=== PATIENT | female | born 1985 | race Caucasian/White ===

== ENCOUNTER → 2020-01-15 09:43 | Outpatient (BNVA) | payer MEDICAID, SELFPAY | PROVIDERS: PCP Internal Medicine; Referring Provider Internal Medicine; Visit Provider Nurse Practitioner Psychiatric/Mental Health | DX: F11.99 Opioid use, unspecified with unspecified opioid-induced disorder (principal); E66.9 Obesity, unspecified; F31.81 Bipolar II disorder; Z68.39 Body mass index [BMI] 39.0-39.9, adult | CPT/HCPCS: 80305; 99213 ==

== ENCOUNTER → 2020-01-19 08:04 | Outpatient (BNVA) | payer MEDICAID, SELFPAY | PROVIDERS: PCP Internal Medicine; Referring Provider Internal Medicine; Visit Provider Surgery | DX: E66.9 Obesity, unspecified (principal); Z68.39 Body mass index [BMI] 39.0-39.9, adult | CPT/HCPCS: 99214 ==

== ENCOUNTER 2020-01-21 08:30 | Outpatient (REF) | payer MEDICAID, SELFPAY ==
[2020-01-23 16:07] LABS: H Pylori Breath Test NOT DETECTED (NOT DETECTED)
== END 2020-01-21 08:31 | disposition home or self-care (01) ==
LOC: HO.LNP 08:30
PROVIDERS: Visit Provider Surgery
DX: E66.01 Morbid (severe) obesity due to excess calories (principal); Z11.0 Encounter for screening for intestinal infectious diseases
CPT/HCPCS: 83013

== ENCOUNTER → 2020-01-26 08:10 | Outpatient (BNVA) | payer MEDICAID, SELFPAY | PROVIDERS: PCP Internal Medicine; Visit Provider Surgery | DX: E66.9 Obesity, unspecified (principal); Z68.38 Body mass index [BMI] 38.0-38.9, adult; Z71.3 Dietary counseling and surveillance | CPT/HCPCS: 99214 ==

== ENCOUNTER 2020-01-27 10:38 | Outpatient (REF) | payer MEDICAID, SELFPAY | END 2020-01-27 10:39 | disposition home or self-care (01) | LOC: HO.LAB 10:38 | PROVIDERS: PCP Internal Medicine; Visit Provider Surgery | DX: Z13.89 Encounter for screening for other disorder (principal) ==

== ENCOUNTER → 2020-01-27 11:15 | Outpatient (BNVA) | payer MEDICAID, SELFPAY | PROVIDERS: PCP Internal Medicine; Visit Provider Physician Assistant ==

== ENCOUNTER 2020-01-29 08:09 | Inpatient (IN) | payer MEDICAID, SELFPAY ==
[2020-01-26 10:20] VITALS: BMI 38.4
[2020-01-27 12:40] LABS: MANUAL DIFF FLAG NO
[2020-01-27 12:54] LABS: Basophils Percent Auto 0.3 % (0-2); Eosinophils Absolute Auto 0.1 X10*3/uL (0.0-0.4); Eosinophils Percent Auto 1.2 % (0-4); Hematocrit 48.4 % (37-47); Hemoglobin 16.1 g/dl (12.0-16.0); Imm Gran Abs Auto 0.01 X10*3/uL (0.00-0.03); Imm Gran Pct Auto 0.2 % (0.0-0.4); Lymphocytes Absolute Auto 1.7 X10*3/uL (1.2-4.9); Mean Corpuscular HGB Conc 33.3 g/dl (31.0-35.0); Mean Corpuscular Hemoglobin 29.8 pg (27.0-33.0); Mean Corpuscular Volume 89.6 fL (80-98); Mean Platelet Volume 10.6 fL (9.4-12.3); Monocytes Absolute Auto 0.3 X10*3/uL (0.1-1.2); Monocytes Percent Auto 5.2 % (2-11); Neutrophils Absolute Auto 3.9 X10*3/uL (2.0-8.3); Neutrophils Percent Auto 65.1 % (45-73); Platelet Count 233 X10*3/uL (160-400); Red Cell Distribution Width 12.6 % (11.0-16.0); White Blood Count 5.9 X10*3/uL (4.8-10.8)
[2020-01-27 12:55] LABS: Estimated Average Glucose 100 mg/dL; Hemoglobin A1c % 5.1 %
[2020-01-27 13:15] LABS: Partial Thromboplastin Time 33.7 SEC (24.1-38.0)
[2020-01-27 13:30] LABS: Alanine Aminotransferase 206 U/L (0-31); Albumin Level 4.5 g/dL (3.5-5.0); Alkaline Phosphatase 126 U/L (39-117); Anion Gap 14 (12-20); Aspartate Amino Transferase 97 U/L (5-31); Bilirubin Total 0.9 mg/dL (0.0-1.0); Blood Urea Nitrogen 13 mg/dL (9-16); C Reactive Protein 0.77 mg/dL (< or = 0.50); Calcium 9.2 mg/dL (8.4-10.2); Carbon Dioxide 24 mmol/L (22-29); Chloride 105 mmol/L (96-108); Cholesterol 154 mg/dL; Creatinine Clr Calc Pharmacy 107.6; Estimated Glomerular Filt Rate > 60; Glucose Random 88 mg/dL (60-115); HDL Cholesterol 39 mg/dL; LDL Cholesterol Calculated 99 mg/dl; Potassium 4.3 mmol/l (3.3-5.1); Sodium 139 mmol/L (135-145); Total Protein 7.1 g/dL (6.5-8.0); Triglycerides 80 mg/dL
[2020-01-27 13:38] LABS: TSH reflex Free T4 0.68 mIU/mL (0.32-4.0)
--- NOTE | 2020-01-27 14:59 | HO.ANESPROP2 ---
Documented by User: Ellen Zaldivar 01/27/20 15:10 HPI - Anesthesia Eval Consult details Narrative: 35yo F for lap sleeve Pt on Suboxone (20mg total daily). Rev'd with Dr Hua and Carlotta Gonzalez NP (prescriber). Pt to continue suboxone preoperatively Cardiac cleared PMFSH Past Medical History Medical History (Updated 01/27/20 @ 15:00 by Ellen Zaldivar) Anxiety Bipolar 2 disorder Depression Obesity Opioid use disorder PTSD (post-traumatic stress disorder) Family History Family History (Updated 01/20/20 @ 15:37 by Masood Calvert [facility]) Father No problems noted. Mother No problems noted. Surgical History Surgical History Hx of bilateral breast reduction surgery Hx of section History of Problems with Anesthesia: No Social History Social History (Updated 01/20/20 @ 15:37 by Masood Calvert [facility]) Are you a primary lpn care manager to a significant other at home: No Do you presently have visiting nurse or other home services: No Alcohol intake: unknown Smoking Status: Former smoker Packs Per Day: 0.5 Cigarettes Per Day: 10.0 Years Smoked: 20 Smoked in Last 30 Days: No Smoking Quit Date: 11/2019 Use of substances other than those prescribed or required for medical reasons: No Substance Use Type: Heroin Substance Use Type Other:: Rx suboxone - S/P cocaine and Opiod abuse Have you been hit, kicked, punched, or otherwise hurt by someone within the past year? If so, by whom?: No [facility]: [facility] Advance Directives: No (SSS PATIENT) Advance Directives Information Provided: No (SSS PATIENT) Recently lost weight without trying: No Meds Allergies Allergy/AdvReac Type Severity Reaction Status Date / Time Sulfa (Sulfonamide AdvReac Intermediate Itching Verified 01/26/20 10:17 Antibiotics) [SULFA(SULFONAMIDE ANTIBIOTICS)] sumatriptan [From IMITREX] AdvReac Mild Vomiting Verified 01/26/20 10:17 Home Medications Medication Instructions Recorded Confirmed Type clonazepam 0.5 mg tablet 0.5 mg PO BID 01/15/20 01/29/20 History duloxetine 20 mg capsule,delayed 20 mg PO DAILY cap 01/15/20 01/26/20 History release cholecalciferol (vitamin D3) 50 mcg PO DAILY 01/26/20 01/29/20 History [Vitamin D3] cyanocobalamin (vitamin B-12) 1,000 mcg PO DAILY 01/26/20 01/29/20 History [Vitamin B-12] Exam Exam Date and Time: January 27, 2020 1459 Height,Weight and Vital Signs: Height 5 ft 3 in Weight 98.43 kg Pertinent Lab Results Pertinent Lab Results: Laboratory Tests 01/27/20 01/27/20 01/27/20 11:10 11:10 11:10 WBC 5.9 RBC 5.40 Hgb 16.1 H Hct 48.4 H MCV 89.6 MCH 29.8 MCHC 33.3 RDW 12.6 Plt Count 233 MPV 10.6 Immature Gran % (Auto) 0.2 Neut % (Auto) 65.1 Lymph % (Auto) 28.0 Surry % (Auto) 5.2 Eos % (Auto) 1.2 Baso % (Auto) 0.3 Lymph # (Auto) 1.7 Surry # (Auto) 0.3 Eos # (Auto) 0.1 Baso # (Auto) 0.0 Abs Immat Gran (auto) 0.01 Absolute Neuts (auto) 3.9 Absolute Nucleated RBC 0.000 Nucleated RBC % (auto) 0.0 APTT 33.7 Sodium 139 Potassium 4.3 Chloride 105 Carbon Dioxide 24 Anion Gap 14 BUN 13 Creatinine 0.80 Estim Creat Clear Calc 107.6 Estimated GFR > 60 Random Glucose 88 Estimat Average Glucose Hemoglobin A1c % Calcium 9.2 Total Bilirubin 0.9 AST 97 H ALT 206 H Alkaline Phosphatase 126 H C-Reactive Protein 0.77 H Total Protein 7.1 Albumin 4.5 Triglycerides 80 Cholesterol 154 LDL Cholesterol, Calc 99 HDL Cholesterol 39 TSH 0.68 Blood Type Antibody Screen 01/27/20 01/27/20 11:10 11:10 WBC RBC Hgb Hct MCV MCH MCHC RDW Plt Count MPV Immature Gran % (Auto) Neut % (Auto) Lymph % (Auto) Surry % (Auto) Eos % (Auto) Baso % (Auto) Lymph # (Auto) Surry # (Auto) Eos # (Auto) Baso # (Auto) Abs Immat Gran (auto) Absolute Neuts (auto) Absolute Nucleated RBC Nucleated RBC % (auto) APTT Sodium Potassium Chloride Carbon Dioxide Anion Gap BUN Creatinine Estim Creat Clear Calc Estimated GFR Random Glucose Estimat Average Glucose 100 Hemoglobin A1c % 5.1 Calcium Total Bilirubin AST ALT Alkaline Phosphatase C-Reactive Protein Total Protein Albumin Triglycerides Cholesterol LDL Cholesterol, Calc HDL Cholesterol TSH Blood Type A Positive Antibody Screen NEGATIVE Narrative Narrative: EKG 12/03/19: SB@49, ?LAE, poor R wave progression (Nain likely r/t clonidine tx per cardiology clearance) ECHO 12/2019: LVEF 60-65%, no obvious valve path Assessment and Plan Assessment Anesthesia Assessment: Chart Reviewed Documented by User: Stacey Ann 01/29/20 10:22 PMFSH Past Medical History Medical History (Updated 01/27/20 @ 15:00 by Ellen Zaldivar) Anxiety Bipolar 2 disorder Depression Obesity Opioid use disorder PTSD (post-traumatic stress disorder) Family History Family History (Updated 01/20/20 @ 15:37 by Masood Calvert CMA) Father No problems noted. Mother No problems noted. Surgical History Surgical History Hx of bilateral breast reduction surgery Hx of section History of Problems with Anesthesia: No Social History Social History (Updated 01/20/20 @ 15:37 by Masood Calvert CMA) Are you a primary lpn care manager to a significant other at home: No Do you presently have visiting nurse or other home services: No Alcohol intake: unknown Smoking Status: Former smoker Packs Per Day: 0.5 Cigarettes Per Day: 10.0 Years Smoked: 20 Smoked in Last 30 Days: No Smoking Quit Date: 11/2019 Use of substances other than those prescribed or required for medical reasons: No Substance Use Type: Heroin Substance Use Type Other:: Rx suboxone - S/P cocaine and Opiod abuse Have you been hit, kicked, punched, or otherwise hurt by someone within the past year? If so, by whom?: No [facility]: [facility] Advance Directives: No (SSS PATIENT) Advance Directives Information Provided: No (SSS PATIENT) Recently lost weight without trying: No Meds Allergies Allergy/AdvReac Type Severity Reaction Status Date / Time Sulfa (Sulfonamide AdvReac Intermediate Itching Verified 01/26/20 10:17 Antibiotics) [SULFA(SULFONAMIDE ANTIBIOTICS)] sumatriptan [From IMITREX] AdvReac Mild Vomiting Verified 01/26/20 10:17 Home Medications Medication Instructions Recorded Confirmed Type clonazepam 0.5 mg tablet 0.5 mg PO BID 01/15/20 01/29/20 History duloxetine 20 mg capsule,delayed 20 mg PO DAILY cap 01/15/20 01/26/20 History release cholecalciferol (vitamin D3) 50 mcg PO DAILY 01/26/20 01/29/20 History [Vitamin D3] cyanocobalamin (vitamin B-12) 1,000 mcg PO DAILY 01/26/20 01/29/20 History [Vitamin B-12] Exam Height,Weight and Vital Signs: Vital Signs Temp Pulse Resp BP Pulse Ox 01/29/20 08:32 97.9 F 61 16 112/74 96 Pertinent Lab Results Pertinent Lab Results: 12 lead ekg obtained secondsry to abnormal ekg with flipped T waves on monitor screen. Showed flattened T waves V2 lead. Marked SB 43 Airway Mallampati Class: II TM Dist: >3cm Neck ROM: Full Heart: RRR Lungs: CTAB Assessment and Plan Assessment Anesthesia Assessment: Anesthesia Plan Discussed and Chart Reviewed Final Anesthetic Review NPO: Yes ASA Class: III Final Preanesthetic Review: No Changes in Pt Med Stat, Meds/Allgs Chart Reviewed, Consent Obtained/Reviewed and Anes Risks/Benef Reviewed Patient Risk: Intermediate Procedure Risk: Intermediate Anesthetic Plan Anesthetic Plan: GA Disposition: Standard PACU and Inp. Admit - Standard Bed
[2020-01-29] VITALS (13 sets, daily range): BP systolic 110–146; BP diastolic 66–96; PULSE 42–92; RESP 11–19; TEMP 35.9–36.6; O2SAT 94–100
--- NOTE | 2020-01-29 07:48 | PC.NURSE ---
patient is late. called her number and went to voice mail unable to leave a message due to voice mail being full.
--- NOTE | 2020-01-29 08:07 | PC.NURSE ---
md de los santos is aware that the patient only drank 1/2 the prep but states her output is clear. also has a mirena. no preg test needed.
[2020-01-29] MEDS: Lactated Ringers 1,000 ML 100 ML IVCONT (08:49)
[2020-01-29] MEDS: Lactated Ringers 1,000 ML 999 ML IVCONT (08:50)
[2020-01-29 09:08] LABS: SARS COV2 PCR INHOUSE NEGATIVE (Negative)
--- NOTE | 2020-01-29 09:25 | ECG_ITS ---
Test Reason : ANESTHESIA Blood Pressure : / mmHG Vent. Rate : 043 BPM Atrial Rate : 043 BPM P-R Int : 168 ms QRS Dur : 088 ms QT Int : 460 ms P-R-T Axes : 053 019 018 degrees QTc Int : 388 ms Marked sinus bradycardia RSR' or QR pattern in V1 suggests right ventricular conduction delay Early repolarization Abnormal ECG When compared with ECG of 26-NOV-2019 09:41, Vent. rate has decreased BY 36 BPM Referred By: Stacey Ann Electronically Signed By:STONE MALLORY MD
[2020-01-29] MEDS: Gabapentin 600 MG TABLET PO ×2 (09:32→09:35)
--- NOTE | 2020-01-29 09:37 | PC.NURSE ---
ekg being performed due to inverted t waves. asymptomatic.
--- NOTE | 2020-01-29 09:54 | MHC.SHP ---
Pre-Procedural Eval Section A The patient is an INPATIENT: Yes The History & Physical has been completed within 30 days and I have reviewed it.: Yes Section B Chief Complaint: Obesity Details of Present Illness: and cholelithiasis with elevated liver function tests Relevant Family History (Specify if Yes): No Relevant Social History: None Present Medications: see Short Stay Collaborative assessment Allergies: Allergies Allergy/AdvReac Type Severity Reaction Status Date / Time Sulfa (Sulfonamide AdvReac Intermediate Itching Verified 01/26/20 10:17 Antibiotics) [SULFA(SULFONAMIDE ANTIBIOTICS)] sumatriptan [From IMITREX] AdvReac Mild Vomiting Verified 01/26/20 10:17 Review of Systems Sugical H&P ROS: Negative: Constitution, Cardiovascular, Respiratory, Neurological, Psychiatric, Hem-Onc, Allergic/Immunologic, Gastrointestinal, Genitourinary, Musculoskeletal, Integumentary, Endocrine and Eyes/Ears/Nose/Throat Exam Surgical H&P Exam: Normal: HEENT, Normal: Heart, Normal: Lungs, Normal: Extremities, Normal: Abdomen, Normal: Skin and Normal: Neurological Plan Diagnosis/Plan: Change (Sleeve gastrectomy and possible cholecystectomy. Plan was discussed with the patient.) Patient has been examined and remains a candidate for the planned procedure
[2020-01-29] MEDS: ceFAZolin Sodium/Dextrose,Iso 2 GM/50 ML PIGGYBACK IV ×2 (10:06→14:58)
--- NOTE | 2020-01-29 12:47 | P.BOP_ITS ---
Brief Operative Note Date of procedure: 01/29/20 Pre-op diagnosis: Refractory severe obesity with a BMI of 38.5 kg/m2 and associated comorbidities Post-op diagnosis: same (& diaphragmatic hernia) Procedure: INITIAL PATIENT BMI ON PRESENTATION AT OUR OFFICE: 42.4 kg/m2 LAST BMI BEFORE SURGERY: 38.5 kg/m2 COMORBIDITIES: Diaphragmatic hernia, anxiety, depression, asymptomatic cholelithiasis, elevated liver nezymes, liver steatosis, asthma, history of heroin addiction The patient participated in an intensive weekly lifestyle intervention and exercise program during which the patient has lost between the initial office visit and the last preoperative visit 21.9 lbs, or 9.16% of initial actual body weight. The patient met the BMI-criteria for bariatric surgery based on the BMI on initial presentation. The patient should not be penalized for achieving such weight loss because it is not sustainable long-term without surgical intervention and it was achieved in preparation for bariatric surgery under my direction and based on my published research ([email or web address] and [email or web address]/[email or web address])[email or web address]-X/pdf) that a 10% preoperative weight loss improves long-term weight loss after surgery and reduces perioperative complications. Insurance carriers such as [facility] have endorsed my recommendations and have included in their policies criteria to include a 10% preoperative weight loss requirement. PROCEDURE: Esophago-gastroscopy, laparoscopic repair of incarcerated diaphragmatic hernia, laparoscopic sleeve gastrectomy and laparoscopic gastropexy INDICATIONS: This is a 35 year-old female who was electively scheduled for laparoscopic, possibly open sleeve gastrectomy. The risks and complications of the procedure were discussed with the patient in advance, particularly the possibility of ; pulmonary embolism; staple line leak; bleeding; GERD; cardiac, pulmonary, or renal complications; as well as long-term problems such as insufficient weight loss, vitamin deficiency, strictures, or ulcers. The patient understood all the risks, and was in agreement to proceed with surgery. DESCRIPTION OF PROCEDURE: After informed consent was obtained from the patient, the patient was given preoperative antibiotics, and was transferred to the operating room. After successful induction of general anesthesia, pneumatic compressive devices were placed on both lower extremities. An upper endoscopy was performed next. The oropharynx and esophagus appeared to be within normal limits. There was a diaphragmatic hernia present of moderate size consistent with the findings of the preoperative upper GI. The stomach was entered. Then after all fluid and air were suctioned and the stomach was fully decompressed, the scope was withdrawn and secured in the mid esophagus. The patient was then prepped and draped in the usual sterile manner, and abdominal access was established at the right upper quadrant with the Leola technique. A 12 mm blunt port was inserted, and the abdomen was insufflated with CO2 to a pressure of 15 mmHg. Under direct visualization, additional ports were placed, specifically two 5 mm Versi-step ports to the left upper quadrant, and a 5 mm Versi-Step port to the right upper quadrant. 1% lidocaine plan was used to infiltrate all port sites as well as all fascia defects. Using the EndoClose suture passer device, I placed a #1 Polysorb tie across the falciform ligament in order to retract it up against the abdominal wall and prevent injury of the ligament with our instruments during the procedure. Following that, the patient was placed in a steep reverse Trendelenburg position. An additional 5 mm port was placed to the right flank for the Mediflex retractor that was used to retract the left lobe of the liver. The gastro-esophageal fat pad was opened with the ultrasonic device (Thunderbeat, Olympus) and the anterior esophagus and hiatus were exposed. The angle of His was opened with the ultrasonic device the fundus of the stomach from any diaphragmatic and splenic attachments. I then opened the gastrocolic ligament between the transverse colon and the greater curvature of the stomach with the ultrasonic device to enter the lesser sac and facilitate the ligation of the short gastric vessels. I started at a mid-point along the greater curvature and using the Thunderbeat, all short gastric vessels were divided all the way to the angle of His until the left juan was completely dissected at its entirety. I then divided the gastro-colic ligament distally to a distance of about 3-4 cm proximal to the esophagus. There was an obvious significant-sized hiatal hernia. I continued dissecting along the hiatus toward the left juan and the angle of His. I fully mobilized the fat pad that was incarcerated in the hernia. I then continued by dissecting even further into the posterior retro-esophageal space all the way to the angle of His. I dissected completely the right juan as well. I continued to mobilize the esophagus into the mediastinum circumferentially. Both vagal nerves were seen and preserved. At that point, I was able to have at least 3 to 5 cm of esophagus into the abdomen. After I completely mobilized the esophagus from both the left and right juan and I had a good mobilization of the esophagus circumferentially, I closed the hernia defect with three interrupted #0 Surgidac sutures using the Endo Stitch device, two of which were placed posterior and one anterior to the esophagus. The stomach was then divided transversely with one Endo ADRIENNE-45 purple and four ADRIENNE-60 articulating orange loads using the AEON stapler and loads. Every effort was made that the gastric sleeve had a tubular shape and an even caliber throughout. Once the sleeve resection was completed, the staple line of the gastric sleeve was reinforced with Hemoclips. The resected stomach was retrieved without difficulty from the Leola port. A gastropexy was then performed in order to prevent postoperative GERD and partial gastric volvulus. Several interrupted 2.0 Surgidac sutures were placed between the sleeve's staple line and the previously divided greater omentum and gastro-colic ligament using the Endo-Stitch device. An upper endoscopy was performed. There was no narrowing at the GE junction. The scope was easily advanced all the way to the pylorus which was clearly visualized. There was no narrowing anywhere and the sleeve's caliber was even throughout. The sleeve's staple line was inspected and there was no evidence of ischemia, bleeding or dehiscence. At that point the gastroscope was withdrawn from the patient?s mouth while we were decompressing the bowel and the stomach from any remaining air. I looked into the lesser sac to see how the sleeve was situating and it was situating well. There was no bleeding from the staple line, spleen, or short gastric vessels. The Mediflex retractor was removed, and the undersurface of the liver was inspected and there was no bleeding. The patient was placed in supine position. The gallbladder was inspected. It was retracted cephalad. There were few adhesions but it was not inflammed or thickened. I decided not to proceed with cholecystectomy at this time. We may plan this once weight loss is achieved. I closed the fascial defect of the 12 mm port site with a figure of eight #1 Polysorb suture. Then 100 cc 0.25 % Marcaine plain with 10 mg of Dexamethasone were used to infiltrate the fascial closure as well as all skin incisions. At this point, the abdomen was deflated, all ports were removed under direct vision, and no bleeding was noted from any of the port sites. The skin incisions were irrigated with saline and were closed with 4-0 absorbable monofilament sutures. Steri-Strips and OpSites were used to cover all incisions. The patient was extubated and was transferred in stable condition to the recovery room for further care. I was present and performed all martines parts of the procedure. Ms. Todd was the first front ventilator. There were no residents to assist with this case. Please send copy of the operative report to Dr. Remy James. Nick Chen MD, PhD, FACS Surgeon: Gilbert Chen MD Anesthesia: GETA, local and other (TAP block) Wet Machine Tender: Sophie Todd Estimated blood loss (mL): 10 Tourniquet time (min): 0 IV fluids (mL): 3,000 Urine output (mL): 0 (No James to record) Pathology: other (Stomach) Condition: stable Disposition: PACU
--- NOTE | 2020-01-29 12:56 | P.PNGS_ITS ---
Subjective Subjective Interval history: Patient has mild incisional pain. Was able to ambulate and use the incentive spirometer. Physical Exam Vital Signs: Vital Signs: Vital Signs Temp Pulse Resp BP Pulse Ox 01/29/20 12:40 97.8 F 71 14 121/85 100 01/29/20 08:32 97.9 F 61 16 112/74 96 Body Mass Index 38.4 GI: Inspection: Yes normal to inspection and Yes incision (incisions dry, clean and intact) Extrem: Right lower extremity: normal to inspection (no calf tenderness) Left lower extremity: normal to inspection (no calf tenderness) Progress Note: A&P Assessment and plan (1) Opioid use disorder: Problem details: Suboxone daily (8+4+8) Status: Acute (2) BMI 39.0-39.9,adult: Status: Acute (3) BMI 38.0-38.9,adult: Status: Acute (4) Obesity: Status: Acute Assessment and Plan: 35 year old female was admitted 01/29/20 with morbid obesity and comorbidities. Problem 1: s/p laparoscopic sleeve gastrectomy, diaphragmatic hernia repair, gastropexy Status: Doing well Plan: Check am labs, If OK, will continue phase 1 bariatric diet and discharge later today. (5) Bipolar 2 disorder: Status: Acute (6) Diaphragmatic hernia: Status: Acute (7) S/P laparoscopic sleeve gastrectomy: Status: Acute (8) Status post repair of paraesophageal diaphragmatic hernia: Status: Acute (9) Steatosis, liver: Status: Acute (10) Asthma: Status: Acute (11) Cholelithiasis: Status: Acute (12) Elevated liver enzymes: Status: Acute Fall Risk Details Current Medications: Current Medications Generic Name Dose Route Start Last Admin Trade Name Freq PRN Reason Stop Dose Admin Buprenorphine/Naloxone 1 film 01/29/20 21:00 Buprenorphine/Naloxone 8/2 Mg Film SUBLINGUAL BID PERRY Buprenorphine/Naloxone 1 film 01/29/20 15:00 Buprenorphine/Naloxone 4/1 Mg Film SUBLINGUAL DAILY PERRY Buprenorphine/Naloxone 1 film 01/30/20 09:00 Buprenorphine/Naloxone 4/1 Mg Film SUBLINGUAL DAILY PERRY Clonazepam 0.5 mg 01/29/20 12:44 Clonazepam 0.5 Mg Tablet PO BID PRN Anxiety Clonazepam 0.5 mg 01/29/20 21:00 Clonazepam 0.5 Mg Tablet PO BID PERRY Clonidine HCl 0.2 mg 01/29/20 15:00 Clonidine Hcl 0.2 Mg Tablet PO BID [facility] Protocol Clonidine HCl 0.3 mg 01/29/20 22:00 Clonidine Hcl 0.1 Mg Tablet PO DAILY [facility] Protocol Duloxetine HCl 20 mg 01/30/20 09:00 Duloxetine Hcl 20 Mg Capsule.Dr PO DAILY [facility] Famotidine 20 mg 01/29/20 13:00 Famotidine/Pf 20 Mg/2 Ml Vial IVPUSH BID [facility] Fentanyl 25 mcg 01/29/20 10:32 Fentanyl Citrate/Pf 100 Mcg/2 Ml Vial IVPUSH Q5M PRN Pain, Moderate (Pain Scale 4-6 Hydromorphone HCl 0.25 mg 01/29/20 10:32 Hydromorphone Hcl 0.5 Mg/0.5 Ml Syringe IVPUSH Q5M PRN Pain, Severe (Pain Scale 7-10) Hydromorphone HCl 0.25 mg 01/29/20 12:39 Hydromorphone Hcl 0.5 Mg/0.5 Ml Syringe IVPUSH Q4H PRN Pain, Severe (Pain Scale 7-10) Lactated Ringer's 1,000 mls @ 100 mls/hr 01/29/20 07:45 01/29/20 08:49 Lr IVCONT 100 mls/hr .Q10H PERRY Administration Lactated Ringer's 1,000 mls @ 150 mls/hr 01/29/20 12:45 Lr IVCONT .Q6H40M [facility] Cefazolin Sodium/Dextrose 2 gm in 50 mls @ 100 mls/hr 01/29/20 12:39 Ancef IV 01/29/20 13:08 POSTOP ONE Acetaminophen 1,000 mg in 100 mls @ 400 mls/hr 01/29/20 12:45 Ofirmev IV Q6H [facility] Metoclopramide HCl 10 mg 01/29/20 12:39 Metoclopramide Hcl 10 Mg/2 Ml Vial IVPUSH Q6H PRN Nausea Ondansetron HCl 4 mg 01/29/20 10:32 Ondansetron Hcl 4 Mg/2 Ml Vial IVPUSH ONCE PRN Nausea and Vomiting Ondansetron HCl 4 mg 01/29/20 12:45 Ondansetron Hcl 4 Mg/2 Ml Vial IVPUSH Q4H PERRY Sodium Chloride 3 ml 01/29/20 16:00 0.9 % Sodium Chloride Flush 3 Ml Syringe IVFLUSH QSHIFT PERRY Time Spent With Patient Time: Total time spent is greater than 50% in coordination of care (as documented) at patient's floor/unit and/or counseling patient: Time with patient: less than 15 minutes
[2020-01-29] MEDS: Famotidine/PF 20 MG/2 ML VIAL IVPUSH ×2 (13:07→20:58)
[2020-01-29 13:32] LABS: Insulin Level Total 5.6 uIU/mL
[2020-01-29 13:45] LABS: Hematocrit 46.3 % (37-47); Hemoglobin 15.4 g/dl (12.0-16.0)
[2020-01-29 14:07] LABS: Anion Gap 12 (12-20); Blood Urea Nitrogen 10 mg/dL (9-16); Calcium 8.9 mg/dL (8.4-10.2); Carbon Dioxide 25 mmol/L (22-29); Chloride 104 mmol/L (96-108); Estimated Glomerular Filt Rate > 60; Glucose Random 111 mg/dL (60-115); Potassium 4.2 mmol/l (3.3-5.1); Sodium 137 mmol/L (135-145)
[2020-01-29] MEDS: Lactated Ringers 1,000 ML 150 ML IVCONT ×2 (14:15→20:23)
[2020-01-29] MEDS: ondansetron HCL 4 MG/2 ML VIAL IVPUSH ×2 (14:18→20:59)
--- NOTE | 2020-01-29 14:53 | MHC.CM.PN ---
NURSE SERVICE ASSOCIATE NOTE ELECTRONIC MEDICAL RECORD REVIEWED ALONG WITH CASE DISCUSSED WITH STAFF NURSE. MET WITH PATIENT AND EXPLAINED THE ROLE OF THE NURSE CARE MANAGERIN THE TRANSITION FROM THE HOSPITAL TO HOME , PATIENT IS OPERATIVE DAY BARIATRIXC SURGERY, MET PATIENT WHOM REPORTED THAT SHE LIVES WITH HER PARENTS AND 13 YEAR OLD DAUGHTER, SHE IS ACTIVE, INDEPENDENT IN ALL ADLS AND MOBILITY WITHOUT ANY DEVICE, SHE HAS A HISTORY OF SUBSTANCE ABUSE AND \IS FOLLOWED IN THE [facility] SHE ALSO HAS A MENTAL HEALTH HISTORY AND IS FOLLOWED BY BOTH PSYCHIATRIST AND THEARPIST , DISCHARGE PLAN HOME NO NEW SERVICES SELF RESUMPTIN OF HER [facility] FOLLOW UP SELF RESUMPTION OF HER MENTAL HEALTH COUNSELING TRANSP-FAMILY PCP DR HERNANDEZ , SHE WAS INSTRUCTED TO CALL HIME FOR POST DISCHAGRE FOLLOW UP BARIATRIC F/U PER DISCHAGE INSTRUCTINS
[2020-01-29] MEDS: Buprenorphine/Naloxone 4/1 mg FILM 1 FILM SUBLINGUAL (14:58)
[2020-01-29] MEDS: HYDROmorphone HCl 0.5 MG/0.5 ML SYRINGE 0.25 MG IVPUSH (17:05)
[2020-01-29] MEDS: Buprenorphine/Naloxone 8/2 mg FILM 1 FILM SUBLINGUAL (21:00)
[2020-01-29] MEDS: cloNIDine HCL 0.2 MG TABLET PO (21:02)
[2020-01-29] MEDS: cloNIDine HCL 0.1 MG TABLET 0.3 MG PO (21:03)
[2020-01-30] MEDS: Lactated Ringers 1,000 ML 150 ML IVCONT (02:27)
[2020-01-30 03:35] VITALS: BP 127/75; PULSE 42; RESP 16; TEMP 36.5; O2SAT 97
[2020-01-30 06:17] LABS: MANUAL DIFF FLAG NO
[2020-01-30] MEDS: ondansetron HCL 4 MG/2 ML VIAL IVPUSH (06:18)
[2020-01-30 06:40] LABS: Basophils Percent Auto 0.1 % (0-2); Hematocrit 40.1 % (37-47); Hemoglobin 13.6 g/dl (12.0-16.0); Imm Gran Abs Auto 0.03 X10*3/uL (0.00-0.03); Imm Gran Pct Auto 0.3 % (0.0-0.4); Lymphocytes Absolute Auto 1.8 X10*3/uL (1.2-4.9); Lymphocytes Percent Auto 17.3 % (20-40); Mean Corpuscular HGB Conc 33.9 g/dl (31.0-35.0); Mean Corpuscular Volume 88.5 fL (80-98); Monocytes Absolute Auto 0.6 X10*3/uL (0.1-1.2); Monocytes Percent Auto 5.5 % (2-11); Neutrophils Absolute Auto 7.8 X10*3/uL (2.0-8.3); Neutrophils Percent Auto 76.8 % (45-73); Platelet Count 180 X10*3/uL (160-400); Red Blood Count 4.53 X10*6/uL (4.20-5.50); Red Cell Distribution Width 12.1 % (11.0-16.0); White Blood Count 10.1 X10*3/uL (4.8-10.8)
[2020-01-30 06:43] LABS: Anion Gap 14 (12-20); Blood Urea Nitrogen 9 mg/dL (9-16); Calcium 8.4 mg/dL (8.4-10.2); Carbon Dioxide 22 mmol/L (22-29); Chloride 106 mmol/L (96-108); Creatinine Clr Calc Pharmacy 126.6; Estimated Glomerular Filt Rate > 60; Glucose Random 100 mg/dL (60-115); Potassium 4.5 mmol/l (3.3-5.1); Sodium 137 mmol/L (135-145)
[2020-01-30 07:35] VITALS: BP 100/61; PULSE 63; RESP 18; TEMP 36.3; O2SAT 97
--- NOTE | 2020-01-30 11:36 | MHC.CM.PN ---
NURSE [employer] NOTE LATE ENTRY ELECTRONIC MEDICAL RECORD REVIEWED ALONG WITH CASE DISCUSSED WITH STAFF JAMES . PATIENT IS AWARE THAY SHE WILL BE DISCHAGED HOME TODAY NO SERVCIES (NEW) SELF RESUMTPION OF THE [facility] FOR [facility]BOX[facility] SELF RESUMPTION OF HER MENTAL HEALTH COUNSELING SERVICES TRANSPORTATION FAMILY PCP PATIENT INSTRUCTED TO CALL FOR POST HOSPITALIZATION DISCHARGE BARIATRIC SURGERY FOLLOW UP INDICATED ON THE DISCHAGRE INST\RUCTIONS
--- NOTE | 2020-01-30 13:43 | HO.POSTANES ---
Post Anesthesia Evaluation Post Anesthesia Evaluation Vital Signs: Vital Signs Temp Pulse Resp BP Pulse Ox 01/30/20 07:35 97.4 F 63 18 100/61 97 01/30/20 03:35 97.7 F 42 L 16 127/75 97 Anesthesia: General Endotracheal-GETA Mental Status: Awake Pain Control: Satisfactory Nausea/Vomiting: None Hydration: Adequate Anesthesia-Related Issues: No Anes. Related Issues
--- NOTE | 2020-03-24 13:08 | P.DS_ITS ---
DS: Providers Provider Date of admission: 01/29/20 08:09 Primary care physician: Unknown Physician DS: Diagnosis Discharge Diagnosis (1) Opioid use disorder: Status: Acute (2) BMI 39.0-39.9,adult: Status: Acute (3) BMI 38.0-38.9,adult: Status: Acute (4) Obesity: Status: Acute (5) Bipolar 2 disorder: Status: Acute (6) Diaphragmatic hernia: Status: Acute (7) S/P laparoscopic sleeve gastrectomy: Status: Acute (8) Status post repair of paraesophageal diaphragmatic hernia: Status: Acute (9) Steatosis, liver: (10) Asthma: (11) Cholelithiasis: Status: Acute (12) Elevated liver enzymes: Status: Acute DS: Medications Discharge Medications Home Medications: Home Medications Medication Instructions Recorded Confirmed clonazepam 0.5 mg tablet 0.5 mg PO BID 01/15/20 01/29/20 duloxetine 20 mg capsule,delayed 20 mg PO DAILY cap 01/15/20 01/26/20 release Previous Rx's Medication Instructions Recorded ondansetron HCl 4 mg tablet 4 mg PO Q6H PRN #30 tab 01/26/20 pantoprazole 40 mg tablet,delayed 40 mg PO DAILY #30 tab 01/26/20 release sucralfate 1 gram tablet 1 g PO BID #60 tab 02/19/20 sucralfate 100 mg/mL oral 10 ml PO BID #420 ml 02/19/20 suspension buprenorphine 4 mg-naloxone 1 mg 1 film SUBLINGUAL DAILY #21 ea 03/04/20 sublingual film buprenorphine 8 mg-naloxone 2 mg 1 film SUBLINGUAL BID #42 ea 03/04/20 sublingual film DS: Summary Time Spent with Patient Time attestation: Total time spent providing and/or coordinating discharge services: Physical Exam Vital Signs: Vital Signs: Last Vital Signs Temp 97.4 F 01/30/20 07:35 Pulse 63 01/30/20 07:35 Resp 18 01/30/20 07:35 BP 100/61 01/30/20 07:35 Pulse Ox 97 01/30/20 07:35 Body Mass Index 38.4 DS: Data Data Completed and Pending Completed studies during hospitalization [Text1]: Pending at discharge 01/29/20 12:41 Surgical [PTH] Routine Procedures Excision of Stomach, Percutaneous Endoscopic Approach, Vertical (01/29/20) Repair Diaphragm, Percutaneous Endoscopic Approach (01/29/20) Labs on day of discharge: 01/27/20 11:10 Type and Screen Routine C Reactive Protein Routine Complete Blood Count Auto Diff Routine Comprehensive Met. Panel Routine Hemoglobin A1c Routine Insulin Level Total Routine Lipid Panel Routine Partial Thromboplastin Time Routine TSH reflex Free T4 Routine 01/29/20 07:41 Acetaminophen [Ofirmev] 1,000 mg in 100 ml IV PREOP Gabapentin [Neurontin] 600 mg PO PREOP ONE 01/29/20 07:45 Lactated Ringers [Lr] 1,000 ml IVCONT 100 mls/hr 01/29/20 07:57 SARS COV2 PCR INHOUSE Stat 01/29/20 09:22 Gabapentin [Neurontin] 300 mg .ROUTE .STK-MED ONE 01/29/20 09:23 Acetaminophen [Ofirmev] 1,000 mg in 100 ml IV As directed 01/29/20 09:25 ECG 12 lead EKG Stat 01/29/20 09:26 EKG Documentation DIRECTED 01/29/20 09:35 Gabapentin [Neurontin] 300 mg .ROUTE .STK-MED ONE 01/29/20 09:51 dexAMETHasone Sod Phosphate/PF [Decadron] 10 mg .ROUTE .STK-MED ONE 01/29/20 09:52 Lidocaine HCl 1 % MPF [Xylocaine 1 % MPF] 5 ml .ROUTE .STK-MED ONE 01/29/20 09:53 Bupivacaine MPF 0.25 % [Sensorcaine-MPF 0.25% 10 ML] 10 ml .ROUTE .STK-MED ONE 01/29/20 09:56 ceFAZolin Sodium/Dextrose,Iso [Ancef] 2 gm in 50 ml IV PREOP 01/29/20 Breakfast NPO Diet Lactated Ringers [Lr] 1,000 ml IVCONT 999 mls/hr 01/29/20 10:06 ceFAZolin Sodium/Dextrose,Iso [Ancef] 2 gm in 50 ml .ROUTE As directed 01/29/20 10:10 EKG Documentation DIRECTED 01/29/20 10:32 Continuous pulse oximetry CONT Vital Signs Q1H Vital Signs Q5MIN HYDROmorphone HCl [Dilaudid] 0.25 mg IVPUSH Q5M PRN fentaNYL citrate/PF [Sublimaze] 25 mcg IVPUSH Q5M PRN ondansetron HCL [Zofran] 4 mg IVPUSH ONCE PRN 01/29/20 10:33 Oxygen administration Nasal Cannula 2 lpm 01/29/20 12:39 Ambulate Q4H WHILE AWAKE Compression Therapy QSHIFT Head of bed elevation DIRECTED Incentive Spirometry Q1HR WHILE AWAKE Intake and Output Q4HR Up ad sean .Continous Code Status Routine HYDROmorphone HCl [Dilaudid] 0.25 mg IVPUSH Q4H PRN Metoclopramide HCl [Reglan] 10 mg IVPUSH Q6H PRN 01/29/20 12:40 Apply Abdominal Binder TOLERATED Continuous pulse oximetry CONT Vital Signs Q4H 01/29/20 12:41 fentaNYL citrate/PF [Sublimaze] 100 mcg .ROUTE .STK-MED ONE Surgical [PTH] Routine 01/29/20 12:44 clonazePAM [KlonoPIN] 0.5 mg PO BID PRN 01/29/20 12:45 Acetaminophen [Ofirmev] 1,000 mg in 100 ml IV Q6H Lactated Ringers [Lr] 1,000 ml IVCONT 150 mls/hr 01/29/20 13:00 Famotidine/PF [Pepcid/PF] 20 mg IVPUSH BID 01/29/20 13:32 Basic Metabolic Panel Stat Hemoglobin and Hematocrit Stat 01/29/20 14:00 ondansetron HCL [Zofran] 4 mg IVPUSH Q8H 01/29/20 15:00 Buprenorphine/Naloxone 4/1 mg [Suboxone 4/1 mg] 1 film SUBLINGUAL ONCE@1500 Gabapentin [Neurontin] 300 mg PO DAILY@1500 cloNIDine HCL [Catapres] 0.2 mg PO BID@0800,1500 01/29/20 16:00 0.9 % Sodium Chloride Flush [NS Flush] 3 ml IVFLUSH QSHIFT ceFAZolin Sodium/Dextrose,Iso [Ancef] 2 gm in 50 ml IV ONCE@1600 01/29/20 21:00 Buprenorphine/Naloxone 8/2 mg [Suboxone 8/2 mg] 1 film SUBLINGUAL BID cloNIDine HCL [Catapres] 0.2 mg PO BID@0800,2100 cloNIDine HCL [Catapres] 0.3 mg PO BEDTIME 01/30/20 06:02 Basic Metabolic Panel DAILY@0600 Complete Blood Count Auto Diff DAILY@0600 01/30/20 09:00 Buprenorphine/Naloxone 4/1 mg [Suboxone 4/1 mg] 1 film SUBLINGUAL DAILY DULoxetine HCl [Cymbalta] 20 mg PO DAILY Laboratory Last Values WBC 10.1 X10*3/uL (4.8-10.8) 01/30/20 06:02 RBC 4.53 X10*6/uL (4.20-5.50) 01/30/20 06:02 Hgb 13.6 g/dl (12.0-16.0) 01/30/20 06:02 Hct 40.1 % (37-47) 01/30/20 06:02 MCV 88.5 fL (80-98) 01/30/20 06:02 MCH 30.0 pg (27.0-33.0) 01/30/20 06:02 MCHC 33.9 g/dl (31.0-35.0) 01/30/20 06:02 RDW 12.1 % (11.0-16.0) 01/30/20 06:02 Plt Count 180 X10*3/uL (160-400) 01/30/20 06:02 MPV 11.0 fL (9.4-12.3) 01/30/20 06:02 Immature Gran % (Auto) 0.3 % (0.0-0.4) 01/30/20 06:02 Neut % (Auto) 76.8 % (45-73) H 01/30/20 06:02 Lymph % (Auto) 17.3 % (20-40) L 01/30/20 06:02 [place] % (Auto) 5.5 % (2-11) 01/30/20 06:02 Eos % (Auto) 0.0 % (0-4) 01/30/20 06:02 Baso % (Auto) 0.1 % (0-2) 01/30/20 06:02 Lymph # (Auto) 1.8 X10*3/uL (1.2-4.9) 01/30/20 06:02 [place] # (Auto) 0.6 X10*3/uL (0.1-1.2) 01/30/20 06:02 Eos # (Auto) 0.0 X10*3/uL (0.0-0.4) 01/30/20 06:02 Baso # (Auto) 0.0 X10*3/uL (0.0-0.2) 01/30/20 06:02 Abs Immat Gran (auto) 0.03 X10*3/uL (0.00-0.03) 01/30/20 06:02 Absolute Neuts (auto) 7.8 X10*3/uL (2.0-8.3) 01/30/20 06:02 Absolute Nucleated RBC 0.000 X10*3/uL (0.0-0.012) 01/30/20 06:02 Nucleated RBC % (auto) 0.0 /100WBC (0.0-0.2) 01/30/20 06:02 APTT 33.7 SEC (24.1-38.0) 01/27/20 11:10 Sodium 137 mmol/L (135-145) 01/30/20 06:02 Potassium 4.5 mmol/l (3.3-5.1) 01/30/20 06:02 Chloride 106 mmol/L (96-108) 01/30/20 06:02 Carbon Dioxide 22 mmol/L (22-29) 01/30/20 06:02 Anion Gap 14 (12-20) 01/30/20 06:02 BUN 9 mg/dL (9-16) 01/30/20 06:02 Creatinine 0.68 mg/dL (0.5-1.4) 01/30/20 06:02 Estim Creat Clear Calc 126.6 01/30/20 06:02 Estimated GFR > 60 01/30/20 06:02 Random Glucose 100 mg/dL (60-115) 01/30/20 06:02 Estimat Average Glucose 100 mg/dL 01/27/20 11:10 Hemoglobin A1c % 5.1 % 01/27/20 11:10 Total Insulin 5.6 uIU/mL 01/27/20 11:10 Calcium 8.4 mg/dL (8.4-10.2) 01/30/20 06:02 Total Bilirubin 0.9 mg/dL (0.0-1.0) 01/27/20 11:10 AST 97 U/L (5-31) H 01/27/20 11:10 ALT 206 U/L (0-31) H 01/27/20 11:10 Alkaline Phosphatase 126 U/L (39-117) H 01/27/20 11:10 C-Reactive Protein 0.77 mg/dL (< or = 0.50) H 01/27/20 11:10 Total Protein 7.1 g/dL (6.5-8.0) 01/27/20 11:10 Albumin 4.5 g/dL (3.5-5.0) 01/27/20 11:10 Triglycerides 80 mg/dL 01/27/20 11:10 Cholesterol 154 mg/dL 01/27/20 11:10 LDL Cholesterol, Calc 99 mg/dl 01/27/20 11:10 HDL Cholesterol 39 mg/dL 01/27/20 11:10 TSH 0.68 mIU/mL (0.32-4.0) 01/27/20 11:10 Coronavirus (PCR) NEGATIVE (Negative) 01/29/20 07:57 Blood Type A Positive 01/27/20 11:10 Antibody Screen NEGATIVE 01/27/20 11:10 Discharge Plan Discharge Anticipated Discharge Date/Time: 01/30/20 10:58 Patient Disposition: Home, Self-Care Referrals: COMPREHENSIVE CARE AT [facility] [Other] self resumptionm of counseling services [Other] (patient to self resume her mental health counseling services with psychiatrist and thearpist) Physician,Unknown [Primary Care Provider] - Discharge Medications: Continued duloxetine [Cymbalta] 20 mg capsule,delayed release(DR/EC) 20 mg PO DAILY RF: 0 clonazepam [Klonopin] 0.5 mg tablet 0.5 mg PO BID RF: 0 pantoprazole 40 mg tablet,delayed release (DR/EC) 40 mg PO DAILY Qty: 30 RF: 2 ondansetron HCl [Zofran] 4 mg tablet 4 mg PO Q6H PRN (Reason: nausea and vomiting) Qty: 30 RF: 0 Discontinued cyanocobalamin (vitamin B-12) [Vitamin B-12] 1,000 mcg Tablet 1,000 mcg PO DAILY RF: 0 cholecalciferol (vitamin D3) [Vitamin D3] 50 mcg (2,000 unit) Capsule 50 mcg PO DAILY RF: 0 No Action sucralfate 100 mg/mL suspension 10 ml PO BID Qty: 420 RF: 2 sucralfate 1 gram tablet 1 g PO BID Qty: 60 RF: 2 buprenorphine-naloxone [Suboxone] 4-1 mg film 1 film sublingual DAILY Qty: 21 RF: 0 buprenorphine-naloxone [Suboxone] 8-2 mg film 1 film sublingual BID Qty: 42 RF: 0 Discharge Orders: Discharge Order (Routine); Ordered 01/30/20 Ordered By: Gilbert Chen Activity on Discharge: No heavy lifting Discharge Date/Time: 01/30/20 08:26 Activity Restrictions/Additional Instructions: INSTRUCTIONS You are being discharged home on bariatric diet phase 1. Continue this today and start bariatric phase 2 tomorrow morning. Follow all instructions in the bariatric hand book and call with any questions. No lifting, sexual relations, tub baths or vigorous exercise, do not restart until told to do so by Dr Chen. No alcohol, tobacco or caffeine products. Continue all home medications, except vitamins ADMITTING DIAGNOSIS: morbid obesity, opiod abuse disorder, elevated liver enzymes, bipolar disorder DISCHARGE DIAGNOSIS: same, s/p laparoscopic sleeve gastrectomy and paraesophageal hernia PAST SURGICAL HISTORY: section PROCEDURE: upper endoscopy, laparoscopic sleeve gastrectomy and paraesophageal hernia repair DISCHARGE SUMMARY: History of Present Illness: The patient is a 35 year-old woman with a BMI of 42.37 kg/m2 and associated co- morbidities as described above. The patient had extensive work-up,lost 21.9 lbs preoperatively and was electively scheduled for laparoscopic, possible open sleeve gastrectomy and gastropexy. Risks and complications of the surgery were discussed with the patient in advance, particularly the possibility of , pulmonary embolism, anastomotic leak, bleeding, bowel injury, GERD, cardiac, renal or pulmonary complications. The patient understood all the risks and wasin agreement with the surgical plan. Hospital Course: The patient underwent an uneventful laparoscopic sleeve gastrectomy with gastropexy repair of paraesophageal hernia on the day of admission. Postoperatively, the patient was transferred to the surgical floor and hemoglobin the first 8 hours after surgery was 15.4 mg/dl. The patient was on IV Acetaminophen and IV dilaudid for pain control. Patient was started on bariatric phase 1 diet POD #0. On postoperative day one, the patient was feeling well without nausea, vomiting, fevers, or tachycardia. The patient had some mild incisional pain. The abdomen was soft. Follow-up hemoglobin was 13.6 mg/dl. The white count was 10.1 with 76.8 % neutrophils, the creatinine 0.68 mg/dl was and the potassium 4.5 mmol/lt. On the morning of postoperative day one, the patient was continued on 1 ounce of water or ice every half hour. During the first day, the patient did fairly well, having some incisional pain, but able to ambulate adequately and to tolerate liquids well. Since the patient is doing well, we decided that the patient was ready to be discharged. The patient was given instructions to follow-up with me next week and to call my office for any fever over 101, persistent abdominal pain, nausea, vomiting, GERD, change in the color of the MONIQUE fluid, symptoms of DVT such as calf tenderness, or leg swelling, or pulmonary embolism such as chest pain or shortness of breath. The patient was also instructed to drink 40-60 ounces of liquids per day using the 1-ounce cups. The patient was given prescription for Tylenol for pain, Zofran prn for nausea, and pantoprazole and carafate. The patient was encouraged to ambulate and use the incentive spirometer. The patient was allowed to shower, but no baths, and encouraged to stay active at home. All of these instructions were given to the patientpersonally. All questions were answered and the patient understood all instructions, the instructions were also given to the patient in print. Visit Report Forms: Patient Portal Discharge page Care Plan Goals: weight loss Health Concerns: morbid obesity Plan of Treatment: see discharge orders
== END 2020-01-30 08:26 | disposition home or self-care (01) | DRG 403 ==
LOC: HO.SSSA 09:17 → HO.S3 12:16
PROVIDERS: Physician Assistant; Admitting Provider Surgery; Visit Provider Surgery
PROC: 0DB64Z3 Excision of Stomach, Percutaneous Endoscopic Approach, Vertical (ICD-10-PCS; CPT 43845; principal; 2020-01-29 09:20)
DX: E66.01 Morbid (severe) obesity due to excess calories (principal); F11.20 Opioid dependence, uncomplicated; K44.0 Diaphragmatic hernia with obstruction, without gangrene; F31.81 Bipolar II disorder; F17.210 Nicotine dependence, cigarettes, uncomplicated; Z71.6 Tobacco abuse counseling; Z23 Encounter for immunization; Z68.38 Body mass index [BMI] 38.0-38.9, adult; Z20.828 Contact with and (suspected) exposure to other viral communicable diseases; K80.20 Calculus of gallbladder without cholecystitis without obstruction; Z88.2 Allergy status to sulfonamides; Z79.899 Other long term (current) drug therapy
CPT/HCPCS: 36415; 80048; 80053; 80061; 83036; 83525; 84443; 85014; 85018; 85025; 85730; 86140; 86850; 86900; 86901; 87635; 88307; 88342; 93005; 99024; J0131; J0330; J0573; J0574; J0690; J1100; J1170; J2250; J2370; J2405; J3010

== ENCOUNTER → 2020-02-05 09:54 | Outpatient (BNVA) | payer MEDICAID, SELFPAY | PROVIDERS: Visit Provider Nurse Practitioner Psychiatric/Mental Health | DX: F11.99 Opioid use, unspecified with unspecified opioid-induced disorder (principal); F31.81 Bipolar II disorder; Z88.2 Allergy status to sulfonamides; Z88.8 Allergy status to other drugs, medicaments and biological substances | CPT/HCPCS: 99212 ==

== ENCOUNTER → 2020-02-06 07:35 | Outpatient (BNVA) | payer MEDICAID, SELFPAY | PROVIDERS: Visit Provider Surgery | DX: E66.9 Obesity, unspecified (principal); Z68.37 Body mass index [BMI] 37.0-37.9, adult; Z98.84 Bariatric surgery status | CPT/HCPCS: 99212 ==

== ENCOUNTER → 2020-03-04 09:10 | Outpatient (BNVA) | payer OTHER, SELFPAY | PROVIDERS: Visit Provider Nurse Practitioner Psychiatric/Mental Health | DX: F11.99 Opioid use, unspecified with unspecified opioid-induced disorder (principal) | CPT/HCPCS: 80305; 99212 ==

== ENCOUNTER → 2020-03-08 08:00 | Outpatient (BNVA) | payer OTHER, SELFPAY | PROVIDERS: Visit Provider Surgery | DX: E66.9 Obesity, unspecified (principal); Z68.37 Body mass index [BMI] 37.0-37.9, adult | CPT/HCPCS: 99212 ==

== ENCOUNTER → 2020-03-25 09:15 | Outpatient (BNVA) | payer OTHER, SELFPAY | PROVIDERS: Visit Provider Nurse Practitioner Psychiatric/Mental Health | DX: Z76.89 Persons encountering health services in other specified circumstances (principal) ==

== ENCOUNTER → 2020-04-09 08:22 | Outpatient (BNVA) | payer OTHER, SELFPAY | PROVIDERS: PCP Family Medicine; Visit Provider Surgery | DX: M79.3 Panniculitis, unspecified (principal); E66.9 Obesity, unspecified; Z68.36 Body mass index [BMI] 36.0-36.9, adult | CPT/HCPCS: 99212 ==

== ENCOUNTER → 2020-04-15 08:56 | Outpatient (BNVA) | payer OTHER, SELFPAY | PROVIDERS: Visit Provider Nurse Practitioner Psychiatric/Mental Health | DX: F11.21 Opioid dependence, in remission (principal) | CPT/HCPCS: 80305; 81025; 96372; 99212; Q9992 ==

== ENCOUNTER → 2020-04-22 09:15 | Outpatient (BNVA) | payer OTHER, SELFPAY | PROVIDERS: Visit Provider Nurse Practitioner Psychiatric/Mental Health ==

== ENCOUNTER 2020-05-12 10:07 | Outpatient (REF) | payer OTHER, SELFPAY ==
[2020-05-13 12:47] LABS: C. trachomatis RNA TMA NOT DETECTED (NOT DETECTED); N. gonorrhoeae RNA TMA NOT DETECTED (NOT DETECTED)
== END 2020-05-12 10:08 | disposition home or self-care (01) ==
LOC: HO.LAB 10:07
PROVIDERS: PCP Family Medicine; Visit Provider Advanced Practice Midwife
DX: N92.1 Excessive and frequent menstruation with irregular cycle (principal); Z30.431 Encounter for routine checking of intrauterine contraceptive device; Z87.891 Personal history of nicotine dependence
CPT/HCPCS: 36415; 81025; 87491; 87591

== ENCOUNTER → 2020-05-13 09:03 | Outpatient (BNVA) | payer OTHER, SELFPAY | PROVIDERS: Visit Provider Nurse Practitioner Psychiatric/Mental Health | DX: F11.21 Opioid dependence, in remission (principal) | CPT/HCPCS: 80305; 81025; 96372; 99212; Q9992 ==

== ENCOUNTER → 2020-05-19 08:20 | Outpatient (BNVA) | payer OTHER, SELFPAY | PROVIDERS: Visit Provider Surgery ==

== ENCOUNTER 2020-06-03 09:45 | Outpatient (REF) | payer OTHER, SELFPAY ==
[2020-06-08 07:32] LABS: HPV mRNA E6/E7 rflx Not Detected (Not Detected)
== END 2020-06-03 09:46 | disposition home or self-care (01) ==
LOC: HO.LAB 09:45
PROVIDERS: Visit Provider Advanced Practice Midwife
DX: Z01.419 Encounter for gynecological examination (general) (routine) without abnormal findings (principal); Z11.51 Encounter for screening for human papillomavirus (HPV)
CPT/HCPCS: 36415; 87624; 88142

== ENCOUNTER → 2020-06-10 09:00 | Outpatient (BNVA) | payer OTHER, SELFPAY | PROVIDERS: Visit Provider Nurse Practitioner Psychiatric/Mental Health | DX: F11.21 Opioid dependence, in remission (principal); Z51.81 Encounter for therapeutic drug level monitoring; Z79.899 Other long term (current) drug therapy; Z87.891 Personal history of nicotine dependence | CPT/HCPCS: 80305; 81025; 96372; 99212; Q9991 ==

== ENCOUNTER → 2020-06-16 08:07 | Outpatient (BNVA) | payer OTHER, SELFPAY | PROVIDERS: Visit Provider Surgery ==

== ENCOUNTER 2020-06-24 09:54 | Outpatient (REF) | payer OTHER, SELFPAY ==
--- NOTE | ~2020-06-24 | XR_ITS ---
EXAMINATION: XR WRIST, RIGHT CLINICAL INFORMATION: Right wrist pain. COMPARISON: None TECHNIQUE: Four views of the right wrist. FINDINGS: There is no evidence of acute fracture or dislocation of the right wrist. Right wrist joint spaces are maintained. Small cyst is seen within the capitate. There is negative ulnar variance present. XR/XR wrist RT w scaphoid IMPRESSION: No evidence of acute fracture or dislocation of the right wrist. Negative ulnar variance.
[2020-06-24 11:27] LABS: Alanine Aminotransferase 16 U/L (0-31); Albumin Level 4.4 g/dL (3.5-5.0); Alkaline Phosphatase 114 U/L (39-117); Aspartate Amino Transferase 21 U/L (5-31); Bilirubin Direct 0.3 mg/dL (0.0-0.5); Bilirubin Total 0.6 mg/dL (0.0-1.0); Total Protein 6.7 g/dL (6.5-8.0)
== END 2020-06-24 09:55 | disposition home or self-care (01) ==
LOC: HO.XRAY 09:54
PROVIDERS: Absent Provider Nurse Practitioner Psychiatric/Mental Health; PCP Family Medicine; Visit Provider Hospitalist
DX: M25.531 Pain in right wrist (principal); Z79.899 Other long term (current) drug therapy
CPT/HCPCS: 36415; 73110; 80076

== ENCOUNTER → 2020-07-08 10:27 | Outpatient (BNVA) | payer OTHER, SELFPAY | PROVIDERS: Visit Provider Nurse Practitioner Psychiatric/Mental Health | DX: F11.21 Opioid dependence, in remission (principal) | CPT/HCPCS: 80305; 81025; 96372; 99212; Q9991 ==

== ENCOUNTER 2020-07-29 10:01 | Outpatient (REF) | payer OTHER, SELFPAY ==
[2020-07-29 16:24] LABS: CT PCR NOT DETECTED (Not Detect.); NG PCR NOT DETECTED (Not Detect.)
== END 2020-07-29 10:02 | disposition home or self-care (01) ==
LOC: HO.LAB 10:01
PROVIDERS: Obstetrics & Gynecology; PCP Family Medicine; Visit Provider Advanced Practice Midwife
DX: N92.0 Excessive and frequent menstruation with regular cycle (principal); N64.4 Mastodynia
CPT/HCPCS: 87491; 87591; 99212

== ENCOUNTER → 2020-08-05 09:32 | Outpatient (BNVA) | payer OTHER, SELFPAY | PROVIDERS: PCP Family Medicine; Visit Provider Nurse Practitioner Psychiatric/Mental Health | DX: F11.21 Opioid dependence, in remission (principal) | CPT/HCPCS: 80305; 81025; 96372; 99212; Q9991 ==

== ENCOUNTER → 2020-08-06 08:25 | Outpatient (BNVA) | payer OTHER, SELFPAY | PROVIDERS: Visit Provider Surgery ==

== ENCOUNTER 2020-08-11 14:25 | Outpatient (REF) | payer OTHER, SELFPAY ==
--- NOTE | ~2020-08-11 | US_ITS ---
EXAMINATION: ULTRASOUND PELVIS COMPLETE CLINICAL INFORMATION: Excessive and frequent menstruation COMPARISON: None TECHNIQUE: Transabdominal and transvaginal imaging of pelvis is performed. FINDINGS: The uterus is anteverted and anteflexed measuring 9.0 cm in length 4.4 cm in AP and 6.2 cm in transverse dimension. The uterus is homogeneous echotexture. There is a well located IUD within the endometrial canal. The cervix appears unremarkable. Right ovary measures 3.1 x 1.6 x 1.9 cm and volume 4.9 mL. It appears unremarkable. Left ovary measures 3.6 x 3.4 x 1.8 cm and volume is likely a small daughter cyst within. 11.5 mL. There is an irregular shaped anechoic cyst measuring 3.3 x 1.1 x 3.1 cm. There is no free fluid in cul-de-sac. US/US pelvic complete IMPRESSION: Small anechoic cysts left ovary with a small daughter cyst within. The right ovary and the uterus is unremarkable. There is no free fluid cul-de-sac.
--- NOTE | ~2020-08-11 | US_ITS ---
EXAMINATION: ULTRASOUND PELVIS COMPLETE CLINICAL INFORMATION: Excessive and frequent menstruation COMPARISON: None TECHNIQUE: Transabdominal and transvaginal imaging of pelvis is performed. FINDINGS: The uterus is anteverted and anteflexed measuring 9.0 cm in length 4.4 cm in AP and 6.2 cm in transverse dimension. The uterus is homogeneous echotexture. There is a well located IUD within the endometrial canal. The cervix appears unremarkable. Right ovary measures 3.1 x 1.6 x 1.9 cm and volume 4.9 mL. It appears unremarkable. Left ovary measures 3.6 x 3.4 x 1.8 cm and volume is likely a small daughter cyst within. 11.5 mL. There is an irregular shaped anechoic cyst measuring 3.3 x 1.1 x 3.1 cm. There is no free fluid in cul-de-sac. US/US transvaginal IMPRESSION: Small anechoic cysts left ovary with a small daughter cyst within. The right ovary and the uterus is unremarkable. There is no free fluid cul-de-sac.
== END 2020-08-11 14:26 | disposition home or self-care (01) ==
LOC: HO.US 14:25
PROVIDERS: Visit Provider Obstetrics & Gynecology
DX: N92.0 Excessive and frequent menstruation with regular cycle (principal)
CPT/HCPCS: 76830; 76856

== ENCOUNTER → 2020-09-02 09:02 | Outpatient (BNVA) | payer OTHER, SELFPAY | PROVIDERS: Visit Provider Nurse Practitioner Psychiatric/Mental Health | DX: F11.21 Opioid dependence, in remission (principal) | CPT/HCPCS: 80305; 81025; 96372; 99212 ==

== ENCOUNTER → 2020-10-05 14:03 | Outpatient (BNVA) | payer OTHER, SELFPAY | PROVIDERS: Visit Provider Nurse Practitioner Psychiatric/Mental Health | DX: Z51.81 Encounter for therapeutic drug level monitoring (principal); Z79.899 Other long term (current) drug therapy | CPT/HCPCS: 80305; 81025; 96372; 99211; Q9991 ==

== ENCOUNTER → 2020-10-08 07:37 | Outpatient (BNVA) | payer OTHER, SELFPAY | PROVIDERS: Visit Provider Surgery ==

== ENCOUNTER → 2020-11-02 10:52 | Outpatient (BNVA) | payer OTHER, SELFPAY | PROVIDERS: Visit Provider Internal Medicine | DX: F11.21 Opioid dependence, in remission (principal) | CPT/HCPCS: 80305; 96372; 99211; Q9991 ==

== ENCOUNTER → 2020-11-04 11:19 | Outpatient (BNVA) | payer OTHER, SELFPAY | PROVIDERS: Visit Provider Nurse Practitioner Psychiatric/Mental Health ==

== ENCOUNTER → 2020-12-02 09:20 | Outpatient (BNVA) | payer OTHER, SELFPAY | DX: F11.21 Opioid dependence, in remission (principal) | CPT/HCPCS: 80305; 81025; 96372; 99212; Q9991 ==

== ENCOUNTER → 2020-12-22 08:23 | Outpatient (BNVA) | payer OTHER, SELFPAY | PROVIDERS: Referring Provider Family Medicine; Visit Provider Physician Assistant Surgical | DX: Z98.84 Bariatric surgery status (principal) | CPT/HCPCS: 99212 ==

== ENCOUNTER 2020-12-23 07:06 | Outpatient (REF) | payer OTHER, SELFPAY ==
[2020-12-23 07:49] LABS: MANUAL DIFF FLAG NO
[2020-12-23 07:57] LABS: Basophils Percent Auto 0.6 % (0-2); Eosinophils Absolute Auto 0.2 X10*3/uL (0.0-0.4); Eosinophils Percent Auto 2.9 % (0-4); Hematocrit 43.8 % (37-47); Hemoglobin 14.6 g/dl (12.0-16.0); Imm Gran Abs Auto 0.01 X10*3/uL (0.00-0.03); Imm Gran Pct Auto 0.2 % (0.0-0.4); Lymphocytes Percent Auto 37.8 % (20-40); Mean Corpuscular HGB Conc 33.3 g/dl (31.0-35.0); Mean Corpuscular Hemoglobin 30.4 pg (27.0-33.0); Mean Corpuscular Volume 91.3 fL (80-98); Mean Platelet Volume 10.2 fL (9.4-12.3); Monocytes Absolute Auto 0.3 X10*3/uL (0.1-1.2); Monocytes Percent Auto 6.6 % (2-11); Neutrophils Absolute Auto 2.7 X10*3/uL (2.0-8.3); Neutrophils Percent Auto 51.9 % (45-73); Platelet Count 224 X10*3/uL (160-400); Red Cell Distribution Width 12.5 % (11.0-16.0); White Blood Count 5.2 X10*3/uL (4.8-10.8)
[2020-12-23 08:15] LABS: Alanine Aminotransferase 15 U/L (0-31); Albumin Level 4.4 g/dL (3.5-5.0); Alkaline Phosphatase 100 U/L (39-117); Anion Gap 11 (12-20); Aspartate Amino Transferase 23 U/L (5-31); Bilirubin Total 0.7 mg/dL (0.0-1.0); Blood Urea Nitrogen 18 mg/dL (9-16); C Reactive Protein 0.23 mg/dL (< or = 0.50); Calcium 10.2 mg/dL (8.4-10.2); Carbon Dioxide 29 mmol/L (22-29); Chloride 104 mmol/L (96-108); Cholesterol 116 mg/dL; Estimated Glomerular Filt Rate > 60; Glucose Random 96 mg/dL (60-115); HDL Cholesterol 43 mg/dL; Iron 83 mcg/dL (30-160); LDL Cholesterol Calculated 62 mg/dl; Percent Iron Saturation 31 % (15-50); Potassium 4.5 mmol/L (3.3-5.1); Sodium 139 mmol/L (135-145); Total Iron Binding Capacity 264 mcg/dL (228-428); Total Protein 6.8 g/dL (6.5-8.0); Triglycerides 58 mg/dL; Unsaturated Iron Binding 181 ug/dL
[2020-12-23 08:23] LABS: Estimated Average Glucose 108 mg/dL; Hemoglobin A1c % 5.4 %
[2020-12-23 08:41] LABS: Ferritin 213 ng/mL (10-122); TSH reflex Free T4 1.63 uIU/mL (0.32-4.0); Vitamin D 25-OH Total 45.4 ng/mL (>30)
[2020-12-23 08:47] LABS: Folate 17.2 ng/mL (> or = 4.0); Vitamin B12 703 pg/mL (200-900)
[2020-12-25 05:17] LABS: Insulin Level Total 2.1 uIU/mL
[2020-12-28 08:47] LABS: Calcium (PTHI) 9.8 mg/dL (8.6-10.2); PTHI 46 pg/mL (14-64)
[2020-12-28 15:42] LABS: Zinc 93 mcg/dL (60-130)
[2020-12-29 10:26] LABS: Vitamin B1 30 nmol/L (8-30)
[2020-12-29 23:22] LABS: Vitamin A 32 mcg/dL (38-98)
== END 2020-12-23 07:07 | disposition home or self-care (01) ==
LOC: HO.LAB 07:06
PROVIDERS: PCP Family Medicine; Visit Provider Physician Assistant Surgical
DX: Z98.84 Bariatric surgery status (principal)
CPT/HCPCS: 36415; 80053; 80061; 82306; 82607; 82728; 82746; 83036; 83525; 83540; 83970; 84425; 84443; 84590; 84630; 85025; 86140

== ENCOUNTER → 2020-12-30 09:31 | Outpatient (BNVA) | payer OTHER, SELFPAY | DX: Z51.81 Encounter for therapeutic drug level monitoring (principal); F11.21 Opioid dependence, in remission; Z79.899 Other long term (current) drug therapy | CPT/HCPCS: 80305; 81025; 96372; 99212; Q9991 ==

== ENCOUNTER 2020-12-31 18:17 | Outpatient (REF) | payer OTHER, SELFPAY ==
[2020-12-31 19:09] LABS: Influenza A PCR NEGATIVE (Negative); Influenza B PCR NEGATIVE (Negative); Resp Syncy Virus RNA Qual PCR NEGATIVE (Negative); SARS COV2 PCR INHOUSE NEGATIVE (Negative)
== END 2020-12-31 18:18 | disposition home or self-care (01) ==
LOC: HO.LNP 18:17
PROVIDERS: Visit Provider Family Medicine
DX: Z20.822 Contact with and (suspected) exposure to COVID-19 (principal); B34.9 Viral infection, unspecified
CPT/HCPCS: 0241U

== ENCOUNTER 2021-01-24 08:07 | Outpatient (REF) | payer OTHER, SELFPAY ==
[2021-01-28 00:01] LABS: Vitamin A 29 mcg/dL (38-98)
== END 2021-01-24 08:08 | disposition home or self-care (01) ==
LOC: HO.LAB 08:07
PROVIDERS: PCP Family Medicine; Visit Provider Physician Assistant Surgical
DX: E50.9 Vitamin A deficiency, unspecified (principal); E66.3 Overweight
CPT/HCPCS: 36415; 84590

== ENCOUNTER → 2021-01-27 09:06 | Outpatient (BNVA) | payer OTHER, SELFPAY | PROVIDERS: Visit Provider Nurse Practitioner Psychiatric/Mental Health | DX: F11.21 Opioid dependence, in remission (principal) | CPT/HCPCS: 80305; 96372; 99212; Q9991 ==

== ENCOUNTER 2021-02-01 11:06 | Outpatient (REF) | payer OTHER, SELFPAY ==
[2021-02-02 10:08] LABS: CT PCR NOT DETECTED (Not Detect.); NG PCR NOT DETECTED (Not Detect.)
== END 2021-02-01 11:07 | disposition home or self-care (01) ==
LOC: HO.LAB 11:06
PROVIDERS: Visit Provider Advanced Practice Midwife
DX: Z30.433 Encounter for removal and reinsertion of intrauterine contraceptive device (principal); Z20.2 Contact with and (suspected) exposure to infections with a predominantly sexual mode of transmission
CPT/HCPCS: 58300; 58301; 81025; 87491; 87591

== ENCOUNTER → 2021-02-08 10:48 | Outpatient (BNVA) | payer OTHER, SELFPAY | PROVIDERS: Visit Provider Dietitian, Registered | DX: E66.9 Obesity, unspecified (principal) | CPT/HCPCS: 97803 ==

== ENCOUNTER → 2021-03-03 16:58 | Outpatient (BNVA) | payer OTHER, SELFPAY | PROVIDERS: Visit Provider Nurse Practitioner Psychiatric/Mental Health ==

== ENCOUNTER → 2021-03-10 08:01 | Outpatient (BNVA) | payer OTHER, SELFPAY | PROVIDERS: PCP Family Medicine; Referring Provider Surgery; Visit Provider Dietitian, Registered | DX: E66.9 Obesity, unspecified (principal); Z68.24 Body mass index [BMI] 24.0-24.9, adult | CPT/HCPCS: 97803 ==

== ENCOUNTER → 2021-03-17 10:05 | Outpatient (BNVA) | payer OTHER, SELFPAY | PROVIDERS: Visit Provider Nurse Practitioner Psychiatric/Mental Health | DX: Z51.81 Encounter for therapeutic drug level monitoring (principal); F11.20 Opioid dependence, uncomplicated | CPT/HCPCS: 99212 ==

== ENCOUNTER → 2021-03-31 16:18 | Outpatient (BNVA) | payer OTHER, SELFPAY | PROVIDERS: Visit Provider Nurse Practitioner Psychiatric/Mental Health ==

== ENCOUNTER → 2021-04-05 08:15 | Outpatient (BNVA) | payer OTHER, SELFPAY | PROVIDERS: Visit Provider Advanced Practice Midwife | DX: Z30.431 Encounter for routine checking of intrauterine contraceptive device (principal) | CPT/HCPCS: 99212 ==

== ENCOUNTER 2021-04-08 10:20 | Outpatient (REF) | payer OTHER, SELFPAY ==
--- NOTE | ~2021-04-08 | XR_ITS ---
EXAMINATION: XR SACRUM AND COCCYX CLINICAL INFORMATION: Sacrococcygeal disorder COMPARISON: None TECHNIQUE: 2 views of the sacrum and 2 views of the coccyx were obtained. FINDINGS: Bone alignment is normal. No fracture or dislocation is seen. The sacroiliac joints are normal. There is an IUD in the pelvis. XR/XR sacrum coccyx min 2V IMPRESSION: Unremarkable exam.
[2021-04-08 10:53] LABS: Alanine Aminotransferase 10 U/L (0-31); Albumin Level 4.3 g/dL (3.5-5.0); Alkaline Phosphatase 80 U/L (39-117); Aspartate Amino Transferase 15 U/L (5-31); Bilirubin Direct 0.4 mg/dL (0.0-0.5); Bilirubin Total 0.7 mg/dL (0.0-1.0); Total Protein 6.7 g/dL (6.5-8.0)
[2021-04-08 11:13] LABS: TSH reflex Free T4 1.28 uIU/mL (0.32-4.0)
== END 2021-04-08 10:21 | disposition home or self-care (01) ==
LOC: HO.LAB 10:20
PROVIDERS: PCP Family Medicine; Visit Provider Hospitalist
DX: Z00.00 Encounter for general adult medical examination without abnormal findings (principal); M53.3 Sacrococcygeal disorders, not elsewhere classified; R79.89 Other specified abnormal findings of blood chemistry; Z98.890 Other specified postprocedural states
CPT/HCPCS: 36415; 72220; 80076; 84443

== ENCOUNTER → 2021-04-26 10:21 | Outpatient (BNVA) | payer OTHER, SELFPAY | PROVIDERS: PCP Family Medicine; Referring Provider Family Medicine; Visit Provider Physician Assistant Surgical | DX: Z98.84 Bariatric surgery status (principal) | CPT/HCPCS: 99212 ==

== ENCOUNTER → 2021-05-10 09:23 | Outpatient (BNVA) | payer OTHER, SELFPAY | PROVIDERS: PCP Family Medicine; Visit Provider Nurse Practitioner Family | DX: M53.3 Sacrococcygeal disorders, not elsewhere classified (principal) | CPT/HCPCS: 99202 ==

== ENCOUNTER → 2021-05-19 16:12 | Outpatient (BNVA) | payer OTHER, SELFPAY | PROVIDERS: PCP Family Medicine; Visit Provider Nurse Practitioner Psychiatric/Mental Health ==

== ENCOUNTER 2021-05-19 19:53 | Emergency (ER) | payer OTHER, SELFPAY ==
[2021-05-19 20:08] VITALS: BP 125/94; PULSE 82; RESP 17; TEMP 36.6; O2SAT 97; BMI 22.6
--- NOTE | 2021-05-19 20:26 | ED_ITS ---
HPI - Psych General Chief Complaint: Psychiatric Symptoms Stated Complaint: crisis Time Seen by Provider: 05/19/21 20:18 Source: patient Mode of arrival: ambulatory Limitations: no limitations History of Present Illness HPI Narrative: 36-year-old female with a longstanding history of bipolar disease not currently on any medications here with reports of feeling like she is having a bipolar episodes since Sunday, feeling depressed and suicidal with no plan. Patient tells me she spoke to Carlotta Gonzalez this morning and the plan was to start her on Latuda. She is waiting for prior authorization from her insurance to start this. She denies any substance use. No physical complaints Related Data Home Medications Medication Instructions Recorded Confirmed clonazepam 1 mg tablet 1 mg PO BID 05/19/21 05/19/21 clotrimazole 1 % topical cream 1 appl TOPICAL BID PRN 05/19/21 05/19/21 (Antifungal (clotrimazole)) cyclosporine 0.05 % eye drops in a 1 drp OPHTHALMIC (EYE) BID 05/19/21 05/19/21 dropperette (Restasis) spironolactone 100 mg tablet 1 tab PO DAILY PRN 05/19/21 05/19/21 tretinoin 0.025 % topical cream 1 appl TOPICAL BEDTIME 05/19/21 05/19/21 Previous Rx's Medication Instructions Recorded gabapentin 300 mg capsule 300 mg PO TID #90 cap 02/16/21 docusate sodium 100 mg capsule 100 mg PO BID #60 cap 02/17/21 clonidine HCl 0.2 mg tablet 0.2 mg PO BID 30 Days #60 tab 03/10/21 clonidine HCl 0.3 mg tablet 0.3 mg PO BEDTIME 30 Days #30 tab 03/10/21 buprenorphine 8 mg-naloxone 2 mg 1 film SUBLINGUAL DAILY 30 Days 04/21/21 sublingual film (Suboxone) #30 ea Donut pillow #1 ea 05/10/21 lurasidone 20 mg tablet (Latuda) 20 mg PO DAILY #30 tab 05/19/21 Allergies Allergy/AdvReac Type Severity Reaction Status Date / Time hydrocodone [From Vicodin] Allergy Intermediate hives Verified 05/19/21 20:07 clavulanic acid Allergy Mild Diarrhea Verified 05/19/21 20:07 [From Augmentin] Sulfa (Sulfonamide AdvReac Intermediate Itching Verified 05/19/21 20:07 Antibiotics) [SULFA(SULFONAMIDE ANTIBIOTICS)] sumatriptan [From IMITREX] AdvReac Mild Vomiting Verified 05/19/21 20:07 Review of Systems Review of Systems: Yes all other systems are reviewed and are negative Constitutional: Constitutional: Reports no additional constitutional complaints, Denies body ache(s), Denies chills, Denies fever(s), Denies headache(s) and Denies weakness Eyes: Eyes: Reports no additional eye complaints and Denies change in vision ENT: Reports system reviewed and no additional complaints, except as documented, Denies dizziness, Denies headache(s), Denies nasal congestion, Denies nasal discharge and Denies neck pain Cardiovascular: Cardiovascular: Reports no additional cardiovascular complaints, Denies chest pain, Denies leg edema and Denies dyspnea Respiratory: Respiratory: Reports no additional respiratory complaints, Denies cough and Denies dyspnea Gastrointestinal: Gastrointestinal: Reports no additional gastrointestinal complaints, Denies abdominal pain, Denies diarrhea, Denies nausea and Denies vomiting Genitourinary: Genitourinary: Reports no additional female genitourinary complaints and Denies urinary incontinence Musculoskeletal: Musculoskeletal: Reports no additional musculoskeletal complaints, Denies back pain, Denies arthralgias, Denies joint swelling, Denies neck pain, Denies numbness and Denies tingling Integumentary/Breasts: Skin/Breast: Reports system reviewed and no additional complaints, except as docu and Denies rash Neurologic: Reports system reviewed and no additional complaints, except as documented, Denies Abnormal speech present, Denies dizziness, Denies headache(s), Denies numbness, Denies tingling and Denies weakness Psychiatric: Psychiatric: Denies anxiety, Reports depression, Denies homicidal ideation and Reports suicidal ideation [facility] Past Medical History Attestation statement: The following information was validated with the patient. Source: old records reviewed and nursing notes reviewed Medical History Anxiety Asthma Bipolar 2 disorder Cholelithiasis Depression Diaphragmatic hernia Opioid dependence, uncomplicated Opioid use disorder PTSD (post-traumatic stress disorder) Steatosis, liver Surgical History History of sleeve gastrectomy Hx of bilateral breast reduction surgery Hx of section Hx of nasal septoplasty Obesity Family History Family History Father No problems noted. Mother No problems noted. Social History Social History Are you a primary child care counselor to a significant other at home: No Do you presently have visiting nurse or other home services: No Alcohol intake: former Patient Tobacco Use Status: Former Tobacco user Cigarette Packs Per Day: 0.5 Cigarettes Per Day: 10.0 Years Smoked: 20 Substance Use Type: Heroin Advance Directives: No Advance Directives Information Provided: Yes Patient : No service: No Current occupational status: unemployed Physical Exam Vital Signs: Vital Signs: Last Vital Signs Temp 97.9 F 05/19/21 20:08 Pulse 82 05/19/21 20:08 Resp 17 05/19/21 20:08 BP 125/94 H 05/19/21 20:08 Pulse Ox 97 05/19/21 20:08 BMI result Body Mass Index 22.6 Const: General: cooperative, healthy appearing, comfortable and no acute distress Orientation/consciousness: patient oriented x3 Limitations: no limitations HENMT: Head: Yes normal to inspection Ears: hearing grossly normal bilaterally General nose exam: Normal external nose present Face and sinus: Yes normal facial exam Mouth: Normal oral and palatal mucosa present Throat: Yes posterior oropharynx normal Eyes: General: appearance normal, both eyes and all related structures Pupils: Equal, round and reactive pupils present Neck: Neck: Yes normal visual inspection Chest: Chest palpation & inspection: normal inspection of the chest Resp: Effort & Inspection: normal respiratory effort Auscultation: clear to auscultation bilaterally Cardio: Rate: regular rate Rhythm: regular rhythm Peripheral pulses: Peripheral pulses 2+ throughout GI: Inspection: Yes normal to inspection Palpation (GI): Soft to palpation and nontender Auscultation: normal bowel sounds Back/Spine/Pelvis: Thoracic/Lumbar Spine: thoracic and lumbar spine normal to inspection Skin: General skin exam: no rashes or lesions noted Neuro: General: patient oriented x3, no focal motor deficits and normal sensation to monofilament Cranial nerves: Yes CN's II-XII intact bilaterally and Yes Equal, round and reactive pupils present Cognition (Neuro): normal cognition Speech: No Abnormal speech present Gait exam (Neuro): Normal gait present Motor exam (neuro): 5/5 motor strength present throughout Extrem: General: Yes normal to inspection Course Course Course Narrative: 36-year-old female here with reports of feeling like she is having a bipolar episode since Sunday, depression and suicidal thoughts with no plan No concern for acute ingestion or trauma. -After I spoke to the patient she wanted to leave. Signed section 12 until crisis eval and collateral information gathered. Will need labs, drug screen, COVID screen [id number]-patient seen by care team (patty). Patient is denying suicidal thoughts. She was recommended today by the psychiatric nurse practitioner to start Latuda. She is waiting for prior authorization from her insurance to initiate this. She has a appointment with a psychiatrist on June 01. Patient is not interested in partial hospitalization or inpatient care. She would like to go home to follow-up with her outpatient providers. I spoke to the patient and she denies suicidal thoughts. Reviewed worrisome signs and symptoms of when to return to the emergency department. Comfortable discharge home. MDM - Psych Medical Records Attestation: I reviewed the patient's medical records. Lab Data Attestation: I reviewed the patient's lab results. Result diagrams: 05/19/21 21:07 05/19/21 21:07 Labs: Lab Results 05/19/21 05/19/21 05/19/21 Range/Units 21:07 21:07 21:07 WBC 6.5 (4.8-10.8) X10*3/uL RBC 4.87 (4.20-5.50) X10*6/uL Hgb 14.8 (12.0-16.0) g/dl Hct 43.0 (37.0-47.0) % MCV 88.3 (80.0-98.0) fL MCH 30.4 (27.0-33.0) pg MCHC 34.4 (31.0-35.0) g/dl RDW 11.9 (11.0-16.0) % Plt Count 230 (160-400) X10*3/uL MPV 9.6 (9.4-12.3) fL Immature Gran % (Auto) 0.3 (0.0-0.4) % Neut % (Auto) 41.3 L (45-73) % Lymph % (Auto) 49.7 H (20-40) % [place] % (Auto) 6.0 (2-11) % Eos % (Auto) 2.2 (0-4) % Baso % (Auto) 0.5 (0-2) % Lymph # (Auto) 3.2 (1.2-4.9) X10*3/uL [place] # (Auto) 0.4 (0.1-1.2) X10*3/uL Eos # (Auto) 0.1 (0.0-0.4) X10*3/uL Baso # (Auto) 0.0 (0.0-0.2) X10*3/uL Abs Immat Gran (auto) 0.02 (0.00-0.03) X10*3/uL Absolute Neuts (auto) 2.7 (2.0-8.3) x10*3/uL Absolute Nucleated RBC 0.000 (0.0-0.012) X10*3/uL Nucleated RBC % (auto) 0.0 (0.0-0.2) /100WBC Sodium 140 (135-145) mmol/L Potassium 4.8 (3.3-5.1) mmol/L Chloride 105 (96-108) mmol/L Carbon Dioxide 26 (22-29) mmol/L Anion Gap 14 (12-20) BUN 20 H (9-16) mg/dL Creatinine 0.78 (0.5-1.4) mg/dL Estim Creat Clear Calc 77.3 Estimated GFR > 60 Random Glucose 104 (60-115) mg/dL Calcium 9.7 (8.4-10.2) mg/dL Total Bilirubin 0.7 (0.0-1.0) mg/dL Direct Bilirubin 0.3 (0.0-0.5) mg/dL AST 19 (5-31) U/L ALT 9 (0-31) U/L Alkaline Phosphatase 85 (39-117) U/L Total Protein 7.1 (6.5-8.0) g/dL Albumin 4.5 (3.5-5.0) g/dL Urine Color Urine Appearance Urine pH (5.0-8.0) Ur Specific [place] (1.005-1.025) Urine Protein (NEG-TRACE) MG/DL Urine Glucose (UA) (NEG) MG/DL Urine Ketones (NEG) MG/DL Urine Blood (NEG) Urine Nitrite (NEG) Ur Leukocyte Esterase (NEG) Urine RBC (0) /HPF Urine WBC (0-4) /HPF Ur Squamous Epith Cells /LPF Calcium Oxalate Crystal /LPF Urine Bacteria /LPF Urine Mucus /LPF Urine Test (NEGATIVE) Urine Opiates Screen (Not Detect) Urine Fentanyl Screen (Not Detect) Ur Barbiturates Screen (Not Detect) Ur Phencyclidine Scrn (Not Detect) Ur Amphetamines Screen (Not Detect) U Benzodiazepines Scrn (Not Detect) Urine Cocaine Screen (Not Detect) U Marijuana (THC) Screen (Not Detect) COVID-19 (NESSA) Negative (Negative) COVID-19 Clin Com See Note 05/19/21 05/19/21 05/19/21 Range/Units 21:15 21:15 21:15 WBC (4.8-10.8) X10*3/uL RBC (4.20-5.50) X10*6/uL Hgb (12.0-16.0) g/dl Hct (37.0-47.0) % MCV (80.0-98.0) fL MCH (27.0-33.0) pg MCHC (31.0-35.0) g/dl RDW (11.0-16.0) % Plt Count (160-400) X10*3/uL MPV (9.4-12.3) fL Immature Gran % (Auto) (0.0-0.4) % Neut % (Auto) (45-73) % Lymph % (Auto) (20-40) % [place] % (Auto) (2-11) % Eos % (Auto) (0-4) % Baso % (Auto) (0-2) % Lymph # (Auto) (1.2-4.9) X10*3/uL [place] # (Auto) (0.1-1.2) X10*3/uL Eos # (Auto) (0.0-0.4) X10*3/uL Baso # (Auto) (0.0-0.2) X10*3/uL Abs Immat Gran (auto) (0.00-0.03) X10*3/uL Absolute Neuts (auto) (2.0-8.3) x10*3/uL Absolute Nucleated RBC (0.0-0.012) X10*3/uL Nucleated RBC % (auto) (0.0-0.2) /100WBC Sodium (135-145) mmol/L Potassium (3.3-5.1) mmol/L Chloride (96-108) mmol/L Carbon Dioxide (22-29) mmol/L Anion Gap (12-20) BUN (9-16) mg/dL Creatinine (0.5-1.4) mg/dL Estim Creat Clear Calc Estimated GFR Random Glucose (60-115) mg/dL Calcium (8.4-10.2) mg/dL Total Bilirubin (0.0-1.0) mg/dL Direct Bilirubin (0.0-0.5) mg/dL AST (5-31) U/L ALT (0-31) U/L Alkaline Phosphatase (39-117) U/L Total Protein (6.5-8.0) g/dL Albumin (3.5-5.0) g/dL Urine Color YELLOW Urine Appearance CLEAR Urine pH 6.0 (5.0-8.0) Ur Specific [place] >= 1.030 H (1.005-1.025) Urine Protein NEG (NEG-TRACE) MG/DL Urine Glucose (UA) NEG (NEG) MG/DL Urine Ketones NEG (NEG) MG/DL Urine Blood 3+ H (NEG) Urine Nitrite NEG (NEG) Ur Leukocyte Esterase NEG (NEG) Urine RBC 30-49 H (0) /HPF Urine WBC 0-2 (0-4) /HPF Ur Squamous Epith Cells 2+ /LPF Calcium Oxalate Crystal 1+ /LPF Urine Bacteria TRACE /LPF Urine Mucus TRACE /LPF Urine Test NEGATIVE (NEGATIVE) Urine Opiates Screen Not Detected (Not Detect) Urine Fentanyl Screen Not Detected (Not Detect) Ur Barbiturates Screen Not Detected (Not Detect) Ur Phencyclidine Scrn Not Detected (Not Detect) Ur Amphetamines Screen Not Detected (Not Detect) U Benzodiazepines Scrn Not Detected (Not Detect) Urine Cocaine Screen Not Detected (Not Detect) U Marijuana (THC) Screen POSITIVE H (Not Detect) COVID-19 (NESSA) (Negative) COVID-19 Clin Com Discharge Plan Discharge Clinical Impression: Bipolar disorder Patient Disposition: Home, Self-Care Instructions: Bipolar Disorder (DC) Additional Instructions: Follow-up with your outpatient providers Prescriptions: No Action gabapentin 300 mg capsule 300 mg PO TID Qty: 90 1RF clonidine HCl 0.2 mg tablet 0.2 mg PO BID 30 Days Qty: 60 3RF clonidine HCl 0.3 mg tablet 0.3 mg PO BEDTIME 30 Days Qty: 30 2RF tretinoin 0.025 % cream 1 appl topical BEDTIME 0RF spironolactone 100 mg tablet 1 tab PO DAILY PRN (Reason: Acne) 0RF Restasis 0.05 % dropperette 1 drp ophthalmic (eye) BID 0RF clonazepam 1 mg tablet 1 mg PO BID 0RF clotrimazole [Antifungal (clotrimazole)] 1 % cream 1 appl topical BID PRN (Reason: Rash) 0RF docusate sodium 100 mg capsule 100 mg PO BID Qty: 60 2RF Rx Instructions: sending this to let you know that we will be covering her clonazepam and gabapentin when needed please forward to use buprenorphine-naloxone [Suboxone] 8-2 mg film 1 film sublingual DAILY 30 Days Qty: 30 0RF Latuda 20 mg tablet 20 mg PO DAILY Qty: 30 0RF Rx Instructions: *Must take with with food (at least 350 calories) (DME) Jamil Ortiz See Rx Instructions .Route Qty: 1 0RF Rx Instructions: As directed Referrals: Ren Banegas MD [Primary Care Provider] - 2 days (as needed) Interventions: ED Discharge Assessment Last Done: 05/19/21 23:38
--- NOTE | 2021-05-19 21:12 | PHA.MEDREC ---
Pharmacy Consult ? Medication Reconciliation Pharmacy has completed the medication reconciliation. Spoke with patient in regards to her medications, she has not started the latuda, kept it on med rec so rx doesnt get deletec
[2021-05-19 21:15] LABS: Basophils Percent Auto 0.5 % (0-2); Eosinophils Absolute Auto 0.1 X10*3/uL (0.0-0.4); Eosinophils Percent Auto 2.2 % (0-4); Hemoglobin 14.8 g/dl (12.0-16.0); Imm Gran Abs Auto 0.02 X10*3/uL (0.00-0.03); Imm Gran Pct Auto 0.3 % (0.0-0.4); Lymphocytes Absolute Auto 3.2 X10*3/uL (1.2-4.9); Lymphocytes Percent Auto 49.7 % (20-40); Mean Corpuscular HGB Conc 34.4 g/dl (31.0-35.0); Mean Corpuscular Hemoglobin 30.4 pg (27.0-33.0); Mean Corpuscular Volume 88.3 fL (80.0-98.0); Mean Platelet Volume 9.6 fL (9.4-12.3); Monocytes Absolute Auto 0.4 X10*3/uL (0.1-1.2); Neutrophils Absolute Auto 2.7 x10*3/uL (2.0-8.3); Neutrophils Percent Auto 41.3 % (45-73); Platelet Count 230 X10*3/uL (160-400); Red Blood Count 4.87 X10*6/uL (4.20-5.50); Red Cell Distribution Width 11.9 % (11.0-16.0); White Blood Count 6.5 X10*3/uL (4.8-10.8)
[2021-05-19 21:16] LABS: MANUAL DIFF FLAG NO
[2021-05-19 21:25] LABS: UPreg QC Valid YES; Urine Pregnancy NEGATIVE (NEGATIVE)
[2021-05-19 21:31] LABS: COVID-19 Test Negative (Negative)
[2021-05-19 21:52] LABS: Appearance Urine CLEAR; Color Urine YELLOW; Glucose Urine UA NEG (NEG); Leukocyte Esterase Urine NEG (NEG); Nitrite Urine NEG (NEG); Specific Gravity - Urine >= 1.030 (1.005-1.025); UACC Culture Trigger NO; Urine Blood 3+ (NEG); Urine Ketones NEG (NEG); Urine Protein NEG (NEG-TRACE)
[2021-05-19 21:54] LABS: Alanine Aminotransferase 9 U/L (0-31); Albumin Level 4.5 g/dL (3.5-5.0); Alkaline Phosphatase 85 U/L (39-117); Anion Gap 14 (12-20); Aspartate Amino Transferase 19 U/L (5-31); Bilirubin Direct 0.3 mg/dL (0.0-0.5); Bilirubin Total 0.7 mg/dL (0.0-1.0); Blood Urea Nitrogen 20 mg/dL (9-16); Calcium 9.7 mg/dL (8.4-10.2); Carbon Dioxide 26 mmol/L (22-29); Chloride 105 mmol/L (96-108); Creatinine Clr Calc Pharmacy 77.3; Estimated Glomerular Filt Rate > 60; Glucose Random 104 mg/dL (60-115); Potassium 4.8 mmol/L (3.3-5.1); Sodium 140 mmol/L (135-145); Total Protein 7.1 g/dL (6.5-8.0)
[2021-05-19 21:56] LABS: Amphetamine Screen Urine Not Detected (Not Detect); Barbiturates, Urine Not Detected (Not Detect); Benzodiazepines Screen Urine Not Detected (Not Detect); Cannabinoid Screen Urine POSITIVE (Not Detect); Cocaine Screen Urine Not Detected (Not Detect); Fentanyl, urine Not Detected (Not Detect); Opiate Screen Urine Not Detected (Not Detect); Phencyclidine Screen Urine Not Detected (Not Detect)
[2021-05-19 21:59] LABS: Bacteria Urine TRACE /LPF; Calcium Oxalate Crystals Urine 1+ /LPF; Mucus Urine TRACE /LPF; RBC Urine 30-49 /HPF (0); Squamous Epithelial Cell Urine 2+ /LPF; WBC Urine 0-2 /HPF (0-4)
--- NOTE | 2021-05-19 23:42 | MHC.CARE ---
CARE team met with pt for a crisis consult. Pt presents to the ED with a hx of bipolar 1 disorder. When pt initially came into the ED she disclosed SI with no plan or intent. She reports she had been manic for a few days and now is depressed . Pt had been irritable as she was presented the protocol here in the pod and initially did not want to change room attendant. Pt tells me that Carlotta Gonzalez is her outpatient provider for MAT. Pt states that she met with Carlotta today and had been prescribed klonipan and latuda until she can meet with her new psychiatric provider on May 31. 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 Once this happened she called Carlotta, triggered, and had an extreme reaction (yelling & screaming). Due to pt's outbursts Carlotta encouraged her to come to the ED. Pt shares that her impression to coming to the ED was to get meds . Pt is observed pacing and requesting to leave. She is unhappy that she is in a confined space and has to wait to be seen. When t/w speaks with her, her mood is agitated and irritable. She is calm during some conversation, however becomes easily triggered. Pt denies current SI/HI, AH/VH. 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 She states that she is struggling with her mood however keeps it together at work but struggles at home. Pt reports poor sleep because she works and cares for her daughter. Pt is upset about being here stating she was given the wrong information after informing her that she cannot get any medications in the ED. Pt shares that her anxiety is heightened being here and if she has to stay longer she is going to explode . According to N, pt does not have any hx of IP, one admission to PHP in 2020. Pt denies any suicide attempts. Pt also has a hx of anxiety and depression. Pt was encouraged to try PHP again however she said she cannot due to work. She states she will deal with it for the next few weeks . She also states I've tried every medication anyway nothing works for me, no one can help me . Pt does not present with imminent risk to herself or others. She is not voluntary for tx. Pt was informed that her symptoms may not improve and therefore should consider treatment. She says nothing at this time will be helpful to her. She states not even the latuda is going to be helpful to her klonipan doesn't even help anymore . T/w consulted with Lola Reyes [facility] who agrees with plan to d/c. Lola shares that she will connect with Carlotta Gonzalez tomorrow to determine if she will be following up with pt. I attempted to safety plan with pt, she was unwilling to participate as she was fixated on returning home so she can go to sleep and I can't get meds here any way I don't know why I am still here . T/w informs pt that the CARE team can follow up with her tomorrow and support her, she states no you can't there is nothing you can do for me, don't even bother . Provider Cordelia Suggs consulted with and agreed with d/c. It is my clinical opinion that pt will benefit from medication stabilization, however pt is unwilling to go to tx and although she is struggling with her mood she does not pose as a threat. T/w also contacted her mother, whom is currently with her 14 year old daughter and her mother confirmed that pt wakes up early to bring her to school. She advocates for pt to receive medication but otherwise was not concerned for pt's safety returning home. Pt was discharged and reports her klonipan bottle was missing.
== END 2021-05-19 23:58 | disposition home or self-care (01) ==
PROVIDERS: Nurse Practitioner Family; Emergency Provider Emergency Medicine; PCP Family Medicine
DX: F33.1 Major depressive disorder, recurrent, moderate (principal); R45.851 Suicidal ideations; F11.90 Opioid use, unspecified, uncomplicated; Z79.899 Other long term (current) drug therapy; Z87.891 Personal history of nicotine dependence; Z20.822 Contact with and (suspected) exposure to COVID-19
CPT/HCPCS: 80048; 80076; 80307; 81001; 81025; 85025; 87635; 99283; 99285

== ENCOUNTER → 2021-06-28 08:20 | Outpatient (BNVA) | payer OTHER, SELFPAY | PROVIDERS: PCP Hospitalist; Visit Provider Advanced Practice Midwife | DX: Z01.419 Encounter for gynecological examination (general) (routine) without abnormal findings (principal); M53.3 Sacrococcygeal disorders, not elsewhere classified; S16.1XXA Strain of muscle, fascia and tendon at neck level, initial encounter | CPT/HCPCS: 99212 ==

== ENCOUNTER → 2021-06-30 15:54 | Outpatient (BNVA) | payer OTHER, SELFPAY | PROVIDERS: Visit Provider Nurse Practitioner Psychiatric/Mental Health | DX: Z13.89 Encounter for screening for other disorder (principal); Z87.891 Personal history of nicotine dependence; Z79.899 Other long term (current) drug therapy ==

== ENCOUNTER → 2021-07-08 08:57 | Outpatient (BNVA) | payer OTHER, SELFPAY | PROVIDERS: Visit Provider Internal Medicine | DX: S16.1XXA Strain of muscle, fascia and tendon at neck level, initial encounter (principal); M41.9 Scoliosis, unspecified | CPT/HCPCS: 20553; 99212 ==

== ENCOUNTER 2021-07-11 17:17 | Outpatient (REF) | payer OTHER, SELFPAY ==
--- NOTE | ~2021-07-11 | XR_ITS ---
EXAMINATION: XR THORACOLUMBAR SPINE CLINICAL INFORMATION: Scoliosis COMPARISON: Chest x-ray November 2019 TECHNIQUE: 3 views of the and thoracic spine including swimmer's view FINDINGS: There is mild curvature of the midthoracic spine to the right with apex at T6-T7. This is similar to previous chest x-ray. Bone alignment is otherwise normal. No fracture or dislocation is seen. Disc spaces are normal. There are surgical clips under the left hemidiaphragm. Paraspinal soft tissues are otherwise normal. XR/XR thoracic spine 2V IMPRESSION: Mild curvature of the midthoracic spine to the right.
== END 2021-07-11 17:18 | disposition home or self-care (01) ==
LOC: HO.XRAY 17:17
PROVIDERS: PCP Family Medicine; Visit Provider Internal Medicine
DX: M41.9 Scoliosis, unspecified (principal)
CPT/HCPCS: 72070

== ENCOUNTER → 2021-08-16 08:54 | Outpatient (BNVA) | payer OTHER, SELFPAY | PROVIDERS: PCP Family Medicine; Visit Provider Nurse Practitioner Psychiatric/Mental Health | DX: Z51.81 Encounter for therapeutic drug level monitoring (principal); F11.20 Opioid dependence, uncomplicated | CPT/HCPCS: 80305; 99211 ==

== ENCOUNTER 2021-10-13 12:41 | Emergency (ER) | payer OTHER, SELFPAY ==
[2021-10-13 13:25] VITALS: BP 119/82; PULSE 75; RESP 18; TEMP 36.8; O2SAT 98; BMI 21.0
[2021-10-13] MEDS: Ketorolac Tromethamine 30 MG/ML VIAL IM (15:20)
[2021-10-13] MEDS: Cyclobenzaprine HCl 10 MG TABLET PO (15:20)
--- NOTE | 2021-10-13 15:22 | ED_ITS ---
HPI - Back Pain/Injury General Chief Complaint: Back Pain/Injury Stated Complaint: back pain Time Seen by Provider: 10/13/21 14:51 Source: patient Mode of arrival: ambulatory History of Present Illness HPI Narrative: 36-year-old female with a past medical history of anxiety, asthma, bipolar, depression, opioid dependence, PTSD, on Suboxone, presenting to the ED complaining of acute on chronic thoracic, lumbar, and coccygeal back pain x years. Reports history of herniated discs and had an MRI in July. Denies known injury, trauma or fall. Admits saw PCP yesterday who referred patient to pain management, admits has seen many pain management doctors in the past without improvement in symptoms. Reports currently takes no medication for her pain. Denies ever seeing neurosurgeon. Reports pain intermittently radiates down left lower extremity. Denies numbness, tingling, weakness, urinary incontinence/retention, fever MD elicited complaint: back pain Pertinent past history: prior back pain Onset (ago): year(s) Timing: constant Related Data Home Medications Medication Instructions Recorded Confirmed clotrimazole 1 % topical cream 1 appl topical BID PRN Rash 05/19/21 10/12/21 (Antifungal (clotrimazole)) cyclosporine 0.05 % eye drops in a 1 drp ophthalmic (eye) BID 05/19/21 10/12/21 dropperette (Restasis) spironolactone 100 mg tablet 1 tab PO DAILY PRN Acne 05/19/21 10/12/21 tretinoin 0.025 % topical cream 1 appl topical BEDTIME 05/19/21 10/12/21 doxycycline monohydrate 100 mg 100 mg PO BID 06/28/21 10/12/21 tablet ziprasidone HCl 20 mg capsule 20 mg PO BEDTIME 06/28/21 10/12/21 Previous Rx's Medication Instructions Recorded docusate sodium 100 mg capsule 100 mg PO BID #60 caps 02/17/21 Donut pillow #1 ea 05/10/21 clonidine HCl 0.2 mg tablet 0.2 mg PO BID 1 month #60 tabs 05/26/21 clonidine HCl 0.3 mg tablet 0.3 mg PO BEDTIME 1 month #30 tabs 05/26/21 gabapentin 300 mg capsule 300 mg PO TID #90 caps 05/26/21 lidocaine 5 % topical patch 1 patch topical DAILY #30 ea 06/28/21 baclofen 10 mg tablet 10 mg PO TID #90 tabs 07/08/21 nirmatrelvir 300 mg (150 mg x See Rx Instructions PO .COMPLEX 5 07/18/21 2)-ritonavir 100 mg tablet (EUA) days #30 tabs (Paxlovid 300 mg () simethicone 180 mg capsule (Gas 180 mg PO BID PRN abdominal 09/08/21 Relief (simethicone)) distention #60 caps buprenorphine 8 mg-naloxone 2 mg 1 film sublingual DAILY 21 days 09/23/21 sublingual film (Suboxone) #21 ea clonazepam 1 mg tablet 1 mg PO BID 28 days #56 tabs 10/12/21 acetaminophen 500 mg tablet 500 mg PO Q6H PRN fever or pain 10/13/21 (Tylenol Extra Strength) #14 tabs cyclobenzaprine 10 mg tablet 10 mg PO TID PRN muscle spasm #14 10/13/21 tabs naproxen 500 mg tablet 500 mg PO BID PRN pain 10 days #20 10/13/21 tabs Allergies Allergy/AdvReac Type Severity Reaction Status Date / Time hydrocodone [From Vicodin] Allergy Intermediate hives Verified 10/12/21 10:03 clavulanic acid Allergy Mild Diarrhea Verified 10/12/21 10:03 [From Augmentin] Sulfa (Sulfonamide AdvReac Intermediate Itching Verified 10/12/21 10:03 Antibiotics) [SULFA(SULFONAMIDE ANTIBIOTICS)] sumatriptan [From IMITREX] AdvReac Mild Vomiting Verified 10/12/21 10:03 Review of Systems Review of Systems: Constitutional: No Fever, No Chills ENT/Mouth: No Ear Pain, No Nasal Congestion, No Sinus Pain, No sore throat, No Rhinorrhea, No Swallowing Difficulty Cardiovascular: No Chest Pain, No SOB Respiratory: No Cough, No Sputum Gastrointestinal: No Nausea, No Vomiting, No Diarrhea, No Constipation, No Abdominal pain Genitourinary: No Dysuria, No Urinary Frequency, No Hematuria, No Urinary Incontinence/retention, No Urgency, No Flank Pain Musculoskeletal: + joint pain, No Myalgias, No Joint Swelling Skin: No Skin Lesions, No rash Neuro: No Weakness, No Numbness, No Paresthesias Yes all other systems are reviewed and are negative Neurologic: Denies Sensory deficit (Neuro) [facility] Past Medical History Attestation statement: The following information was validated with the patient. Medical History Anxiety Asthma Bipolar 2 disorder Cholelithiasis Depression Diaphragmatic hernia Opioid dependence, uncomplicated Opioid use disorder PTSD (post-traumatic stress disorder) Steatosis, liver Surgical History History of sleeve gastrectomy Hx of bilateral breast reduction surgery Hx of section Hx of nasal septoplasty Obesity Family History Family History Father No problems noted. Mother No problems noted. Social History Social History Housing: Apartment Are you a primary foster care case manager to a significant other at home: No Do you presently have visiting nurse or other home services: No Alcohol intake: former Patient Tobacco Use Status: Former Tobacco user Cigarette Packs Per Day: 0.5 Cigarettes Per Day: 10.0 Years Smoked: 20 Substance Use Type: Heroin Advance Directives: No Advance Directives Information Provided: No service: No Current occupational status: unemployed Cognitive needs: No Hearing needs: No Vision needs: No Physical Exam Vital Signs: Vital Signs: Last Vital Signs Temp 98.3 F 10/13/21 13:25 Pulse 75 10/13/21 13:25 Resp 18 10/13/21 13:25 BP 119/82 10/13/21 13:25 Pulse Ox 98 10/13/21 13:25 O2 Del Method 10/13/21 13:25 BMI result Body Mass Index 21.0 Const: General: cooperative, healthy appearing and no acute distress Orientation/consciousness: patient oriented x3 Limitations: no limitations HEENT: Head: Yes normal to inspection and Yes atraumatic Ears: hearing grossly normal bilaterally General nose exam: Normal external nose present Face and sinus: Yes normal facial exam Eyes: General: appearance normal, both eyes and all related structures EOM: EOMs intact bilaterally Neck: Other: No midline cervical spinous tenderness Neck: Yes normal visual inspection and Yes no meningeal signs Resp: Effort & Inspection: normal respiratory effort and no respiratory distress Auscultation: clear to auscultation bilaterally Cardio: Rate: regular rate Heart sounds: S1 normal heart sound present and S2 normal heart sound present GI: Inspection: Yes normal to inspection Palpation (GI): Soft to palpation, nontender, no guarding and not rigid : General: Yes no CVA tenderness Back/Spine/Pelvis: Other: No midline thoracic/lumbar spinous tenderness/step-off or deformity. + bilateral diffuse back paraspinal and MSK tenderness & bilateral buttock tenderness reproducing subjective complaint Back: no CVA tenderness Skin: Rashes: no rashes Wounds: no wounds Neuro: Other: Strength intact throughout. No saddle anesthesia. Sensation intact to light touch. Neurovascular intact distally General: patient oriented x3, gait normal, tone normal, moves all extremities, no meningeal signs, no focal motor deficits and CN's II-XI intact bilaterally Gait exam (Neuro): Normal gait present Motor exam (neuro): 5/5 motor strength present throughout and Normal motor muscle tone present throughout Sensory Exam: No Sensory deficit (Neuro) Extrem: General: Yes normal to inspection Course Course Course Narrative: MDM - Back Pain/Injury MDM Narrative Medical decision making narrative: 36-year-old female with a past medical history of anxiety, asthma, bipolar, depression, opioid dependence, PTSD, on Suboxone, presenting to the ED complaining of acute on chronic thoracic, lumbar, and coccygeal back pain x years. On exam vital signs stable, NAD, nontoxic appearing, physical exam as above, no midline spinous tenderness throughout, no red flag symptoms, no saddle anesthesia. Concern for MSK pain/strain versus sciatica Low suspicion for cauda equina, cord compression, or fracture. Low suspicion for epidural abscess with chronicity of symptoms Reviewed patient's MRI from July, had lengthy discussion with patient that she n eeds to follow-up/stick with pain management and see a neurosurgeon due to continued pain. Plan: IM Toradol, Flexeril, lidocaine, follow-up Differential Diagnosis Differential diagnosis: Likely lumbar radiculopathy, sciatica, strain of lumbar region and thoracic back pain Medical Records Attestation: I reviewed the patient's medical records. Lab Data Attestation: I reviewed the patient's lab results. Discharge Plan Discharge Clinical Impression: Chronic back pain Patient Disposition: Home, Self-Care Instructions: Chronic Back Pain (DC) Additional Instructions: You need to follow-up with Neurosurgery and Pain Management Flexeril is a muscle relaxer, take at night as it makes you drowsy, do not drive, drink alcohol, or operate machinery while taking it Naproxen as an anti-inflammatory / pain medication, take with food In addition take Tylenol at home If symptoms persist or worsen, pain becomes unbearable, you developed urinary retention or incontinence, or weakness return to the ED Prescriptions: New cyclobenzaprine 10 mg tablet 10 mg PO TID PRN (Reason: muscle spasm) Qty: 14 0RF acetaminophen [Tylenol Extra Strength] 500 mg tablet 500 mg PO Q6H PRN (Reason: fever or pain) Qty: 14 0RF naproxen 500 mg tablet 500 mg PO BID PRN (Reason: pain) 10 Days Qty: 20 0RF No Action clonidine HCl 0.2 mg tablet 0.2 mg PO BID 30 Days Qty: 60 3RF clonidine HCl 0.3 mg tablet 0.3 mg PO BEDTIME 30 Days Qty: 30 2RF gabapentin 300 mg capsule 300 mg PO TID Qty: 90 1RF Paxlovid (EUA) 150 mg x 2- 100 mg tablet See Rx Instructions PO .COMPLEX 5 Days Qty: 30 0RF Rx Instructions: take TWO 150 mg tablets of nirmatrelvir with ONE 100 mg tablet of ritonavir twice daily for 5 days PO simethicone [Gas Relief (simethicone)] 180 mg capsule 180 mg PO BID PRN (Reason: abdominal distention) Qty: 60 2RF buprenorphine-naloxone [Suboxone] 8-2 mg film 1 film sublingual DAILY 21 Days Qty: 21 1RF tretinoin 0.025 % cream 1 appl topical BEDTIME spironolactone 100 mg tablet 1 tab PO DAILY PRN (Reason: Acne) Restasis 0.05 % dropperette 1 drp ophthalmic (eye) BID clotrimazole [Antifungal (clotrimazole)] 1 % cream 1 appl topical BID PRN (Reason: Rash) docusate sodium 100 mg capsule 100 mg PO BID Qty: 60 2RF Rx Instructions: sending this to let you know that we will be covering her clonazepam and gabapentin when needed please forward to use clonazepam 1 mg tablet 1 mg PO BID 28 Days Qty: 56 0RF Rx Instructions: 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 10/14 doxycycline monohydrate 100 mg tablet 100 mg PO BID ziprasidone HCl 20 mg capsule 20 mg PO BEDTIME (DME) Jamil sawyer [facility] See Rx Instructions .Route Qty: 1 0RF Rx Instructions: As directed lidocaine 5 % adhesive patch,medicated 1 patch topical DAILY Qty: 30 4RF Rx Instructions: leave on most painful area for up to 12 hrs baclofen 10 mg tablet 10 mg PO TID Qty: 90 0RF Rx Instructions: Take one tablet at night for 1 week; if well tolerated, increase to twice daily for a week; if well tolerated, increase to thrice daily and continue Referrals: Los Mendez PA-C [Physician Store Administrative Assistant] - Denny Abad MD [Physician] - Rios Andrews MD [Physician] - Heather Daly FNP [Nurse Practitioner] - Tj Astudillo MD [Physician] - Ellen Watson DO [Physician] - Juliana Kruger MD [Physician] - Sarah Martínez FNP [Nurse Practitioner] - Stand Alone Forms: Work/School Release Interventions: ED Discharge Assessment Last Done: 10/13/21 15:35 Discharge Date/Time: 10/13/21 15:35
== END 2021-10-13 15:35 | disposition home or self-care (01) ==
PROVIDERS: Emergency Provider Emergency Medicine; PCP Hospitalist
DX: M54.50 Low back pain, unspecified (principal); Z87.891 Personal history of nicotine dependence; Z79.899 Other long term (current) drug therapy
CPT/HCPCS: 96372; 99283; 99284; J1885

== ENCOUNTER 2021-11-25 10:28 | Emergency (ER) | payer OTHER, SELFPAY ==
[2021-11-25 12:22] VITALS: BP 107/78; PULSE 85; RESP 17; TEMP 36.3; O2SAT 95; BMI 20.5
--- NOTE | 2021-11-25 13:17 | ED_ITS ---
HPI - Back Pain/Injury General Chief Complaint: Back Pain/Injury Stated Complaint: back pain Time Seen by Provider: 11/25/21 11:23 Source: patient Mode of arrival: ambulatory Limitations: no limitations History of Present Illness HPI Narrative: 36 yo female presenting for acute on chronic back pain for the last few days. She reports a history of spinal stenosis, disc bulging and chronic issues with pain. She reports recently seeing her PCP and getting started on steroids and flexeril with no improvement. She states the pain is in her coccyx, low back and middle back on the right side. She states the middle back pain is muscular and the flexeril is doing nothing for her. She reports previously being on Suboxone for chronic pain but stopped taking it when she went on vacation and never restarted. She reports the pain is severe when she goes from sitting to standing. It is making it hard for her to perform her job. She denies LE weakness. She denies urinary or bowel incontinence. MD elicited complaint: back pain Pertinent past history: prior back pain Onset (ago): day(s) Timing: progressively worsening Severity: severe Similar Symptoms Previously: Yes Quality: stabbing and spasming Location: lumbar spine, sacrum and right upper back Radiation: none Exacerbating factors: movement, sitting upright and walking Relieving factors: none Context: unknown Associated symptoms: difficulty walking Treatments prior to arrival: heat therapy, NSAIDS, acetaminophen, other medications and prescription analgesics Work related injury: No Related Data Home Medications Medication Instructions Recorded Confirmed clotrimazole 1 % topical cream 1 appl topical BID PRN Rash 05/19/21 11/08/21 (Antifungal (clotrimazole)) cyclosporine 0.05 % eye drops in a 1 drp ophthalmic (eye) BID 05/19/21 11/08/21 dropperette (Restasis) spironolactone 100 mg tablet 1 tab PO DAILY PRN Acne 05/19/21 11/08/21 tretinoin 0.025 % topical cream 1 appl topical BEDTIME 05/19/21 11/08/21 ziprasidone HCl 20 mg capsule 20 mg PO BEDTIME 06/28/21 11/08/21 Previous Rx's Medication Instructions Recorded docusate sodium 100 mg capsule 100 mg PO BID #60 caps 02/17/21 Donut pillow #1 ea 05/10/21 clonidine HCl 0.2 mg tablet 0.2 mg PO BID 1 month #60 tabs 05/26/21 clonidine HCl 0.3 mg tablet 0.3 mg PO BEDTIME 1 month #30 tabs 05/26/21 lidocaine 5 % topical patch 1 patch topical DAILY #30 ea 06/28/21 nirmatrelvir 300 mg (150 mg See Rx Instructions PO .COMPLEX 5 07/18/21 x2)-ritonavir 100 mg tablet,dose days #30 tabs pack(EUA) (Paxlovid) simethicone 180 mg capsule (Gas 180 mg PO BID PRN abdominal 09/08/21 Relief (simethicone)) distention #60 caps buprenorphine 8 mg-naloxone 2 mg 1 film sublingual DAILY 21 days 09/23/21 sublingual film (Suboxone) #21 ea acetaminophen 500 mg tablet 1,000 mg PO Q6H PRN fever or pain 10/20/21 (Tylenol Extra Strength) 28 days #100 tabs cyclobenzaprine 10 mg tablet 10 mg PO TID PRN muscle spasm #90 10/20/21 tabs gabapentin 600 mg tablet 600 mg PO .COMPLEX #120 tabs 11/08/21 pantoprazole 40 mg tablet,delayed 40 mg PO DAILY #30 tabs 11/08/21 release clonazepam 1 mg tablet 1 mg PO BID 28 days #56 tabs 11/14/21 naproxen 500 mg tablet,delayed 500 mg PO Q12H #60 tabs 11/14/21 release (EC-Naproxen) lidocaine 4 % topical cream 1 appl topical QID PRN pain #30 11/23/21 grams prednisone 20 mg tablet 40 mg PO DAILY 5 days #10 tabs 11/23/21 carisoprodol 350 mg tablet (Soma) 350 mg PO TID PRN muscle pain #10 11/25/21 tabs Allergies Allergy/AdvReac Type Severity Reaction Status Date / Time hydrocodone [From Vicodin] Allergy Intermediate hives Verified 11/23/21 15:54 clavulanic acid Allergy Mild Diarrhea Verified 11/23/21 15:54 [From Augmentin] Sulfa (Sulfonamide AdvReac Intermediate Itching Verified 11/23/21 15:54 Antibiotics) [SULFA(SULFONAMIDE ANTIBIOTICS)] sumatriptan [From IMITREX] AdvReac Mild Vomiting Verified 11/23/21 15:54 Review of Systems Review of Systems: Constitutional: No Fever, No Chills Cardiovascular: No Chest Pain, No SOB Respiratory: No Cough, No Sputum Gastrointestinal: No Nausea, No Vomiting, No Diarrhea, No abdominal Pain Genitourinary: No Dysuria, No Urinary Frequency, No Hematuria, No urinary incontinence Musculoskeletal: + joint pain, +Myalgias Skin: No Skin Lesions, No rash Neuro: No Weakness, No Numbness, No Dizziness, No Headache Psych: + Anxiety/Panic, + Depression Heme/Lymph: No Bruising, No Lymphadenopathy Endocrine: No Polyuria, No Polydipsia PMFSH Past Medical History Medical History Anxiety Asthma Bipolar 2 disorder Cholelithiasis Depression Diaphragmatic hernia Opioid dependence, uncomplicated Opioid use disorder PTSD (post-traumatic stress disorder) Steatosis, liver Surgical History History of sleeve gastrectomy Hx of bilateral breast reduction surgery Hx of section Hx of nasal septoplasty Obesity Family History Family History Father No problems noted. Mother No problems noted. Social History Social History Housing: Apartment Are you a primary career development specialist to a significant other at home: No Do you presently have visiting nurse or other home services: No Alcohol intake: former Patient Tobacco Use Status: Former Tobacco user Cigarette Packs Per Day: 0.5 Cigarettes Per Day: 10.0 Years Smoked: 20 Substance Use Type: Heroin service: No Current occupational status: unemployed Cognitive needs: No Hearing needs: No Vision needs: No Physical Exam Vital Signs: Vital Signs: Last Vital Signs Temp 97.4 F 11/25/21 12:22 Pulse 85 11/25/21 12:22 Resp 17 11/25/21 12:22 BP 107/78 11/25/21 12:22 Pulse Ox 95 11/25/21 12:22 O2 Del Method 11/25/21 12:22 BMI result Body Mass Index 20.5 Appearance: Alert. Oriented X3. No acute distress. HEENT: normal inspection Neck: Normal inspection. Neck supple. CVS: Normal heart rate and rhythm. Pulses normal. Respiratory: No respiratory distress. Breath sounds normal. Back: normal inspection. right middle thoracic area with soft tissue tenderness and palpable spasm. no midline tenderness of the thoracic spine. low lumbar spine and soft tissues with tenderness. Skin: Skin warm and dry. Normal skin color. Normal skin turgor. No rashes. Extremities: No lower extremity edema. Neuro: Oriented X 3. No motor deficit. No sensory deficit. Steady gait. Course Course Course Narrative: 36 yo female presenting with acute on chronic back pain in the coccyx, lumbar area, middle right back. Reports appointment with [facility] at the end of December. She just saw her PCP. She reportedly saw Carlotta Gonzalez in the past for pain issues and was on Suboxone. She adamently denies IVDA or any pill problems. She admits she did take it today and yesterday from a stash she had at home but it not doing anything to help me. She is asking for a different muscle relaxer to help her muscle spasm in right middle back. We discussed importance of outpatient follow up, options of topical CBD, PT, acupuncture. Will give short course of new muscle relaxer. Spoke with [facility] and they will hold her flexeril in the mean time. Stable for d/c home with outpatient follow up. Discharge Plan Discharge Clinical Impression: Thoracic back pain Patient Disposition: Home, Self-Care Instructions: Chronic Back Pain (DC) Additional Instructions: STOP taking Flexeril and try the new muscle relaxer. No bending, lifting or twisting. Use ice several times per day for 20 minutes at a time for the next 48 hours and then change to heat. Take medications as prescribed to help with pain and discomfort. Follow up with your Primary Care Doctor & Pain Management as scheduled. If your pain worsens, if you develop new numbness, tingling, weakness, loss of function or incontinence call 911 or come back to the ER right away for evaluation. Prescriptions: New carisoprodol [Soma] 350 mg tablet 350 mg PO TID PRN (Reason: muscle pain) Qty: 10 0RF No Action clonidine HCl 0.2 mg tablet 0.2 mg PO BID 30 Days Qty: 60 3RF clonidine HCl 0.3 mg tablet 0.3 mg PO BEDTIME 30 Days Qty: 30 2RF Paxlovid (EUA) 150 mg x 2- 100 mg tablet See Rx Instructions PO .COMPLEX 5 Days Qty: 30 0RF Rx Instructions: take TWO 150 mg tablets of nirmatrelvir with ONE 100 mg tablet of ritonavir twice daily for 5 days PO simethicone [Gas Relief (simethicone)] 180 mg capsule 180 mg PO BID PRN (Reason: abdominal distention) Qty: 60 2RF buprenorphine-naloxone [Suboxone] 8-2 mg film 1 film sublingual DAILY 21 Days Qty: 21 1RF acetaminophen [Tylenol Extra Strength] 500 mg tablet 1,000 mg PO Q6H MDD 3 doses in 24 hours PRN (Reason: fever or pain) 28 Days Qty: 100 1RF cyclobenzaprine 10 mg tablet 10 mg PO TID PRN (Reason: muscle spasm) Qty: 90 1RF naproxen [EC-Naproxen] 500 mg tablet,delayed release (DR/EC) 500 mg PO Q12H Qty: 60 0RF Rx Instructions: with food or milk hold for stomach discomfort and should continue with pantoprazole clonazepam 1 mg tablet 1 mg PO BID 28 Days Qty: 56 0RF tretinoin 0.025 % cream 1 appl topical BEDTIME spironolactone 100 mg tablet 1 tab PO DAILY PRN (Reason: Acne) Restasis 0.05 % dropperette 1 drp ophthalmic (eye) BID clotrimazole [Antifungal (clotrimazole)] 1 % cream 1 appl topical BID PRN (Reason: Rash) docusate sodium 100 mg capsule 100 mg PO BID Qty: 60 2RF Rx Instructions: sending this to let you know that we will be covering her clonazepam and gabapentin when needed please forward to use gabapentin 600 mg tablet 600 mg PO .COMPLEX Qty: 120 1RF Rx Instructions: 600 mg orally one twice a day and two at bedtime; pantoprazole 40 mg tablet,delayed release (DR/EC) 40 mg PO DAILY Qty: 30 1RF Rx Instructions: taken with nsaid therapy of 30-60 day duration due to hx of gastric surgery prednisone 20 mg tablet 40 mg PO DAILY 5 Days Qty: 10 0RF lidocaine 4 % cream 1 appl topical QID PRN (Reason: pain) Qty: 30 1RF ziprasidone HCl 20 mg capsule 20 mg PO BEDTIME (DME) Jamil Ortiz See Rx Instructions .Route Qty: 1 0RF Rx Instructions: As directed lidocaine 5 % adhesive patch,medicated 1 patch topical DAILY Qty: 30 4RF Rx Instructions: leave on most painful area for up to 12 hrs Referrals: Ren Banegas MD [Primary Care Provider] - Stand Alone Forms: Work/School Release Interventions: ED Discharge Assessment Last Done: 11/25/21 13:49 Discharge Date/Time: 11/25/21 13:50
== END 2021-11-25 13:50 | disposition home or self-care (01) ==
PROVIDERS: Emergency Provider Emergency Medicine; PCP Family Medicine
DX: M54.6 Pain in thoracic spine (principal); M54.50 Low back pain, unspecified; Z87.891 Personal history of nicotine dependence
CPT/HCPCS: 99282; 99283

== ENCOUNTER → 2021-12-13 09:12 | Outpatient (BNVA) | payer OTHER, SELFPAY | PROVIDERS: PCP Family Medicine; Visit Provider Nurse Practitioner Psychiatric/Mental Health | DX: F11.20 Opioid dependence, uncomplicated (principal); F14.10 Cocaine abuse, uncomplicated | CPT/HCPCS: 80305; 99212 ==

== ENCOUNTER → 2021-12-21 08:58 | Outpatient (BNVA) | payer OTHER, SELFPAY | PROVIDERS: PCP Hospitalist; Visit Provider Nurse Practitioner Psychiatric/Mental Health | DX: F11.20 Opioid dependence, uncomplicated (principal); F14.10 Cocaine abuse, uncomplicated | CPT/HCPCS: 80305; 99212 ==

== ENCOUNTER 2022-01-06 10:16 | Emergency (ER) | payer OTHER, SELFPAY ==
[2022-01-06 11:38] VITALS: BP 130/79; PULSE 74; RESP 16; TEMP 36.8; O2SAT 100; BMI 48.4
--- NOTE | 2022-01-06 13:16 | PC.NURSE ---
PT SCREAMING OBSCENITIES AT REGISTRATION STAFF, BRISKLY WALKING OUT W STEADY GAIT TO PARKING LOT ABRUPTLY.
--- NOTE | 2022-01-06 14:31 | PC.NURSE ---
called x3 [place] [facility] [place]. presumed lwt
== END 2022-01-06 15:33 | disposition left against medical advice (07) ==
LOC: HO.ED 14:45
PROVIDERS: Emergency Provider Emergency Medicine; PCP Family Medicine
DX: M54.50 Low back pain, unspecified (principal)
CPT/HCPCS: 99281

== ENCOUNTER 2022-01-10 10:36 | Outpatient (REF) | payer OTHER, SELFPAY ==
[2022-01-10 16:45] LABS: Amphetamine Screen Urine Not Detected (Not Detect); Barbiturates, Urine Not Detected (Not Detect); Benzodiazepines Screen Urine POSITIVE (Not Detect); Cannabinoid Screen Urine Not Detected (Not Detect); Cocaine Screen Urine POSITIVE (Not Detect); Fentanyl, urine Not Detected (Not Detect); Opiate Screen Urine Not Detected (Not Detect); Phencyclidine Screen Urine Not Detected (Not Detect)
== END 2022-01-10 10:37 | disposition home or self-care (01) ==
LOC: HO.LAB 10:36
PROVIDERS: Visit Provider Hospitalist
DX: F11.20 Opioid dependence, uncomplicated (principal); F14.10 Cocaine abuse, uncomplicated
CPT/HCPCS: 80307; 99212

== ENCOUNTER → 2022-01-17 09:03 | Outpatient (BNVA) | payer OTHER, SELFPAY | PROVIDERS: PCP Family Medicine; Visit Provider Nurse Practitioner Psychiatric/Mental Health | DX: F11.21 Opioid dependence, in remission (principal); F14.10 Cocaine abuse, uncomplicated; Z51.81 Encounter for therapeutic drug level monitoring; Z79.899 Other long term (current) drug therapy | CPT/HCPCS: 80305; 99212 ==

== ENCOUNTER → 2022-01-24 10:05 | Outpatient (BNVA) | payer OTHER, SELFPAY | PROVIDERS: PCP Family Medicine; Referring Provider Family Medicine; Visit Provider Physician Assistant Surgical | DX: E66.3 Overweight (principal); Z68.25 Body mass index [BMI] 25.0-25.9, adult; Z98.84 Bariatric surgery status | CPT/HCPCS: 99212 ==

== ENCOUNTER → 2022-02-14 08:44 | Outpatient (BNVA) | payer OTHER, SELFPAY | PROVIDERS: PCP Family Medicine; Visit Provider Nurse Practitioner Psychiatric/Mental Health | DX: Z51.81 Encounter for therapeutic drug level monitoring (principal); F11.21 Opioid dependence, in remission | CPT/HCPCS: 80305; 99212 ==

== ENCOUNTER → 2022-03-28 10:06 | Outpatient (BNVA) | payer OTHER, SELFPAY | PROVIDERS: PCP Family Medicine; Visit Provider Nurse Practitioner Psychiatric/Mental Health | DX: F11.21 Opioid dependence, in remission (principal); F43.10 Post-traumatic stress disorder, unspecified; F31.81 Bipolar II disorder; Z79.899 Other long term (current) drug therapy; Z51.81 Encounter for therapeutic drug level monitoring; F41.9 Anxiety disorder, unspecified | CPT/HCPCS: 99212 ==

== ENCOUNTER → 2022-04-05 15:24 | Outpatient (BNVA) | payer OTHER, SELFPAY | PROVIDERS: PCP Family Medicine; Visit Provider Physician Assistant Surgical | DX: Z13.89 Encounter for screening for other disorder (principal) ==

== ENCOUNTER 2022-04-06 12:07 | Outpatient (REF) | payer OTHER, SELFPAY ==
--- NOTE | ~2022-04-06 | US_ITS ---
EXAMINATION: US ABDOMEN COMPLETE CLINICAL INFORMATION: Pain. COMPARISON: None TECHNIQUE: Real-time imaging of the abdominal viscera. FINDINGS: Region of the pancreas is felt to be unremarkable. No free fluid. The aorta and vena cava are within normal limits The liver is mildly increased attenuation. This may be consistent with an element of fatty change. Limited visualization. No lesion is seen. The gallbladder appears abnormal. Numerous areas of echogenicity most consistent with stones, gallbladder packed with stones. In addition I believe there is wall thickening. Difficult to evaluate for edema or pericholecystic fluid however on some images 51 and 52 we may be seeing some mild wall edema or pericholecystic fluid associated. There is pain on palpation with the transducer. The common duct measures 3 mm. The right kidney is measuring 10 cm. No hydronephrosis. 4 mm focus in the lower pole likely represents a nonobstructing calculus. Left kidney measures 10.8 cm. Again focal area of echogenicity involving the lower pole measures 5 mm may represent a nonobstructing calculus. Spleen is 11.7 cm. Probable small associated splenule US/US abdomen complete IMPRESSION: Cholelithiasis here and there is pain on palpation with the transducer in this region. No convincing evidence of gallbladder wall edema though there is felt to be wall thickening. Some possible edema on a few images are submitted but this is equivocal. Correlation recommended clinically. A few nonobstructing renal calculi are noted
[2022-04-06 12:21] LABS: MANUAL DIFF FLAG NO
[2022-04-06 12:39] LABS: Basophils Percent Auto 0.4 % (0-2); Eosinophils Absolute Auto 0.1 X10*3/uL (0.0-0.4); Eosinophils Percent Auto 2.1 % (0-4); Hematocrit 46.2 % (37.0-47.0); Hemoglobin 16.1 g/dl (12.0-16.0); Imm Gran Abs Auto 0.01 X10*3/uL (0.00-0.03); Imm Gran Pct Auto 0.2 % (0.0-0.4); Lymphocytes Absolute Auto 1.8 X10*3/uL (1.2-4.9); Lymphocytes Percent Auto 34.2 % (20-40); Mean Corpuscular HGB Conc 34.8 g/dl (31.0-35.0); Mean Corpuscular Hemoglobin 30.8 pg (27.0-33.0); Mean Corpuscular Volume 88.3 fL (80.0-98.0); Mean Platelet Volume 9.8 fL (9.4-12.3); Monocytes Absolute Auto 0.4 X10*3/uL (0.1-1.2); Monocytes Percent Auto 7.4 % (2-11); Neutrophils Absolute Auto 2.9 x10*3/uL (2.0-8.3); Neutrophils Percent Auto 55.7 % (45-73); Platelet Count 238 X10*3/uL (160-400); Red Blood Count 5.23 X10*6/uL (4.20-5.50); Red Cell Distribution Width 11.9 % (11.0-16.0); White Blood Count 5.2 X10*3/uL (4.8-10.8)
[2022-04-06 13:12] LABS: Chloride 106 mmol/L (96-108); Potassium 4.4 mmol/L (3.3-5.1); Sodium 140 mmol/L (135-145)
[2022-04-06 13:37] LABS: Ferritin 159 ng/mL (10-122); Insulin 6 uU/mL (2-29); TSH reflex Free T4 0.63 uIU/mL (0.32-4.0); Vitamin D 25-OH Total 25.7 ng/mL (>30)
[2022-04-06 13:48] LABS: Vitamin B12 474 pg/mL (200-900)
[2022-04-06 14:52] LABS: Alanine Aminotransferase 6 U/L (0-31); Albumin Level 4.8 g/dL (3.5-5.0); Alkaline Phosphatase 80 U/L (39-117); Anion Gap 14 (12-20); Aspartate Amino Transferase 14 U/L (5-31); Bilirubin Direct 0.4 mg/dL (0.0-0.5); Bilirubin Total 1.5 mg/dL (0.0-1.0); Blood Urea Nitrogen 17 mg/dL (9-16); Calcium 10.1 mg/dL (8.4-10.2); Carbon Dioxide 26 mmol/L (22-29); Cholesterol 120 mg/dL; Estimated Glomerular Filt Rate > 60; Glucose Random 86 mg/dL (60-115); HDL Cholesterol 46 mg/dL; Iron 158 mcg/dL (30-160); LDL Cholesterol Calculated 62 mg/dl; Percent Iron Saturation 57 % (15-50); Total Iron Binding Capacity 277 mcg/dL (228-428); Triglycerides 61 mg/dL; Unsaturated Iron Binding 119 ug/dL
[2022-04-07 17:17] LABS: PTHI 59 pg/mL (16-77)
[2022-04-11 12:28] LABS: Zinc 71 mcg/dL (60-130)
[2022-04-11 16:48] LABS: Vitamin B1 <6 nmol/L (8-30)
[2022-04-12 10:23] LABS: Vitamin A 48 mcg/dL (38-98)
== END 2022-04-06 12:08 | disposition home or self-care (01) ==
LOC: HO.US 12:07
PROVIDERS: PCP Family Medicine; Visit Provider Physician Assistant Surgical
DX: R10.9 Unspecified abdominal pain (principal); E66.3 Overweight
CPT/HCPCS: 36415; 76700; 80053; 80061; 82248; 82306; 82607; 82728; 82746; 83525; 83540; 83970; 84425; 84443; 84590; 84630; 85025; 99212

== ENCOUNTER 2022-04-12 08:33 | Day surgery (SDC) | payer OTHER, SELFPAY ==
--- NOTE | 2022-04-08 00:27 | MHC.SHP ---
Pre-Procedural Eval Section A Date of Service: 04/08/22 The patient is an INPATIENT: No The History & Physical has been completed within 30 days and I have reviewed it.: Yes Section B Chief Complaint: Calculus of gallbladder without cholecystitis with Relevant Family History (Specify if Yes): No Relevant Social History: None Present Medications: None Medical History: No relevant PMH History of Previous Operations: Relevant previous surgery/procedure and date(s) (Lap sleeve gastrectomy) Allergies: Allergies Allergy/AdvReac Type Severity Reaction Status Date / Time hydrocodone [From Vicodin] Allergy Intermediate hives Verified 04/05/22 15:28 clavulanic acid Allergy Mild Diarrhea Verified 04/05/22 15:28 [From Augmentin] Sulfa (Sulfonamide AdvReac Intermediate Itching Verified 04/05/22 15:28 Antibiotics) [SULFA(SULFONAMIDE ANTIBIOTICS)] sumatriptan [From IMITREX] AdvReac Mild Vomiting Verified 04/05/22 15:28 Review of Systems Sugical H&P ROS: Negative: Constitution, Cardiovascular, Respiratory, Neurological, Psychiatric, Hem-Onc, Allergic/Immunologic, Gastrointestinal, Genitourinary, Musculoskeletal, Integumentary, Endocrine and Eyes/Ears/Nose/Throat Exam Surgical H&P Exam: Normal: HEENT, Normal: Heart, Normal: Lungs, Normal: Extremities, Normal: Abdomen, Normal: Skin and Normal: Neurological Plan Diagnosis/Plan: Unchanged (Lap cholecystectomy for symptomatic cholelithiasis. Risks of bleeding, infection, CBD injury, pancreatitis, bile leak, VTE were discussed.) I have reviewed the history and physical and performed a pertinent physical examination on my patient. No changes have occurred unless specified. Time Spent With Patient Time: Total time managing care of this patient today ____ minutes.
--- NOTE | 2022-04-11 10:06 | HO.ANESPROP2 ---
Documented by User: Ellne Zaldivra NP 04/11/22 10:08 HPI - Anesthesia Eval Consult details Narrative: 37yo F for Cholecystectomy Laparoscopic s/p gastric sleeve 01/2020 with GA-ETT 7.5 Hx opioid use disorder - suboxone daily PMFSH Active Problems Active Problems: All Active Problems (Updated 04/06/22 @ 15:39 by MELANY Black) Symptomatic cholelithiasis (Acute) Abdominal pain (Acute) Cocaine use disorder (Acute) Bulging lumbar disc (Acute) Foraminal stenosis of lumbosacral region (Acute) Back pain (Acute) COVID-19 (Acute) Scoliosis of thoracic spine (Acute) Strain of cervical portion of both trapezius muscles (Acute) Encounter for annual routine gynecological examination (Acute) IUD surveillance (Acute) Coccyx pain (Acute) Status post rhinoplasty (Acute) Elevated LFTs (Acute) Encounter for IUD removal and reinsertion (Acute) Viral illness (Acute) Vitamin A deficiency (Acute) Spider varicose vein (Acute) BMI 24.0-24.9, adult (Acute) Overweight (Acute) Orthostatic hypotension (Acute) BMI greater than 30 (Acute) Breast pain in female (Acute) Spotting (Acute) Wrist pain, right (Acute) BMI 33.0-33.9,adult (Acute) Other skilled nursing (current) drug therapy (Acute) Encounter for annual routine gynecological examination (Acute) BMI 34.0-34.9,adult (Acute) Breakthrough bleeding with IUD (Acute) BMI 36.0-36.9,adult (Acute) Panniculitis (Acute) Hypoglycemia after GI (gastrointestinal) surgery (Acute) Sinusitis (Acute) Seasonal allergies (Acute) Opioid use disorder, moderate, in sustained remission (Acute) BMI 37.0-37.9, adult (Acute) Elevated liver enzymes (Acute) Cholelithiasis (Acute) Status post repair of paraesophageal diaphragmatic hernia (Acute) S/P laparoscopic sleeve gastrectomy (Acute) Diaphragmatic hernia (Acute) Opioid use disorder (Acute) BMI 39.0-39.9,adult (Acute) Obesity (Acute) Bipolar 2 disorder (Acute) Past Medical History Medical History Anxiety Asthma Bipolar 2 disorder Cholelithiasis Depression Diaphragmatic hernia Opioid dependence, uncomplicated Opioid use disorder PTSD (post-traumatic stress disorder) Steatosis, liver Family History Family History Father No problems noted. Mother No problems noted. Surgical History Surgical History History of sleeve gastrectomy Hx of bilateral breast reduction surgery Hx of section Hx of nasal septoplasty Obesity History of Problems with Anesthesia: No Social History Social History (Updated 04/12/22 @ 11:54 by Stacey Ann MD) Housing: Apartment Are you a primary care program director to a significant other at home: No Do you presently have visiting nurse or other home services: No Alcohol intake: former Patient Tobacco Use Status: Former Tobacco user Cigarette Packs Per Day: 0.5 Cigarettes Per Day: 10.0 Years Smoked: 20 Use of substances other than those prescribed or required for medical reasons: No Substance Use Type: Crack/Cocaine, Heroin and Marijuana Are you DNR?: No Advance Directives: No Advance Directives Information Provided: Yes service: No Current occupational status: unemployed Cognitive needs: No Hearing needs: No Vision needs: No Meds Allergies Allergy/AdvReac Type Severity Reaction Status Date / Time hydrocodone [From Vicodin] Allergy Intermediate hives Verified 04/05/22 15:28 clavulanic acid Allergy Mild Diarrhea Verified 04/05/22 15:28 [From Augmentin] Sulfa (Sulfonamide AdvReac Intermediate Itching Verified 04/05/22 15:28 Antibiotics) [SULFA(SULFONAMIDE ANTIBIOTICS)] sumatriptan [From IMITREX] AdvReac Mild Vomiting Verified 04/05/22 15:28 Home Medications Medication Instructions Recorded Confirmed Last Taken Type levonorgestrel 20 mcg/24 hours (8 intrauterine 04/05/22 04/05/22 Unknown History yrs) 52 mg intrauterine device (Mirena) diazepam 5 mg tablet 1 tab PO TID PRN anxiety 04/12/22 04/12/22 Unknown History docusate sodium 100 mg capsule 100 mg PO BID PRN Constipation 04/12/22 04/12/22 Unknown History paliperidone 3 mg tablet,extended 1 tab PO BEDTIME 04/12/22 04/12/22 Unknown History release 24 hr Exam Exam Date and Time: April 11, 2022 1006 Pertinent Lab Results Pertinent Lab Results: Laboratory Tests 04/06/22 04/06/22 12:20 12:20 WBC 5.2 Hgb 16.1 H Hct 46.2 Plt Count 238 Sodium 140 Potassium 4.4 Chloride 106 Carbon Dioxide 26 BUN 17 H Creatinine 0.88 Assessment and Plan Assessment Anesthesia Assessment: Chart Reviewed Final Anesthetic Review History of Problems with Anesthesia: No Documented by User: Stacey Ann MD 04/12/22 12:17 HPI - Anesthesia Eval Consult details Narrative: 37yo F for Cholecystectomy Laparoscopic s/p gastric sleeve 01/2020 with GA-ETT 7.5 Hx opioid use disorder - suboxone daily 09:56: Urine toxicology positive for cocaine. Will check 12 lead ekg and troponin. EKG: Sinus praveen 45. Otherwise normal High sensitivity troponin: <3.5ng/L Will proceed. PMFSH Active Problems Active Problems: All Active Problems (Updated 04/12/22 @ 10:45am by Stacey Ann MD) Symptomatic cholelithiasis (Acute) Abdominal pain (Acute) Cocaine use disorder (Acute) Bulging lumbar disc (Acute) Foraminal stenosis of lumbosacral region (Acute) Back pain (Acute) COVID-19 (Acute) Scoliosis of thoracic spine (Acute) Strain of cervical portion of both trapezius muscles (Acute) Encounter for annual routine gynecological examination (Acute) IUD surveillance (Acute) Coccyx pain (Acute) Status post rhinoplasty (Acute) Elevated LFTs (Acute) Encounter for IUD removal and reinsertion (Acute) Viral illness (Acute) Vitamin A deficiency (Acute) Spider varicose vein (Acute) BMI 24.0-24.9, adult (Acute) Orthostatic hypotension (Acute) Breast pain in female (Acute) Spotting (Acute) Wrist pain, right (Acute) Other long term acute care registered nurse (current) drug therapy (Acute) Encounter for annual routine gynecological examination (Acute) Breakthrough bleeding with IUD (Acute) Panniculitis (Acute) Hypoglycemia after GI (gastrointestinal) surgery (Acute) Sinusitis (Acute) Seasonal allergies (Acute) Opioid use disorder, moderate, in sustained remission (Acute) Elevated liver enzymes (Acute) Cholelithiasis (Acute) Status post repair of paraesophageal diaphragmatic hernia (Acute) S/P laparoscopic sleeve gastrectomy (Acute) Diaphragmatic hernia (Acute) Opioid use disorder (Acute) Bipolar 2 disorder (Acute) Past Medical History Medical History Anxiety Asthma Bipolar 2 disorder Cholelithiasis Depression Diaphragmatic hernia Opioid dependence, uncomplicated Opioid use disorder PTSD (post-traumatic stress disorder) Steatosis, liver Family History Family History Father No problems noted. Mother No problems noted. Family history of problems with anesthesia: No Surgical History Surgical History History of sleeve gastrectomy Hx of bilateral breast reduction surgery Hx of section Hx of nasal septoplasty Obesity Social History Social History (Updated 04/12/22 @ 11:54 by Stacey Ann MD) Housing: Apartment Are you a primary care program director to a significant other at home: No Do you presently have visiting nurse or other home services: No Alcohol intake: former Patient Tobacco Use Status: Former Tobacco user Cigarette Packs Per Day: 0.5 Cigarettes Per Day: 10.0 Years Smoked: 20 Use of substances other than those prescribed or required for medical reasons: No Substance Use Type: Crack/Cocaine, Heroin and Marijuana Are you DNR?: No Advance Directives: No Advance Directives Information Provided: Yes service: No Current occupational status: unemployed Cognitive needs: No Hearing needs: No Vision needs: No Meds Allergies Allergy/AdvReac Type Severity Reaction Status Date / Time hydrocodone [From Vicodin] Allergy Intermediate hives Verified 04/05/22 15:28 clavulanic acid Allergy Mild Diarrhea Verified 04/05/22 15:28 [From Augmentin] Sulfa (Sulfonamide AdvReac Intermediate Itching Verified 04/05/22 15:28 Antibiotics) [SULFA(SULFONAMIDE ANTIBIOTICS)] sumatriptan [From IMITREX] AdvReac Mild Vomiting Verified 04/05/22 15:28 Home Medications Medication Instructions Recorded Confirmed Last Taken Type levonorgestrel 20 mcg/24 hours (8 intrauterine 04/05/22 04/05/22 Unknown History yrs) 52 mg intrauterine device (Mirena) diazepam 5 mg tablet 1 tab PO TID PRN anxiety 04/12/22 04/12/22 Unknown History docusate sodium 100 mg capsule 100 mg PO BID PRN Constipation 04/12/22 04/12/22 Unknown History paliperidone 3 mg tablet,extended 1 tab PO BEDTIME 04/12/22 04/12/22 Unknown History release 24 hr Exam Height,Weight and Vital Signs: Height 5 ft 2 in Weight 58.06 kg Vital Signs Temp Pulse Resp BP Pulse Ox O2 Del Method 04/12/22 08:51 97.8 F 47 L 16 92/54 L 98 Room Air Pertinent Lab Results Pertinent Lab Results: Laboratory Tests 04/06/22 04/06/22 12:20 12:20 WBC 5.2 Hgb 16.1 H Hct 46.2 Plt Count 238 Sodium 140 Potassium 4.4 Chloride 106 Carbon Dioxide 26 BUN 17 H Creatinine 0.88 Lab Results 04/11/22 04/11/22 04/11/22 Range/Units 10:33 10:33 11:47 Sodium 140 (135-145) mmol/L Potassium 4.2 (3.3-5.1) mmol/L Chloride 106 (96-108) mmol/L Carbon Dioxide 26 (22-29) mmol/L Anion Gap 12 (12-20) BUN 17 H (9-16) mg/dL Creatinine 0.82 (0.5-1.4) mg/dL Estim Creat Clear Calc TNP Estimated GFR > 60 Random Glucose 102 (60-115) mg/dL Calcium 9.8 (8.4-10.2) mg/dL Troponin I High Sens (<3.5-17.0) ng/L Urine Test (NEGATIVE) Urine Opiates Screen (Not Detect) Urine Fentanyl Screen (Not Detect) Ur Barbiturates Screen (Not Detect) Ur Phencyclidine Scrn (Not Detect) Ur Amphetamines Screen (Not Detect) U Benzodiazepines Scrn (Not Detect) Urine Cocaine Screen (Not Detect) U Marijuana (THC) Screen (Not Detect) COVID-19 (NESSA) Negative (Negative) COVID-19 Clin Com See Note Blood Type A Positive Antibody Screen NEGATIVE 04/12/22 04/12/22 04/12/22 Range/Units 10:34 Unknown Unknown Sodium (135-145) mmol/L Potassium (3.3-5.1) mmol/L Chloride (96-108) mmol/L Carbon Dioxide (22-29) mmol/L Anion Gap (12-20) BUN (9-16) mg/dL Creatinine (0.5-1.4) mg/dL Estim Creat Clear Calc Estimated GFR Random Glucose (60-115) mg/dL Calcium (8.4-10.2) mg/dL Troponin I High Sens < 3.5 (<3.5-17.0) ng/L Urine Test NEGATIVE (NEGATIVE) Urine Opiates Screen Not Detected (Not Detect) Urine Fentanyl Screen Not Detected (Not Detect) Ur Barbiturates Screen Not Detected (Not Detect) Ur Phencyclidine Scrn Not Detected (Not Detect) Ur Amphetamines Screen Not Detected (Not Detect) U Benzodiazepines Scrn POSITIVE H (Not Detect) Urine Cocaine Screen POSITIVE H (Not Detect) U Marijuana (THC) Screen Not Detected (Not Detect) COVID-19 (NESSA) (Negative) COVID-19 Clin Com Blood Type Antibody Screen Airway Mallampati Class: II TM Dist: >3cm Neck ROM: Full Loose/Missing/Broken Teeth: No (Denies broken, loose, missing teeth) Heart: RRR Lungs: CTAB Assessment and Plan Assessment Anesthesia Assessment: Anesthesia Plan Discussed Final Anesthetic Review Family History of Problems with Anesthesia: No NPO: Yes ASA Class: III Final Preanesthetic Review: No Changes in Pt Med Stat, Meds/Allgs Chart Reviewed, Consent Obtained/Reviewed and Anes Risks/Benef Reviewed Patient Risk: Intermediate Procedure Risk: Intermediate Assessment/Block/Sedation in : Assess/Block/Sedation- Anesthetic Plan Anesthetic Plan: GA Disposition: Standard PACU
[2022-04-11 12:16] LABS: Anion Gap 12 (12-20); Blood Urea Nitrogen 17 mg/dL (9-16); Calcium 9.8 mg/dL (8.4-10.2); Carbon Dioxide 26 mmol/L (22-29); Chloride 106 mmol/L (96-108); Estimated Glomerular Filt Rate > 60; Glucose Random 102 mg/dL (60-115); Potassium 4.2 mmol/L (3.3-5.1); Sodium 140 mmol/L (135-145)
[2022-04-11 12:22] LABS: COVID-19 Test Negative (Negative); IDNOW Serial# 55D5AD1C
[2022-04-12] VITALS (7 sets, daily range): BP systolic 92–144; BP diastolic 54–99; PULSE 47–69; RESP 12–16; TEMP 36.4–36.6; O2SAT 98–100; BMI 23.3
--- NOTE | 2022-04-12 | ECG_ITS ---
Test Reason : PREOP Blood Pressure : / mmHG Vent. Rate : 045 BPM Atrial Rate : 045 BPM P-R Int : 156 ms QRS Dur : 088 ms QT Int : 446 ms P-R-T Axes : 059 055 035 degrees QTc Int : 385 ms Sinus bradycardia Otherwise normal ECG When compared with ECG of 29-JAN-2020 09:40, No significant change was found Referred By: Stacey Ann Electronically Signed By:Jordan Alejo
[2022-04-12 08:53] LABS: UPreg QC Valid YES; Urine Pregnancy NEGATIVE (NEGATIVE)
[2022-04-12] MEDS: Lactated Ringers 1,000 ML 100 ML IVCONT (09:28)
--- NOTE | 2022-04-12 09:31 | PC.NURSE ---
called lab for jarvis screening results. nothing is showing as pending. awaiting for a call back.
[2022-04-12 09:45] LABS: Amphetamine Screen Urine Not Detected (Not Detect); Barbiturates, Urine Not Detected (Not Detect); Benzodiazepines Screen Urine POSITIVE (Not Detect); Cannabinoid Screen Urine Not Detected (Not Detect); Cocaine Screen Urine POSITIVE (Not Detect); Fentanyl, urine Not Detected (Not Detect); Opiate Screen Urine Not Detected (Not Detect); Phencyclidine Screen Urine Not Detected (Not Detect)
--- NOTE | 2022-04-12 10:21 | PC.NURSE ---
MD EGANOUS BY BEDSIDE AND AWARE OF POSITIVE BENZO AND COCAINE. EKG BEING PERFORMED AND STAT TROP.
--- NOTE | 2022-04-12 10:31 | PC.NURSE ---
LABS BEING DRAWN AT THIS TIME
--- NOTE | 2022-04-12 11:04 | P.BOP_ITS ---
Brief Operative Note Date of Service: 04/12/22 Pre-op diagnosis: Symptomatic cholelithiasis Post-op diagnosis: same Procedure: PROCEDURE DATE: 04/12/2022 PREOPERATIVE DIAGNOSIS: Symptomatic cholelithiasis, mid epigastric and right upper quadrant abdominal pain POSTOPERATIVE DIAGNOSIS: Same as above. PROCEDURE: Laparoscopic cholecystectomy Surgeon: Nick Chen M.D.. Ph.D. Awning Hanger Helper: Sophie Todd PA-C Anesthesia: General endotracheal anesthesia Estimated blood loss: Minimal FINDINGS AND PROCEDURE: OPERATIVE INDICATIONS: The patient is a 37 year old female known to me who und erwent a laparoscopic sleeve gastrectomy in 2019. The patient had remarkable weight loss so far and had a completely uneventful recovery. The patient was doing very well but has recently been complaining of persistent mid epigastric and right upper quadrant abdominal pain which is mostly postprandial. Ultrasound of the abdomen and pelvis was consistent with cholelithiasis. Based on this information we recommended laparoscopic cholecystectomy, upper endoscopy to evaluate the patient's symptoms. Risks and complications of the surgery were discussed with the patient in advance particularly the possibility of conversion to an open surgery, bleeding, infection, obstruction, deep vein thrombosis or pulmonary embolism, bile leak or major bile duct injury that may require surgical intervention. The patient understood the risks and was in agreement with the plan. PROCEDURE: After informed consent was obtained by the patient, the patient was transferred to the Operating Room and was placed in the supine position. The patient was given preoperative antibiotics and after successful induction of general anesthesia, pneumatic compression devices were placed. The patient was then prepped and draped in the usual sterile manner and abdominal access was established with the Leola technique. The abdomen was insufflated with C02 to a pressure of 15 mmHg. A 5 mm Versi-step port was igor shanel, slightly to the right and superior from the umbilicus. The 5 mm camera was introduced. We inspected the area where the trocar had been placed and there was no injury. The patient was then placed initially in a steep reverse Trendelenburg position and three additional ports were placed, specifically a 12 mm Versi-step port just to the right of the midline below the xiphoid process and two 5 mm Versi-step ports at the right upper quadrant and right flank. At that point we positioned back the transverse colon and the omentum above the small intestine and then the patient was placed in a steep reverse Trendelenburg position tilted to the left side. The gallbladder was retracted cephalad and laterally. The patient had severe hepatomegaly which made exposure difficult. There were adhesions between the omentum and the gallbladder wall that were taken down. The peritoneal attachments of the gallbladder at the triangle of Calot posteriorly and anteriorly were taken down. The cystic duct and artery were both seen. The cystic duct was completely dissected free, skeletonized all the way to the infundibulum of the gallbladder. Besides the main cystic artery there were also 2 other small veins that I elected to dissect and clip them with one clip proximally and one distally, instead of cauterizing them. The cystic artery was bifurcating. I dissected the main stem of the artery and two clips were placed there. The distal clips were placed one at each bifurcation of the artery. The artery was divided at it's main stem just proximal from the bifurcation. Once we confirmed that there were no other structures were entering into the gallbladder, the cystic duct was also clipped with two clips proximally, one distally and was cut in-between. Using the electrocautery I slowly took down the gallbladder from the liver bed. Small areas of bleeding from the liver parenchyma were controlled with the cautery. After the gallbladder was completely detached from the liver bed, it was placed in an EndoCatch bag and was removed without difficulty from the xiphoid port. We then inspected the clips at the cystic duct and artery and were both in place. There was no active bleeding from the liver bed. At that point the patient was placed in supine position, we deflated the abdomen and we removed all ports under direct vision and no bleeding was noted from any of the port sites. The fascia of the 12 mm port was closed using a #1 Polysorb suture. 30cc of Ropivacaine with 10mg of Dexamethasone were used to infiltrate the fascial closure as well as all skin incisions. A total of 5ml of Zynrelef was appied in the Leola wound. The wounds were irrigated with saline mixed with antibiotic solution and then the skin was closed with 4-0 Maxon subcuticular sutures antibiotic-coated. Steri-strips and OpSites were used to cover all incisions. The patient extubated and was transferred in stable condition to the Recovery Room for further care. I was present and performed all steps of the procedure. Ms. Todd was the classroom assistant. There were no residents to assist with this case. Nick Chen M.D., Ph.D., F.A.C.S. Surgeon: Gilbert Chen MD Anesthesia: GETA, local and other (TAP block and 5ml Zynrelef) Was an Awning Hanger Helper used for this Procedure?: No Awning Hanger Helper: Sophie Todd Estimated blood loss (mL): 10 IV fluids (mL): 1,500 Urine output (mL): 0 (No James to record output) Pathology: other (Gallbladder) Condition: stable Disposition: PACU
--- NOTE | 2022-04-12 11:27 | PC.NURSE ---
JUST CALLED FOR AN UPDATE ON TROP RESULTS AND LAB STATED 15 MORE MINUTES.
[2022-04-12 11:44] LABS: Troponin-I High Sensitivity < 3.5 ng/L (<3.5-17.0)
== END 2022-04-12 15:58 | disposition home or self-care (01) ==
PROVIDERS: Anesthesiology; Hospitalist; Nurse Practitioner; Physician Assistant Surgical; PCP Family Medicine; Visit Provider Surgery
PROC: 0FT44ZZ Resection of Gallbladder, Percutaneous Endoscopic Approach (ICD-10-PCS; CPT 47562; principal; 2022-04-12 10:30)
DX: K80.10 Calculus of gallbladder with chronic cholecystitis without obstruction (principal); K82.8 Other specified diseases of gallbladder; R59.9 Enlarged lymph nodes, unspecified; R16.0 Hepatomegaly, not elsewhere classified; Z98.84 Bariatric surgery status; Z20.822 Contact with and (suspected) exposure to COVID-19; Z88.1 Allergy status to other antibiotic agents; Z88.2 Allergy status to sulfonamides; Z88.8 Allergy status to other drugs, medicaments and biological substances
CPT/HCPCS: 47562; 36415; 80048; 80307; 81025; 84484; 86850; 86900; 86901; 87635; 88304; 93005; C9088; J0131; J0690; J1100; J1170; J2250; J2405; J2795; J3010

== ENCOUNTER → 2022-04-19 11:32 | Outpatient (BNVA) | payer OTHER, SELFPAY | PROVIDERS: PCP Family Medicine; Referring Provider Family Medicine; Visit Provider Physician Assistant Surgical | DX: Z13.89 Encounter for screening for other disorder (principal) ==

== ENCOUNTER → 2022-04-26 13:03 | Outpatient (BNVA) | payer OTHER, SELFPAY | PROVIDERS: PCP Family Medicine; Visit Provider Physician Assistant Surgical | DX: Z13.89 Encounter for screening for other disorder (principal) ==

== ENCOUNTER → 2022-05-03 14:43 | Outpatient (BNVA) | payer OTHER, SELFPAY | PROVIDERS: PCP Family Medicine; Referring Provider Family Medicine; Visit Provider Physician Assistant Surgical | DX: Z13.89 Encounter for screening for other disorder (principal) ==

== ENCOUNTER 2022-05-09 12:11 | Outpatient (REF) | payer OTHER, SELFPAY ==
[2022-05-09 12:27] LABS: MANUAL DIFF FLAG NO
[2022-05-09 13:02] LABS: Basophils Percent Auto 0.6 % (0-2); Eosinophils Absolute Auto 0.2 X10*3/uL (0.0-0.4); Eosinophils Percent Auto 3.8 % (0-4); Hematocrit 41.9 % (37.0-47.0); Hemoglobin 14.3 g/dl (12.0-16.0); Lymphocytes Absolute Auto 2.1 X10*3/uL (1.2-4.9); Lymphocytes Percent Auto 43.9 % (20-40); Mean Corpuscular HGB Conc 34.1 g/dl (31.0-35.0); Mean Corpuscular Hemoglobin 29.9 pg (27.0-33.0); Mean Corpuscular Volume 87.5 fL (80.0-98.0); Mean Platelet Volume 9.7 fL (9.4-12.3); Monocytes Absolute Auto 0.3 X10*3/uL (0.1-1.2); Monocytes Percent Auto 6.3 % (2-11); Neutrophils Absolute Auto 2.2 x10*3/uL (2.0-8.3); Neutrophils Percent Auto 45.4 % (45-73); Platelet Count 243 X10*3/uL (160-400); Red Blood Count 4.79 X10*6/uL (4.20-5.50); White Blood Count 4.8 X10*3/uL (4.8-10.8)
[2022-05-09 13:25] LABS: Alanine Aminotransferase 8 U/L (0-31); Albumin Level 4.3 g/dL (3.5-5.0); Alkaline Phosphatase 83 U/L (39-117); Amylase 45 U/L (28-100); Anion Gap 13 (12-20); Aspartate Amino Transferase 14 U/L (5-31); Bilirubin Direct 0.4 mg/dL (0.0-0.5); Bilirubin Total 1.3 mg/dL (0.0-1.0); Blood Urea Nitrogen 10 mg/dL (9-16); Calcium 9.9 mg/dL (8.4-10.2); Carbon Dioxide 25 mmol/L (22-29); Chloride 108 mmol/L (96-108); Estimated Glomerular Filt Rate > 60; Glucose Random 95 mg/dL (60-115); Lipase 17 U/L (8-78); Potassium 4.3 mmol/L (3.3-5.1); Sodium 142 mmol/L (135-145); Total Protein 6.3 g/dL (6.5-8.0)
== END 2022-05-09 12:12 | disposition home or self-care (01) ==
LOC: HO.LAB 12:11
PROVIDERS: PCP Family Medicine; Visit Provider Physician Assistant Surgical
DX: R10.9 Unspecified abdominal pain (principal); F14.10 Cocaine abuse, uncomplicated
CPT/HCPCS: 36415; 80048; 80076; 82150; 83690; 85025

== ENCOUNTER → 2022-05-10 13:33 | Outpatient (BNVA) | payer OTHER, SELFPAY | PROVIDERS: PCP Family Medicine; Visit Provider Nurse Practitioner Psychiatric/Mental Health | DX: Z51.81 Encounter for therapeutic drug level monitoring (principal); F11.21 Opioid dependence, in remission | CPT/HCPCS: 99212 ==

== ENCOUNTER → 2022-05-12 08:26 | Outpatient (BNVA) | payer OTHER, SELFPAY | PROVIDERS: PCP Family Medicine; Visit Provider Physician Assistant Surgical | DX: Z13.89 Encounter for screening for other disorder (principal) ==

== ENCOUNTER → 2022-06-09 09:00 | Outpatient (BNVA) | payer OTHER, SELFPAY | PROVIDERS: PCP Family Medicine; Visit Provider Nurse Practitioner Psychiatric/Mental Health | DX: F11.21 Opioid dependence, in remission (principal) | CPT/HCPCS: 99212 ==

== ENCOUNTER → 2022-07-04 09:00 | Outpatient (BNVA) | payer OTHER, SELFPAY | PROVIDERS: PCP Family Medicine; Visit Provider Nurse Practitioner Psychiatric/Mental Health | DX: F11.21 Opioid dependence, in remission (principal); F14.10 Cocaine abuse, uncomplicated; F12.20 Cannabis dependence, uncomplicated; F31.81 Bipolar II disorder; F43.10 Post-traumatic stress disorder, unspecified; F41.8 Other specified anxiety disorders; Z90.3 Acquired absence of stomach [part of] | CPT/HCPCS: 99212 ==

== ENCOUNTER → 2022-08-22 09:23 | Outpatient (BNVA) | payer OTHER, SELFPAY | PROVIDERS: PCP Family Medicine; Visit Provider Nurse Practitioner Psychiatric/Mental Health | DX: F11.20 Opioid dependence, uncomplicated (principal); F14.20 Cocaine dependence, uncomplicated; Z51.81 Encounter for therapeutic drug level monitoring; Z79.899 Other long term (current) drug therapy | CPT/HCPCS: 80305; 99212 ==

== ENCOUNTER 2022-08-22 12:05 | Outpatient (REF) | payer OTHER, SELFPAY ==
[2022-08-22 12:41] LABS: Fentanyl, urine Not Detected (Not Detect)
== END 2022-08-22 12:06 | disposition home or self-care (01) ==
LOC: HO.LNP 12:05
PROVIDERS: Visit Provider Nurse Practitioner Psychiatric/Mental Health
DX: F11.20 Opioid dependence, uncomplicated (principal); F14.10 Cocaine abuse, uncomplicated; Z51.81 Encounter for therapeutic drug level monitoring
CPT/HCPCS: 80307

== ENCOUNTER → 2022-09-05 08:57 | Outpatient (BNVA) | payer OTHER, SELFPAY | PROVIDERS: PCP Family Medicine; Visit Provider Nurse Practitioner Psychiatric/Mental Health | DX: Z51.81 Encounter for therapeutic drug level monitoring (principal) ==

== ENCOUNTER → 2022-09-19 08:51 | Outpatient (BNVA) | payer OTHER, SELFPAY | PROVIDERS: PCP Family Medicine; Visit Provider Nurse Practitioner Psychiatric/Mental Health | DX: Z51.81 Encounter for therapeutic drug level monitoring (principal) ==

== ENCOUNTER → 2022-09-25 15:36 | Outpatient (BNVA) | payer OTHER, SELFPAY | PROVIDERS: PCP Family Medicine; Visit Provider Nurse Practitioner Psychiatric/Mental Health | DX: Z51.81 Encounter for therapeutic drug level monitoring (principal); F11.20 Opioid dependence, uncomplicated; F14.20 Cocaine dependence, uncomplicated | CPT/HCPCS: 80305; 99212 ==

== ENCOUNTER 2022-10-10 09:06 | Outpatient (AMB) | payer OTHER, SELFPAY ==
--- NOTE | 2022-10-10 09:06 | MHC.AM.SUB ---
Intake Intake Visit Reasons: mat visit Allergies hydrocodone [From Vicodin] Allergy (Intermediate, Verified 09/25/22 15:43) hives clavulanic acid [From Augmentin] Allergy (Mild, Verified 09/25/22 15:43) Diarrhea Sulfa (Sulfonamide Antibiotics) [SULFA(SULFONAMIDE ANTIBIOTICS)] Adverse Reaction (Intermediate, Verified 09/25/22 15:43) Itching sumatriptan [From IMITREX] Adverse Reaction (Mild, Verified 09/25/22 15:43) Vomiting HPI mat visit HPI Details Patient presents for [facility] treatment follow up via telehealth Reports no use of cocaine since she went on vacation on September 30. Bright affect, feeling hopeful Reporting some restlessness with her legs while on vacation, confirmed that cocaine likely contained fentanyl. Reviewed benefits to mood stabilization with no stimulant use. [facility] Medical History Anxiety Asthma Bipolar 2 disorder Cholelithiasis Depression Diaphragmatic hernia Opioid dependence, uncomplicated Opioid use disorder PTSD (post-traumatic stress disorder) Steatosis, liver Surgical History History of sleeve gastrectomy Hx of bilateral breast reduction surgery Hx of section Hx of nasal septoplasty Obesity Family History Father No problems noted. Mother No problems noted. Social History Housing: Apartment Are you a primary cattle care worker to a significant other at home: No Do you presently have visiting nurse or other home services: No Alcohol intake: former Patient Tobacco Use Status: Former Tobacco user Cigarette Packs Per Day: 0.5 Cigarettes Per Day: 10.0 Years Smoked: 20 Substance Use Type: Crack/Cocaine, Heroin and Marijuana service: No Current occupational status: unemployed Cognitive needs: No Hearing needs: No Vision needs: No Female Reproductive History Menstrual Age of Menarche: 10 Review of Systems Const Reports as per HPI and Reports no additional complaints Assessment & Plan Assessment & Plan (1) Opioid use disorder: Code(s): F11.99 - Opioid use, unspecified with unspecified opioid-induced disorder Plan: Continue Suboxone at current dose Risk reduction discussion Follow-up November 03 in office (2) Cocaine use disorder, severe, dependence: Code(s): F14.20 - Cocaine dependence, uncomplicated Medications: Changed From buprenorphine-naloxone 8-2 mg (Suboxone) 1 film sublingual BID 20 ea 0RF To buprenorphine-naloxone 8-2 mg (Suboxone) 1 film sublingual BID 24 days 48 ea 0RF Telehealth Telehealth Location of provider rendering services: practice address Location of patient: other Patient Identification confirmed using: Name, : Yes Telehealth method: voice only Patient verbally consented to treatment: Yes Patient verbally consented to billing insurance company: Yes Coding Level of Care Code Est Pt Level 3 (14555) Diagnoses Opioid use disorder F11.99 Cocaine use disorder, severe, dependence F14.20
== END 2022-10-10 09:38 | disposition home or self-care (01) ==
LOC: HO.HCC 09:06
PROVIDERS: PCP Family Medicine; Visit Provider Nurse Practitioner Psychiatric/Mental Health
DX: F11.99 Opioid use, unspecified with unspecified opioid-induced disorder (principal); F14.20 Cocaine dependence, uncomplicated
CPT/HCPCS: 99213

== ENCOUNTER → 2022-10-10 09:06 | Outpatient (BNVA) | payer OTHER, SELFPAY | PROVIDERS: PCP Family Medicine; Visit Provider Nurse Practitioner Psychiatric/Mental Health | DX: F14.20 Cocaine dependence, uncomplicated (principal); F11.20 Opioid dependence, uncomplicated; F12.20 Cannabis dependence, uncomplicated; F31.81 Bipolar II disorder; F43.10 Post-traumatic stress disorder, unspecified; F41.8 Other specified anxiety disorders; Z51.81 Encounter for therapeutic drug level monitoring; Z79.899 Other long term (current) drug therapy | CPT/HCPCS: 99212 ==

== ENCOUNTER 2022-11-16 15:08 | Outpatient (AMB) | payer OTHER, SELFPAY ==
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
[2022-11-16 15:13] VITALS: BP 140/98; PULSE 99; O2SAT 98
== END 2022-11-16 16:26 | disposition home or self-care (01) ==
LOC: HO.HCC 15:08
PROVIDERS: PCP Family Medicine; Visit Provider Nurse Practitioner Psychiatric/Mental Health
DX: F11.99 Opioid use, unspecified with unspecified opioid-induced disorder (principal); F14.20 Cocaine dependence, uncomplicated
CPT/HCPCS: 99214

== ENCOUNTER → 2022-11-16 15:08 | Outpatient (BNVA) | payer OTHER, SELFPAY | PROVIDERS: PCP Family Medicine; Visit Provider Nurse Practitioner Psychiatric/Mental Health | DX: F11.20 Opioid dependence, uncomplicated (principal); F14.20 Cocaine dependence, uncomplicated | CPT/HCPCS: 99212 ==

== ENCOUNTER 2023-01-05 10:19 | Outpatient (AMB) | payer OTHER, SELFPAY ==
--- NOTE | 2023-01-05 10:22 | A.OFFVIS_ITS ---
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 Allergies hydrocodone [From Vicodin] Allergy (Intermediate, Verified 01/05/23 10:26) hives clavulanic acid [From Augmentin] Allergy (Mild, Verified 01/05/23 10:26) Diarrhea Sulfa (Sulfonamide Antibiotics) [SULFA(SULFONAMIDE ANTIBIOTICS)] Adverse Reaction (Intermediate, Verified 01/05/23 10:26) Itching sumatriptan [From IMITREX] Adverse Reaction (Mild, Verified 01/05/23 10:26) Vomiting Do you need a note to return to daycare/school/sports/work: No HPI mat visit HPI Details Patient presents for BRITTNEE treatment follow up Currently prescribed Suboxone 8mg BID Has been smoking crack cocaine daily--reports she has been reducing her use Plans to call [facility] for admission to [facility] Medical History Anxiety Asthma Bipolar 2 disorder Cholelithiasis Depression Diaphragmatic hernia Opioid dependence, uncomplicated Opioid use disorder PTSD (post-traumatic stress disorder) Steatosis, liver Surgical History History of sleeve gastrectomy Hx of bilateral breast reduction surgery Hx of section Hx of nasal septoplasty Obesity Family History Father No problems noted. Mother No problems noted. Social History Housing: Apartment Are you a primary critical care nurse practitioner to a significant other at home: No Do you presently have visiting nurse or other home services: No Alcohol intake: former Patient Tobacco Use Status: Former Tobacco user Cigarette Packs Per Day: 0.5 Cigarettes Per Day: 10.0 Years Smoked: 20 Substance Use Type: Crack/Cocaine, Heroin and Marijuana service: No Current occupational status: unemployed Cognitive needs: No Hearing needs: No Vision needs: No Female Reproductive History Menstrual Age of Menarche: 10 Review of Systems Const Reports as per HPI and Reports difficulty sleeping Psych Reports anxiety and Reports anhedonia Physical Exam Vital Signs: Last Vital Signs Pulse 103 H 01/05/23 10:25 BP 136/84 01/05/23 10:25 Pulse Ox 96 01/05/23 10:25 Oxygen Delivery Method Room Air 01/05/23 10:25 Const General: cooperative, healthy appearing, comfortable, no acute distress and alert Nutritional Appearance: well nourished Orientation/consciousness: patient oriented x3 Limitations: no limitations Neuro General: patient oriented x3 Psych Appearance: grossly normal Mental Status: mental status grossly normal Speech and movement: Normal speech and movement present Affect: Anxious affect present Attitude: cooperative Thought process: Normal thought process present Thought content: Normal thought content present Insight: Limited insight present (Psych) Judgement: Fair judgement present (Psych) Assessment & Plan Assessment & Plan (1) Opioid use disorder: Code(s): F11.99 - Opioid use, unspecified with unspecified opioid-induced disorder Plan: * Continue Suboxone at current dose * Risk reduction discussion * Follow-up 2 weeks (2) Cocaine use disorder, severe, dependence: Code(s): F14.20 - Cocaine dependence, uncomplicated Plan: * topomax 25mg BID Medications: New topiramate 25 mg orally one tab twice daily for one week, then increase to two tabs twice a day; 120 tabs 0RF Refilled buprenorphine-naloxone 8-2 mg (Suboxone) 1 film sublingual BID 28 ea 0RF Coding Level of Care Code Est Pt Level 4 (43552) Diagnoses Opioid use disorder F11.99 Cocaine use disorder, severe, dependence F14.20
[2023-01-05 10:25] VITALS: BP 136/84; PULSE 103; O2SAT 96
== END 2023-01-05 10:46 | disposition home or self-care (01) ==
PROVIDERS: PCP Family Medicine; Visit Provider Nurse Practitioner Psychiatric/Mental Health
DX: F11.99 Opioid use, unspecified with unspecified opioid-induced disorder (principal); F14.20 Cocaine dependence, uncomplicated
CPT/HCPCS: 99214

== ENCOUNTER → 2023-01-05 10:19 | Outpatient (BNVA) | payer OTHER, SELFPAY | PROVIDERS: PCP Family Medicine; Visit Provider Nurse Practitioner Psychiatric/Mental Health | DX: Z51.81 Encounter for therapeutic drug level monitoring (principal); F11.20 Opioid dependence, uncomplicated; F14.20 Cocaine dependence, uncomplicated | CPT/HCPCS: 99212 ==

== ENCOUNTER → 2023-01-19 11:30 | Outpatient (BNVA) | payer OTHER, SELFPAY | PROVIDERS: PCP Family Medicine; Visit Provider Nurse Practitioner Psychiatric/Mental Health ==

== ENCOUNTER 2023-04-16 15:04 | Outpatient (AMB) | payer OTHER, SELFPAY ==
--- NOTE | 2023-04-16 15:06 | A.OFFVISCC_ITS ---
Intake Intake Visit Reasons: MAT Visit Allergies hydrocodone [From Vicodin] Allergy (Intermediate, Verified 01/19/23 11:37) hives clavulanic acid [From Augmentin] Allergy (Mild, Verified 01/19/23 11:37) Diarrhea Sulfa (Sulfonamide Antibiotics) [SULFA(SULFONAMIDE ANTIBIOTICS)] Adverse Reaction (Intermediate, Verified 01/19/23 11:37) Itching sumatriptan [From IMITREX] Adverse Reaction (Mild, Verified 01/19/23 11:37) Vomiting HPI MAT Visit HPI Details Patient presents for visits via telehealth Currently sick with a cold and pink eye Discussed most recent admission to [facility] facility. Patient stating it was a negative experience and she left after about a week Reports no cocaine use in weeks. Living with her mother and feeling trapped because she has no transportation of her own. Acknowledges that lack of transportation is likely also contributing to no cocaine use Requesting to decrease dose to 4mg QD PFSH Medical History Anxiety Asthma Bipolar 2 disorder Cholelithiasis Depression Diaphragmatic hernia Opioid dependence, uncomplicated Opioid use disorder PTSD (post-traumatic stress disorder) Steatosis, liver Surgical History History of sleeve gastrectomy Hx of bilateral breast reduction surgery Hx of section Hx of nasal septoplasty Obesity Family History Father No problems noted. Mother No problems noted. Social History Housing: Apartment Are you a primary childcare provider to a significant other at home: No Do you presently have visiting nurse or other home services: No Alcohol intake: former Patient Tobacco Use Status: Former Tobacco user Cigarette Packs Per Day: 0.5 Cigarettes Per Day: 10.0 Years Smoked: 20 Substance Use Type: Crack/Cocaine, Heroin and Marijuana service: No Current occupational status: unemployed Cognitive needs: No Hearing needs: No Vision needs: No Female Reproductive History Menstrual Age of Menarche: 10 Review of Systems Const Reports as per HPI and Reports difficulty sleeping Psych Reports anxiety, Reports depression, Reports difficulty concentrating and Reports irritability Assessment & Plan Assessment & Plan (1) Opioid use disorder: Code(s): F11.99 - Opioid use, unspecified with unspecified opioid-induced disorder Plan: * Suboxone dose decreased to 4mg QD, per patient request * Risk reduction discussion * Follow-up 2 weeks (2) Cocaine use disorder, severe, dependence: Code(s): F14.20 - Cocaine dependence, uncomplicated Plan: * topomax 25mg BID --unclear if she is still taking this Medications: New buprenorphine-naloxone 4-1 mg (Suboxone) 1 film sublingual Q24H 10 ea 0RF Discontinued buprenorphine-naloxone 8-2 mg (Suboxone) Discontinued Reason: Doctor's Order 1 film sublingual BID 28 ea 0RF Telehealth Telehealth Location of provider rendering services: practice address Location of patient: address on file Patient Identification confirmed using: Name, : Yes Telehealth method: voice only Patient verbally consented to treatment: Yes Patient verbally consented to billing insurance company: Yes Coding Level of Care Code Tele Est Pt Level 4 (06291) Diagnoses Opioid use disorder F11.99 Cocaine use disorder, severe, dependence F14.20 Time Spent (min) 35
== END 2023-04-16 15:36 | disposition home or self-care (01) ==
PROVIDERS: PCP Family Medicine; Visit Provider Nurse Practitioner Psychiatric/Mental Health
DX: F11.90 Opioid use, unspecified, uncomplicated (principal); F14.20 Cocaine dependence, uncomplicated
CPT/HCPCS: 99214

== ENCOUNTER → 2023-04-16 15:04 | Outpatient (BNVA) | payer OTHER, SELFPAY | PROVIDERS: PCP Family Medicine; Visit Provider Nurse Practitioner Psychiatric/Mental Health ==

== ENCOUNTER 2023-05-04 15:10 | Outpatient (AMB) | payer OTHER, SELFPAY ==
--- NOTE | 2023-05-04 15:14 | MHC.AM.SUB ---
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 Allergies hydrocodone [From Vicodin] Allergy (Intermediate, Verified 05/04/23 15:19) hives clavulanic acid [From Augmentin] Allergy (Mild, Verified 05/04/23 15:19) Diarrhea Sulfa (Sulfonamide Antibiotics) [SULFA(SULFONAMIDE ANTIBIOTICS)] Adverse Reaction (Intermediate, Verified 05/04/23 15:19) Itching sumatriptan [From IMITREX] Adverse Reaction (Mild, Verified 05/04/23 15:19) Vomiting Do you need a note to return to daycare/school/sports/work: No HPI MAT Visit HPI Details Patient presents for BRITTNEE treatment follow up Reports she has used cocaine once since leaving treatment -does not seen to be willing to share actual use at this time. Presentation and affect more consistent with ongoing stimulant use. Appearing extremely thin. Living with her mother--unclear dynamic, patient reports she does not let her go anywhere--but then she also shares stories of times she has been out of the house alone Plans to start working for a [employer] agency soon PFS Medical History Anxiety Asthma Bipolar 2 disorder Cholelithiasis Depression Diaphragmatic hernia Opioid dependence, uncomplicated Opioid use disorder PTSD (post-traumatic stress disorder) Steatosis, liver Surgical History History of sleeve gastrectomy Hx of bilateral breast reduction surgery Hx of section Hx of nasal septoplasty Obesity Family History Father No problems noted. Mother No problems noted. Social History Housing: Apartment Are you a primary prompt care rn to a significant other at home: No Do you presently have visiting nurse or other home services: No Alcohol intake: former Patient Tobacco Use Status: Former Tobacco user Cigarette Packs Per Day: 0.5 Cigarettes Per Day: 10.0 Years Smoked: 20 Substance Use Type: Crack/Cocaine, Heroin and Marijuana service: No Current occupational status: unemployed Cognitive needs: No Hearing needs: No Vision needs: No Female Reproductive History Menstrual Age of Menarche: 10 Review of Systems Const Reports as per HPI and Reports no additional complaints Physical Exam Vital Signs: Last Vital Signs Pulse 133 H 05/04/23 15:18 BP 140/86 H 05/04/23 15:18 Pulse Ox 97 05/04/23 15:18 Oxygen Delivery Method Room Air 05/04/23 15:18 Const General: cooperative and well groomed Nutritional Appearance: underweight Orientation/consciousness: patient oriented x3 Limitations: no limitations Neuro General: patient oriented x3 Psych Appearance: well kempt Speech and movement: Clear speech present Affect: Blunted affect present Attitude: cooperative Thought process: Normal thought process present Thought content: Normal thought content present Insight: Limited insight present (Psych) Judgement: Fair judgement present (Psych) Assessment & Plan Assessment & Plan (1) Cocaine use disorder, severe, dependence: Code(s): F14.20 - Cocaine dependence, uncomplicated Plan: continue topomax risk reduction discussion (2) Opioid use disorder, moderate, in sustained remission: Code(s): F11.21 - Opioid dependence, in remission Plan: continue suboxone at current dose follow up one week telehealth Medications: Refilled buprenorphine-naloxone 8-2 mg (Suboxone) 1 film buccal DAILY 14 ea 0RF Coding Level of Care Code Est Pt Level 4 (92306) Diagnoses Cocaine use disorder, severe, dependence F14.20 Opioid use disorder, moderate, in sustained remission F11.21
[2023-05-04 15:18] VITALS: BP 140/86; PULSE 133; O2SAT 97
== END 2023-05-04 15:52 | disposition home or self-care (01) ==
PROVIDERS: PCP Family Medicine; Visit Provider Nurse Practitioner Psychiatric/Mental Health
DX: F14.20 Cocaine dependence, uncomplicated (principal); F11.21 Opioid dependence, in remission
CPT/HCPCS: 99214

== ENCOUNTER → 2023-05-04 15:10 | Outpatient (BNVA) | payer OTHER, SELFPAY | PROVIDERS: PCP Family Medicine; Visit Provider Nurse Practitioner Psychiatric/Mental Health ==

== ENCOUNTER 2023-05-31 09:04 | Outpatient (AMB) | payer OTHER, SELFPAY ==
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
== END 2023-05-31 09:34 | disposition home or self-care (01) ==
PROVIDERS: PCP Family Medicine; Visit Provider Nurse Practitioner Psychiatric/Mental Health
DX: F15.90 Other stimulant use, unspecified, uncomplicated (principal)
CPT/HCPCS: 99214

== ENCOUNTER → 2023-05-31 09:04 | Outpatient (BNVA) | payer OTHER, SELFPAY | PROVIDERS: PCP Family Medicine; Visit Provider Nurse Practitioner Psychiatric/Mental Health ==

== ENCOUNTER 2023-06-11 15:59 | Outpatient (AMB) | payer OTHER, SELFPAY ==
--- NOTE | 2023-06-11 16:00 | A.OFFVISCC_ITS ---
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 Allergies hydrocodone [From Vicodin] Allergy (Intermediate, Verified 06/11/23 16:10) hives clavulanic acid [From Augmentin] Allergy (Mild, Verified 06/11/23 16:10) Diarrhea Sulfa (Sulfonamide Antibiotics) [SULFA(SULFONAMIDE ANTIBIOTICS)] Adverse Reaction (Intermediate, Verified 06/11/23 16:10) Itching sumatriptan [From IMITREX] Adverse Reaction (Mild, Verified 06/11/23 16:10) Vomiting Do you need a note to return to daycare/school/sports/work: No HPI MAT HPI Details Patient presents for follow up Affect much calmer than previous visit Patient apologetic for previous visit She reports she recently had an overdose Used 1-2 bags of heroin/fentanyl would like to increase subxone dose to 12mg and plans to split to 6mg BID Would like to trail Brixadi Reports cocaine use continues to be an issue considering going back to [facility] [place] Medical History Anxiety Asthma Bipolar 2 disorder Cholelithiasis Depression Diaphragmatic hernia Opioid dependence, uncomplicated Opioid use disorder PTSD (post-traumatic stress disorder) Steatosis, liver Surgical History History of sleeve gastrectomy Hx of bilateral breast reduction surgery Hx of section Hx of nasal septoplasty Obesity Family History Father No problems noted. Mother No problems noted. Social History Housing: Apartment Are you a primary med care manager to a significant other at home: No Do you presently have visiting nurse or other home services: No Alcohol intake: former Patient Tobacco Use Status: Former Tobacco user Cigarette Packs Per Day: 0.5 Cigarettes Per Day: 10.0 Years Smoked: 20 Substance Use Type: Crack/Cocaine, Heroin and Marijuana service: No Current occupational status: unemployed Cognitive needs: No Hearing needs: No Vision needs: No Female Reproductive History Menstrual Age of Menarche: 10 Review of Systems Const Reports as per HPI and Reports no additional complaints Physical Exam Vital Signs: Last Vital Signs Pulse 76 06/11/23 16:08 BP 110/74 06/11/23 16:08 Pulse Ox 96 06/11/23 16:08 Oxygen Delivery Method Room Air 06/11/23 16:08 Const General: cooperative, alert, awake and well groomed Nutritional Appearance: thin and underweight Psych Appearance: well kempt Assessment & Plan Assessment & Plan (1) Stimulant use disorder: Code(s): F15.90 - Other stimulant use, unspecified, uncomplicated Plan: * considering [facility]S admission (2) Opioid use disorder: Code(s): F11.99 - Opioid use, unspecified with unspecified opioid-induced disorder Plan: * suboxone dose increased to 12mg QD * Brixadi ordered per patient request--previously on Sublocade and pain associated with injection is what she identifies as major barrier to continuing with it. Medications: New buprenorphine-naloxone 12-3 mg (Suboxone) 1 film buccal Q24H 21 ea 0RF buprenorphine ER (Brixadi Monthly) 96 mg (0.27 mL) subcut Q28D 0.27 mL 5RF Discontinued buprenorphine-naloxone 8-2 mg (Suboxone) Discontinued Reason: Doctor's Order 1 film buccal DAILY 10 ea 0RF Coding Level of Care Code Est Pt Level 4 (21215) Diagnoses Stimulant use disorder F15.90 Opioid use disorder F11.99
[2023-06-11 16:08] VITALS: BP 110/74; PULSE 76; O2SAT 96
== END 2023-06-11 16:36 | disposition home or self-care (01) ==
PROVIDERS: PCP Family Medicine; Visit Provider Nurse Practitioner Psychiatric/Mental Health
DX: F11.90 Opioid use, unspecified, uncomplicated (principal); F15.90 Other stimulant use, unspecified, uncomplicated
CPT/HCPCS: 99214

== ENCOUNTER → 2023-06-11 15:59 | Outpatient (BNVA) | payer OTHER, SELFPAY | PROVIDERS: PCP Family Medicine; Visit Provider Nurse Practitioner Psychiatric/Mental Health ==

== ENCOUNTER 2023-06-27 10:35 | Outpatient (AMB) | payer OTHER, SELFPAY ==
--- NOTE | 2023-06-27 13:23 | AM.OFFVISNUR ---
Intake Intake Visit Reasons: Brix Inj Allergies hydrocodone [From Vicodin] Allergy (Intermediate, Verified 06/11/23 16:10) hives clavulanic acid [From Augmentin] Allergy (Mild, Verified 06/11/23 16:10) Diarrhea Sulfa (Sulfonamide Antibiotics) [SULFA(SULFONAMIDE ANTIBIOTICS)] Adverse Reaction (Intermediate, Verified 06/11/23 16:10) Itching sumatriptan [From IMITREX] Adverse Reaction (Mild, Verified 06/11/23 16:10) Vomiting Nursing Note Patient to clinic today for initial brixadi injection. Education provided and patient verbally agrees to understanding. Patient alert and oriented x4, in good spirits, smiling and very talkative today, states Im really in a camp though when asking further medical questions. I educated patient about safe sex practice and encouraged her to see a community clinic and provided names of clinics for testing. patient had mentioned being sexually active and concerns of something going on . Will follow up with provider next visit, and see me for injection. Office Meds buprenorphine 96 mg/0.27 mL solution,exten.rel.subcutaneous syringe Performing Provider: Brianda Sandoval NP Performing Location: [facility] [place] [facility] Administered by: Jocelyne Mann RN on 06/27/23 13:28 Dose Route Admin Location Dispensed Lot Number Expiration Date [facility] State Archivist 96 mg subcut KARMA 0.27 mL [id number] 01/30/25 54410-949-13 [employer]. Coding Assessment & Plan Assessment & Plan Orders: Orders AMB Buprenorphine Injection - Patient Supplied Today F11.21 - Opioid dependence, in remission
== END 2023-06-27 11:10 | disposition home or self-care (01) ==
PROVIDERS: PCP Family Medicine
DX: F11.21 Opioid dependence, in remission (principal)

== ENCOUNTER → 2023-06-27 10:35 | Outpatient (BNVA) | payer OTHER, SELFPAY | PROVIDERS: PCP Family Medicine; Visit Provider Nurse Practitioner Family | DX: F11.21 Opioid dependence, in remission (principal) | CPT/HCPCS: 96372; C9154 ==

== ENCOUNTER 2023-07-21 21:52 | Emergency (ER) | payer OTHER, SELFPAY ==
[2023-07-21 21:59] VITALS: BP 110/78; PULSE 90; O2SAT 98
[2023-07-21 22:04] VITALS: BP 121/85; PULSE 96; RESP 17; TEMP 36.8; O2SAT 99; BMI 19.6
[2023-07-21 22:40] LABS: MANUAL DIFF FLAG NO
[2023-07-21 22:41] LABS: Basophils Percent Auto 0.1 % (0-2); Eosinophils Absolute Auto 0.1 X10*3/uL (0.0-0.4); Eosinophils Percent Auto 0.8 % (0-4); Imm Gran Abs Auto 0.03 X10*3/uL (0.00-0.03); Imm Gran Pct Auto 0.3 % (0.0-0.4); Lymphocytes Absolute Auto 1.5 X10*3/uL (1.2-4.9); Lymphocytes Percent Auto 15.6 % (20-40); Mean Corpuscular HGB Conc 35.1 g/dl (31.0-35.0); Mean Corpuscular Hemoglobin 30.7 pg (27.0-33.0); Mean Corpuscular Volume 87.5 fL (80.0-98.0); Mean Platelet Volume 8.8 fL (9.4-12.3); Monocytes Absolute Auto 0.6 X10*3/uL (0.1-1.2); Monocytes Percent Auto 5.9 % (2-11); Neutrophils Absolute Auto 7.5 x10*3/uL (2.0-8.3); Neutrophils Percent Auto 77.3 % (45-73); Platelet Count 330 X10*3/uL (160-400); Red Blood Count 4.23 X10*6/uL (4.20-5.50); Red Cell Distribution Width 12.5 % (11.0-16.0); White Blood Count 9.8 X10*3/uL (4.8-10.8)
[2023-07-21 23:02] LABS: Alanine Aminotransferase 22 U/L (0-31); Albumin Level 3.8 g/dL (3.5-5.0); Alkaline Phosphatase 115 U/L (39-117); Anion Gap 10 (12-20); Aspartate Amino Transferase 23 U/L (5-31); Bilirubin Total 0.4 mg/dL (0.0-1.0); Blood Urea Nitrogen 16 mg/dL (9-16); Calcium 9.3 mg/dL (8.4-10.2); Carbon Dioxide 27 mmol/L (22-29); Chloride 108 mmol/L (96-108); Creatinine Clr Calc Pharmacy 84.2; Estimated Glomerular Filt Rate > 60; Ethanol < 10 mg/dL; Glucose Random 102 mg/dL (60-115); Potassium 3.7 mmol/L (3.3-5.1); Sodium 141 mmol/L (135-145); Total Protein 6.7 g/dL (6.5-8.0)
[2023-07-21 23:28] LABS: UPreg QC Valid YES; Urine Pregnancy NEGATIVE (NEGATIVE)
[2023-07-21 23:33] LABS: Appearance Urine Turbid; Color Urine Dark Yellow; Glucose Urine UA Negative (Negative); Leukocyte Esterase Urine Small (1+) (Negative); Nitrite Urine Negative (Negative); PH 5.5 (5.0-9.0); Specific Gravity - Urine 1.025 (1.005-1.025); UMIC TRIGGER UACC YES; Urine Blood Negative (Negative); Urine Ketones Trace mg/dL (Negative); Urine Protein 100 (2+) mg/dL (Neg-Trace)
[2023-07-21 23:38] LABS: Amphetamine Screen Urine Not Detected (Not Detect); Barbiturates, Urine Not Detected (Not Detect); Benzodiazepines Screen Urine POSITIVE (Not Detect); Buprenorphine Scr Positive (Not Detect); Cannabinoid Screen Urine Not Detected (Not Detect); Cocaine Screen Urine POSITIVE (Not Detect); Fentanyl, urine Not Detected (Not Detect); Methadone Screen, Urine Not Detected (Not Detect); Opiate Screen Urine Not Detected (Not Detect); Oxycodone Screen Urine Not Detected (Not Detect); Phencyclidine Screen Urine Not Detected (Not Detect)
[2023-07-21 23:45] LABS: Bacteria Urine 4+ (None Seen); Calcium Oxalate Crystals Urine Present; Other Crystals Urine Present; Squamous Epithelial Cell Urine >20 /HPF (0-2); UACC Culture Trigger YES; WBC Urine 21-50 /HPF (0-5)
--- NOTE | 2023-07-21 23:55 | PC.NURSE ---
Assumed care of pt at 23:00. PT anxious to meet with provider, reports I am going to need my meds . Does not offer any complaints to this RN @ this time. Awaiting ED provider @ this time.
--- NOTE | 2023-07-22 00:20 | ED_ITS ---
HPI - Psych General Chief Complaint: Psychiatric Symptoms Stated Complaint: section 12, ran from PD, SI Time Seen by Provider: 07/22/23 00:11 Source: patient and EMS Mode of arrival: EMS Limitations: no limitations History of Present Illness HPI Narrative: Patient comes to the emergency room via EMS on a section 12. According to the patient, patient had an argument with her mother, states that she believes her father misunderstood what she was saying. Patient denies SI or HI, states that her father called 911. Patient did not want to come to the hospital and therefore run away from EMS and PD. Patient was found in the [facility]. Patient denies alcohol abuse and denies drug abuse. Patient reports that she has weakly therapies and is compliant with attending to them. Related Data Home Medications ?Medication ?Instructions ?Recorded ?Confirmed levonorgestrel 21 mcg/24 hours (8 intrauterine 04/05/22 05/12/22 yrs) 52 mg intrauterine device (Mirena) diazepam 5 mg tablet 1 tab PO TID PRN anxiety 04/12/22 05/12/22 paliperidone 3 mg tablet,extended 1 tab PO BEDTIME 04/12/22 05/12/22 release 24 hr Previous Rx's ?Medication ?Instructions ?Recorded clonidine HCl 0.3 mg tablet 0.3 mg PO BEDTIME 1 month #30 tabs 05/26/21 simethicone 180 mg capsule 180 mg PO BID PRN abdominal 12/08/21 distention #60 caps sucralfate 100 mg/mL oral 2 g (20 mL) PO BID #400 mL 04/05/22 suspension (Carafate) thiamine HCl (vitamin B1) 100 mg 100 mg PO DAILY #90 tabs 04/12/22 tablet naloxone 4 mg/actuation nasal 4 mg intranasal Q2M PRN opioid 08/22/22 spray (Narcan) overdose #2 ea docusate sodium 100 mg capsule 100 mg PO BID PRN Constipation #60 02/15/23 caps gabapentin 600 mg tablet 600 mg PO BID #180 tabs 02/18/23 topiramate 50 mg tablet 50 mg PO BID #60 tabs 04/27/23 buprenorphine 12 mg-naloxone 3 mg 1 film buccal Q24H #21 ea 06/11/23 sublingual film (Suboxone) buprenorphine 96 mg/0.27 mL 96 mg (0.27 mL) subcut Q28D #0.27 03/15/24 solution,exten.rel.subcutaneous mL syringe (Brixadi Monthly) Allergies Allergy/AdvReac Type Severity Reaction Status Date / Time hydrocodone [From Vicodin] Allergy Intermediate hives Verified 07/21/23 22:07 clavulanic acid Allergy Mild Diarrhea Verified 07/21/23 22:07 [From Augmentin] Sulfa (Sulfonamide AdvReac Intermediate Itching Verified 07/21/23 22:07 Antibiotics) [SULFA(SULFONAMIDE ANTIBIOTICS)] sumatriptan [From IMITREX] AdvReac Mild Vomiting Verified 07/21/23 22:07 Review of Systems 2 Review of Systems: Constitutional : No Weight loss, No Fever, No Chills, No Night Sweats, No Fatigue, No Malaise ENT/Mouth : No Hearing loss, No Ear Pain, No Nasal Congestion, No Sinus Pain, No Hoarseness, No sore throat, No Rhinorrhea, No Swallowing Difficulty Eyes: No Eye Pain, No Swelling, No Redness, No Foreign Body, No Discharge, No Vision Changes Cardiovascular : No Chest Pain, No SOB, No Dyspnea on Exertion, No Orthopnea, No Edema, No Palpitations Respiratory : No Cough, No Sputum, No Wheezing, No Smoke Exposure, No Dyspnea Gastrointestinal : No Nausea, No Vomiting, No Diarrhea, No Constipation, No abdominal Pain, No Hematochezia, No Melena Genitourinary : no irregular bleeding, No Dysuria, No Urinary Frequency, No Hematuria, No Urinary Incontinence, No Urgency, No Flank Pain, No Urinary Flow Changes, No Hesitancy Musculoskeletal : No joint pain, No Myalgias, No Joint Swelling Skin : No Skin Lesions, No rash Neuro : No Weakness, No Numbness, No Paresthesias, No Loss of Consciousness, No Dizziness, No Headache Psych : Denies SI or HI, states tonight was a misunderstanding, denies polysubstance abuse Heme/Lymph: No Bruising, No Bleeding,No Lymphadenopathy Endocrine : No Polyuria, No Polydipsia, No Temperature Intolerance PMFSH Past Medical History Medical History Opioid dependence, uncomplicated Cholelithiasis Asthma Steatosis, liver Diaphragmatic hernia PTSD (post-traumatic stress disorder) Depression Anxiety Bipolar 2 disorder Opioid use disorder Surgical History History of sleeve gastrectomy Hx of bilateral breast reduction surgery Hx of section Hx of nasal septoplasty Obesity Family History Family History Father No problems noted. Mother No problems noted. Social History Social History Housing: Apartment Are you a primary care management associate to a significant other at home: No Do you presently have visiting nurse or other home services: No Alcohol intake: former Patient Tobacco Use Status: Former Tobacco user Cigarette Packs Per Day: 0.5 Cigarettes Per Day: 10.0 Years Smoked: 20 Substance Use Type: Crack/Cocaine, Heroin and Marijuana Advance Directives: No Advance Directives Information Provided: No service: No Current occupational status: unemployed Cognitive needs: No Hearing needs: No Vision needs: No Physical Exam 2 Vital Signs: Vital Signs: Last Vital Signs Temp 98.2 F 07/21/23 22:04 Pulse 96 07/21/23 22:04 Resp 17 07/21/23 22:04 BP 121/85 07/21/23 22:04 Pulse Ox 99 07/21/23 22:04 O2 Del Method Room Air 07/21/23 22:04 BMI result Body Mass Index 19.6 Const: Other: Appearance: Alert. Oriented X3. No acute distress. Eyes: Pupils equal, round and reactive to light. ENT: Pharynx normal. Neck: Normal inspection. Neck supple. No lymph nodes noted. No crepitus CVS: Normal heart rate and rhythm. Pulses normal. Normal S1 and S2 Respiratory: No respiratory distress. Breath sounds normal. No Wheezing. No rales Abdomen: Soft and nontender. No rigidity. No distention. Skin: Skin warm and dry. Normal skin color. Normal skin turgor. Extremities: No lower extremity edema. No Lacerations. No Rash Neuro: Oriented X 3. No motor deficit. No sensory deficit. Moving all extremities. No slurred speech. CN 2 through 12 grossly intact Psych: calm, cooperative, normal affect Medical Decision Making Medical Decision Making MDM Narrative: -my interpretation of labs: Hematology chemistry did not show any significant abnormalities. Patient's urine shows leukocyte esterase, white blood cells in a very large number of squamous epithelial cells, likely this is a contaminant. test negative. Urine toxicology positive for benzodiazepines and cocaine -patient is on a Section 12 that was started out in the community -care team consult pending -physician observation started at 00:23 -01:50: I spoke with the care team, they recommend to keep the patient until the morning, they would like to verify the patient's story with her parents -physician observation continues Differential Diagnosis Differential Diagnoses: The differential diagnosis associated with the presentation includes (Anxiety, depression, polysubstance abuse) Admission/Observation Consideration of admission/observation: Escalation of care including admission/observation considered (Patient is on a Section 12 waiting to be seen by the care team) Lab Data MDM Lab Attestation statement: I reviewed the patient's lab results. 07/21/23 22:33 07/21/23 22:33 Labs: Lab Results 07/21/23 07/21/23 Range/Units 22:33 23:19 WBC 9.8 (4.8-10.8) X10*3/uL RBC 4.23 (4.20-5.50) X10*6/uL Hgb 13.0 (12.0-16.0) g/dl Hct 37.0 (37.0-47.0) % MCV 87.5 (80.0-98.0) fL MCH 30.7 (27.0-33.0) pg MCHC 35.1 H (31.0-35.0) g/dl RDW 12.5 (11.0-16.0) % Plt Count 330 D (160-400) X10*3/uL MPV 8.8 L (9.4-12.3) fL Immature Gran % (Auto) 0.3 (0.0-0.4) % Neut % (Auto) 77.3 H (45-73) % Lymph % (Auto) 15.6 L (20-40) % [place] % (Auto) 5.9 (2-11) % Eos % (Auto) 0.8 (0-4) % Baso % (Auto) 0.1 (0-2) % Lymph # (Auto) 1.5 (1.2-4.9) X10*3/uL [place] # (Auto) 0.6 (0.1-1.2) X10*3/uL Eos # (Auto) 0.1 (0.0-0.4) X10*3/uL Baso # (Auto) 0.0 (0.0-0.2) X10*3/uL Abs Immat Gran (auto) 0.03 (0.00-0.03) X10*3/uL Absolute Neuts (auto) 7.5 (2.0-8.3) x10*3/uL Absolute Nucleated RBC 0.000 (0.0-0.012) X10*3/uL Nucleated RBC % (auto) 0.0 (0.0-0.2) /100WBC Sodium 141 (135-145) mmol/L Potassium 3.7 (3.3-5.1) mmol/L Chloride 108 (96-108) mmol/L Carbon Dioxide 27 (22-29) mmol/L Anion Gap 10 L (12-20) BUN 16 (9-16) mg/dL Creatinine 0.68 (0.5-1.4) mg/dL Estim Creat Clear Calc 84.2 Estimated GFR > 60 Random Glucose 102 (60-115) mg/dL Calcium 9.3 D (8.4-10.2) mg/dL Total Bilirubin 0.4 (0.0-1.0) mg/dL AST 23 (5-31) U/L ALT 22 (0-31) U/L Alkaline Phosphatase 115 (39-117) U/L Total Protein 6.7 (6.5-8.0) g/dL Albumin 3.8 (3.5-5.0) g/dL Urine Color Dark Yellow Urine Appearance Turbid Urine pH 5.5 (5.0-9.0) Ur Specific [place] 1.025 (1.005-1.025) Urine Protein 100 (2+) H (Neg-Trace) mg/dL Urine Glucose (UA) Negative (Negative) mg/dL Urine Ketones Trace (Negative) mg/dL Urine Blood Negative (Negative) Urine Nitrite Negative (Negative) Ur Leukocyte Esterase Small (1+) H (Negative) Urine RBC 6-10 H (0-2) /HPF Urine WBC 21-50 H (0-5) /HPF Ur Squamous Epith Cells >20 (0-2) /HPF Calcium Oxalate Crystal Present Other Crystals Present Urine Bacteria 4+ (None Seen) Hyaline Casts 6-10 (0-2) /LPF Urine Test NEGATIVE (NEGATIVE) Urine Opiates Screen Not Detected (Not Detect) Ur Buprenorphine Scrn Positive (Not Detect) ng/mL Ur Oxycodone Screen Not Detected (Not Detect) ng/mL Urine Methadone Screen Not Detected (Not Detect) ng/mL Urine Fentanyl Screen Not Detected (Not Detect) Ur Barbiturates Screen Not Detected (Not Detect) Ur Phencyclidine Scrn Not Detected (Not Detect) Ur Amphetamines Screen Not Detected (Not Detect) U Benzodiazepines Scrn POSITIVE H (Not Detect) Urine Cocaine Screen POSITIVE H (Not Detect) U Marijuana (THC) Screen Not Detected (Not Detect) Ethyl Alcohol < 10 mg/dL Discharge Plan Discharge Clinical Impression: Cocaine abuse, Family conflict Patient Disposition: Still a Patient Prescriptions: No Action clonidine HCl 0.3 mg tablet 0.3 mg PO BEDTIME 30 Days Qty: 30 2RF simethicone 180 mg capsule 180 mg PO BID PRN (Reason: abdominal distention) Qty: 60 1RF thiamine HCl (vitamin B1) 100 mg tablet 100 mg PO DAILY Qty: 90 0RF docusate sodium 100 mg capsule 100 mg PO BID PRN (Reason: Constipation) Qty: 60 2RF gabapentin 600 mg tablet 600 mg PO BID Qty: 180 1RF topiramate 50 mg tablet 50 mg PO BID Qty: 60 0RF diazepam 5 mg tablet 1 tab PO TID PRN (Reason: anxiety) paliperidone 3 mg tablet extended release 24 hr 1 tab PO BEDTIME Mirena 20 mcg/24 hours (8 yrs) 52 mg intrauterine device intrauterine sucralfate [Carafate] 100 mg/mL suspension 2 g PO BID Qty: 400 0RF naloxone [Narcan] 4 mg/actuation spray,non-aerosol 4 mg intranasal Q2M PRN (Reason: opioid overdose) Qty: 2 0RF Rx Instructions: spray 1 dose into ONE nostril; alternate nostrils w each dose until help arrives buprenorphine-naloxone [Suboxone] 12-3 mg film 1 film buccal Q24H Qty: 21 0RF Brixadi 96 mg/0.27 mL solution, extended rel syringe 96 mg subcut Q28D Qty: 0.27 5RF Interventions: [place]-Suicide Risk Severity Scale Last Done: 07/21/23 22:08 Print Language: Ukrainian
--- NOTE | 2023-07-22 01:28 | PC.NURSE ---
PT reports she missed her evening medications, Clonidine 0.2mg, Valium 5mg, Topamax 25mg, Invega 6mg. Dr. Cortes made aware.
[2023-07-22 05:06] VITALS: BP 113/87; PULSE 83; RESP 17; TEMP 36.6; O2SAT 97
--- NOTE | 2023-07-22 05:32 | PC.NURSE ---
PT appeared to be sleeping most of the night, did get up to use restroom. Currently laying in bed, resp even and unlabored. PT agitated that did not prescribe her meds last evening. VSS. Plan of care onging.
--- NOTE | 2023-07-22 07:40 | PC.NURSE ---
Assumed care of patient at 0645, patient appears to be sleeping, respirations even and unlabored, skin pwd, no apparent distress noted. Continue plan of care for CARE team follow up this am
[2023-07-22] MEDS: Nicotine 21 MG PATCH.TD24 TRANSDERMA (08:38)
--- NOTE | 2023-07-22 09:12 | PC.NURSE ---
Care team speaks with patient's mother, plan for patient discharge, MD aware
[2023-07-22 09:34] VITALS: BP 108/89; PULSE 80; RESP 16; TEMP 36.6; O2SAT 99
== END 2023-07-22 09:45 | disposition home or self-care (01) ==
PROVIDERS: Emergency Provider Emergency Medicine
DX: F14.10 Cocaine abuse, uncomplicated (principal); F31.81 Bipolar II disorder; F43.10 Post-traumatic stress disorder, unspecified; F11.20 Opioid dependence, uncomplicated; Z72.89 Other problems related to lifestyle; Z63.8 Other specified problems related to primary support group; Z79.899 Other long term (current) drug therapy
CPT/HCPCS: 36415; 80053; 80307; 81001; 81025; 85025; 87086; 99285; S9485

== ENCOUNTER → 2023-07-24 09:13 | Outpatient (BNVA) | payer OTHER, SELFPAY | PROVIDERS: Visit Provider Nurse Practitioner Psychiatric/Mental Health | DX: F14.20 Cocaine dependence, uncomplicated (principal); F11.99 Opioid use, unspecified with unspecified opioid-induced disorder | CPT/HCPCS: 96372; C9154 ==

== ENCOUNTER 2023-07-24 09:19 | Outpatient (AMB) | payer OTHER, SELFPAY ==
--- NOTE | 2023-07-24 09:12 | MHC.AM.SUB ---
Vital Signs 07/24/23 09:15 BP 100/60 Blood Pressure Location Rt radial Position Sitting Pulse 86 Pulse Source Pulse Oximeter Pulse Oximetry (%) 90 L Intake Visit Reasons: MAT Visit/Brix Inj Allergies hydrocodone [From Vicodin] Allergy (Intermediate, Verified 07/21/23 22:07) hives clavulanic acid [From Augmentin] Allergy (Mild, Verified 07/21/23 22:07) Diarrhea Sulfa (Sulfonamide Antibiotics) [SULFA(SULFONAMIDE ANTIBIOTICS)] Adverse Reaction (Intermediate, Verified 07/21/23 22:07) Itching sumatriptan [From IMITREX] Adverse Reaction (Mild, Verified 07/21/23 22:07) Vomiting HPI HPI MAT Visit/Brix Inj: Details: Patient presents for follow up and Brixadi injection She is tolerating injection and finds it very helpful, however requesting an increase in dose as she felt like it was wearing off towards the end of the month Denies and cravings for opiates Recently admitted to [facility] in [place] for cocaine use disorder She found the program to be helpful -shared some new coping strategies Discussed how she is working towards distancing herself from certain people in her life that are not helpful to her recovery Planning to change her phone number Discussed accessing other recovery supports including [facility] Patient reporting that she will be seeing her provider today [facility] Medical History Opioid dependence, uncomplicated Cholelithiasis Asthma Steatosis, liver Diaphragmatic hernia PTSD (post-traumatic stress disorder) Depression Anxiety Bipolar 2 disorder Opioid use disorder Surgical History History of sleeve gastrectomy Hx of bilateral breast reduction surgery Hx of section Hx of nasal septoplasty Obesity Family History Father No problems noted. Mother No problems noted. Social History Housing: Apartment Are you a primary care management associate to a significant other at home: No Do you presently have visiting nurse or other home services: No Alcohol intake: former Patient Tobacco Use Status: Former Tobacco user Cigarette Packs Per Day: 0.5 Cigarettes Per Day: 10.0 Years Smoked: 20 Substance Use Type: Crack/Cocaine, Heroin and Marijuana service: No Current occupational status: unemployed Cognitive needs: No Hearing needs: No Vision needs: No Female Reproductive History Menstrual Age of Menarche: 10 Review of Systems Const Reports as per HPI Physical Exam Vital Signs: Last Vital Signs Pulse 86 07/24/23 09:15 BP 100/60 07/24/23 09:15 Pulse Ox 90 L 07/24/23 09:15 Const General: cooperative, healthy appearing and well groomed Nutritional Appearance: underweight Office Meds buprenorphine 96 mg/0.27 mL solution,exten.rel.subcutaneous syringe Performing Provider: Carlotta Gonzalez CNP Performing Location: [facility] Administered by: Jocelyne Mann RN on 07/24/23 09:19 Dose Route Admin Location Dispensed Lot Number Expiration Date [facility] Professor Of Historical Theology 96 mg subcut margareth 0.27 mL [id number] 01/30/25 23213-989-95 [email or web address]. Assessment & Plan Assessment & Plan (1) Cocaine use disorder, severe, dependence: Code(s): F14.20 - Cocaine dependence, uncomplicated Category: Medical Plan: risk reduction discussion (2) Opioid use disorder: Code(s): F11.99 - Opioid use, unspecified with unspecified opioid-induced disorder Category: Medical Plan: tolerated injection order for increased dose of Brixadi placed follow up 4 weeks ] recovery resources provided Orders: Orders AMB Buprenorphine Injection - Patient Supplied Today F15.90 - Other stimulant use, unspecified, uncomplicated
[2023-07-24 09:15] VITALS: BP 100/60; PULSE 86; O2SAT 90
== END 2023-07-24 09:32 | disposition home or self-care (01) ==
PROVIDERS: Visit Provider Nurse Practitioner Psychiatric/Mental Health
DX: F14.20 Cocaine dependence, uncomplicated (principal); F11.99 Opioid use, unspecified with unspecified opioid-induced disorder; F15.90 Other stimulant use, unspecified, uncomplicated
CPT/HCPCS: 99213

== ENCOUNTER 2023-08-21 11:13 | Outpatient (AMB) | payer OTHER, SELFPAY ==
--- NOTE | 2023-08-21 11:13 | AM.OFFVISNUR ---
Intake Vital Signs 08/21/23 11:15 BP 128/80 Blood Pressure Location Lt brachial Position Sitting Pulse 138 H Pulse Source Pulse Oximeter Pulse Oximetry (%) 98 Oxygen Delivery Method Room Air Intake Visit Reasons: Brix Inj Allergies hydrocodone [From Vicodin] Allergy (Intermediate, Verified 07/21/23 22:07) hives clavulanic acid [From Augmentin] Allergy (Mild, Verified 07/21/23 22:07) Diarrhea Sulfa (Sulfonamide Antibiotics) [SULFA(SULFONAMIDE ANTIBIOTICS)] Adverse Reaction (Intermediate, Verified 07/21/23 22:07) Itching sumatriptan [From IMITREX] Adverse Reaction (Mild, Verified 07/21/23 22:07) Vomiting Nursing Note Patient presents to clinic today for injection. She is alert and oriented x4, in good spirits, speaking in clear/full sentences, smiling, dressed appropriately for weather. Pt denies any complications from previous injection, when asked how the injection and recovery is going pt states good good , nothing more. Injection given in right arm, patient tolerated without any concerns or complications. Will follow up in 4 weeks. Office Meds buprenorphine 128 mg/0.36 mL solution,ext.rel.subcutaneous syringe Performing Provider: Carlotta Gonzalez CNP Performing Location: [facility] Administered by: Jocelyne Mann RN on 08/21/23 15:04 Dose Route Admin Location Dispensed Lot Number Expiration Date [facility] Radius Grinder 128 mg subcut KARMA 0.36 mL [id number] 05/01/25 58513-671-47 [employer]. Coding Assessment & Plan Assessment & Plan Orders: Orders AMB Buprenorphine Injection - Patient Supplied Today F11.20 - Opioid dependence, uncomplicated Medications: New buprenorphine ER 128 mg (0.36 mL) subcut ONCE 0.36 mL 0RF F11.20 - Opioid dependence, uncomplicated
[2023-08-21 11:15] VITALS: BP 128/80; PULSE 138; O2SAT 98
== END 2023-08-21 11:25 | disposition home or self-care (01) ==
DX: F11.20 Opioid dependence, uncomplicated (principal)

== ENCOUNTER → 2023-08-21 11:13 | Outpatient (BNVA) | payer OTHER, SELFPAY | DX: F11.20 Opioid dependence, uncomplicated (principal) | CPT/HCPCS: 96372; J0576 ==

== ENCOUNTER 2023-09-20 11:10 | Outpatient (AMB) | payer OTHER, SELFPAY ==
--- NOTE | 2023-09-20 11:19 | AM.OFFVISNUR ---
Intake Intake Visit Reasons: Brix Inj Allergies hydrocodone [From Vicodin] Allergy (Intermediate, Verified 07/21/23 22:07) hives clavulanic acid [From Augmentin] Allergy (Mild, Verified 07/21/23 22:07) Diarrhea Sulfa (Sulfonamide Antibiotics) [SULFA(SULFONAMIDE ANTIBIOTICS)] Adverse Reaction (Intermediate, Verified 07/21/23 22:07) Itching sumatriptan [From IMITREX] Adverse Reaction (Mild, Verified 07/21/23 22:07) Vomiting Nursing Note Patient here today in clinic for injection. Pt is alert and oriented x4, in good spirits, speaking in clear/full sentences. Denies any complications with previous injection. Office Meds buprenorphine 128 mg/0.36 mL solution,ext.rel.subcutaneous syringe Performing Provider: Carlotta Gonzalez CNP Performing Location: [facility] Administered by: Jocelyne Mann RN on 09/21/23 13:37 Dose Route Admin Location Dispensed Lot Number Expiration Date [facility] Special Education Para Professional 128 mg subcut KARMA 0.36 mL [id number] 07/30/25 28555-204-57 [employer]. Coding Assessment & Plan Assessment & Plan Orders: Orders AMB Buprenorphine Injection - Patient Supplied 09/20/23 F11.90 - Opioid use, unspecified, uncomplicated Medications: New buprenorphine ER 128 mg (0.36 mL) subcut ONCE 0.36 mL 0RF F11.90 - Opioid use, unspecified, uncomplicated
== END 2023-09-20 11:20 | disposition home or self-care (01) ==
DX: F11.90 Opioid use, unspecified, uncomplicated (principal)

== ENCOUNTER → 2023-09-20 11:10 | Outpatient (BNVA) | payer OTHER, SELFPAY | DX: F11.90 Opioid use, unspecified, uncomplicated (principal) | CPT/HCPCS: 96372; J0576 ==

== ENCOUNTER 2023-10-19 14:02 | Outpatient (AMB) | payer OTHER, SELFPAY ==
--- NOTE | 2023-10-19 14:24 | AM.OFFVISNUR ---
Intake Visit Reasons: Brix Injection Allergies hydrocodone [From Vicodin] Allergy (Intermediate, Verified 07/21/23 22:07) hives clavulanic acid [From Augmentin] Allergy (Mild, Verified 07/21/23 22:07) Diarrhea Sulfa (Sulfonamide Antibiotics) [SULFA(SULFONAMIDE ANTIBIOTICS)] Adverse Reaction (Intermediate, Verified 07/21/23 22:07) Itching sumatriptan [From IMITREX] Adverse Reaction (Mild, Verified 07/21/23 22:07) Vomiting Nursing Note Patient presented as a walk in for her brixadi injection on 10/18. Demi Morales RN began visit, when I arrived to room patient had a brixadi hand out and said she had lots of questions, but the other nurse got it . Pt appeared anxious, with rapid speech and had a hard time sitting still. I injected in the upper left thigh as requested by pt and per orders/guidelines. Patient immediately began to slap the site with her fist, and rubbing it vigorously which I educated and tried to advise against. Patient brought a gauze wrap and applied ice and a gauze wrap around thigh and abruptly left office. I educated her to reach out to [facility] with any concerns or questions. Office Meds buprenorphine 128 mg/0.36 mL solution,ext.rel.subcutaneous syringe Performing Provider: Carlotta Gonzalez CNP Performing Location: [facility] Administered by: Jocelyne Mann RN on 10/19/23 15:04 Dose Route Admin Location Dispensed Lot Number Expiration Date [facility] Refrigerator Tester 128 mg subcut Left Thigh 0.36 mL [id number] 07/30/25 07952-613-25 [employer]. Assessment & Plan Assessment & Plan Orders: Orders AMB Buprenorphine Injection - Patient Supplied 10/19/23 F11.90 - Opioid use, unspecified, uncomplicated
== END 2023-10-19 14:24 | disposition home or self-care (01) ==
DX: F11.90 Opioid use, unspecified, uncomplicated (principal)

== ENCOUNTER → 2023-10-19 14:02 | Outpatient (BNVA) | payer OTHER, SELFPAY | DX: F11.90 Opioid use, unspecified, uncomplicated (principal) | CPT/HCPCS: 96372; J0578 ==

== ENCOUNTER 2023-10-26 06:54 | Emergency (ER) | payer OTHER, SELFPAY ==
[2023-10-26 07:08] VITALS: BP 122/98; PULSE 87; RESP 16; TEMP 36.6; O2SAT 97; BMI 18.3
[2023-10-26 07:56] LABS: Appearance Urine Cloudy; Color Urine Dark Yellow; Glucose Urine UA Negative (Negative); Leukocyte Esterase Urine Small (1+) (Negative); Nitrite Urine Negative (Negative); PH 5.5 (5.0-9.0); Specific Gravity - Urine 1.025 (1.005-1.025); UMIC TRIGGER UACC YES; Urine Blood Negative (Negative); Urine Ketones Trace mg/dL (Negative); Urine Protein 30 (1+) mg/dL (Neg-Trace)
[2023-10-26 07:57] LABS: UPreg QC Valid YES; Urine Pregnancy NEGATIVE (NEGATIVE)
--- NOTE | 2023-10-26 08:00 | ED_ITS ---
HPI - Female Genitourinary General Chief complaint: Urogenital-Female Stated complaint: UTI? Time Seen by Provider: 10/26/23 07:15 Source: patient Mode of arrival: ambulatory Limitations: no limitations History of Present Illness ED Provider: RENA BURTON Narrative: 38 yo female with PMH of substance abuse here with c/o urinary frequency and concern for UTI no fevers n/v or flank pain. No other concerns or reports at this time. MD elicited complaint: UTI Pertinent past history: recurrent UTIs Onset (ago): day(s) (1) Location of symptoms: urethra Severity: mild Consistency: intermittent Vaginal discharge: none Vaginal bleeding: none Urinary symptoms: Urgency and Frequency Exacerbating factors: urination Relieving factors: none Associated symptoms: denies other symptoms Related Data Home Medications ?Medication ?Instructions ?Recorded ?Confirmed levonorgestrel 21 mcg/24 hr (up to intrauterine 04/05/22 05/12/22 8 years) 52 mg intrauterine device (Mirena) diazepam 5 mg tablet 1 tab PO TID PRN anxiety 04/12/22 05/12/22 paliperidone 3 mg tablet,extended 1 tab PO BEDTIME 04/12/22 05/12/22 release 24 hr Previous Rx's ?Medication ?Instructions ?Recorded clonidine HCl 0.3 mg tablet 0.3 mg PO BEDTIME 1 month #30 tabs 05/26/21 simethicone 180 mg capsule 180 mg PO BID PRN abdominal 12/08/21 distention #60 caps sucralfate 100 mg/mL oral 2 g (20 mL) PO BID #400 mL 04/05/22 suspension (Carafate) thiamine HCl (vitamin B1) 100 mg 100 mg PO DAILY #90 tabs 04/12/22 tablet naloxone 4 mg/actuation nasal 4 mg intranasal Q2M PRN opioid 08/22/22 spray (Narcan) overdose #2 ea docusate sodium 100 mg capsule 100 mg PO BID PRN Constipation #60 02/15/23 caps gabapentin 600 mg tablet 600 mg PO BID #180 tabs 02/18/23 buprenorphine 12 mg-naloxone 3 mg 1 film buccal Q24H #21 ea 06/11/23 sublingual film (Suboxone) buprenorphine 96 mg/0.27 mL 96 mg (0.27 mL) subcut Q28D #0.27 06/15/23 solution,exten.rel.subcutaneous mL syringe (Brixadi Monthly) buprenorphine 128 mg/0.36 mL 128 mg (0.36 mL) subcut Q28D #0.36 07/24/23 solution,ext.rel.subcutaneous mL syringe (Brixadi Monthly) topiramate 50 mg tablet 50 mg PO BID #60 tabs 10/25/23 cefuroxime axetil 250 mg tablet 250 mg PO BID 7 days #14 tabs 10/26/23 fluconazole 150 mg tablet 150 mg PO Q3D 2 doses #2 tabs 10/26/23 Allergies Allergy/AdvReac Type Severity Reaction Status Date / Time hydrocodone [From Vicodin] Allergy Intermediate hives Verified 10/26/23 07:10 clavulanic acid Allergy Mild Diarrhea Verified 10/26/23 07:10 [From Augmentin] doxycycline Allergy Vomiting Verified 10/26/23 07:10 Sulfa (Sulfonamide AdvReac Intermediate Itching Verified 10/26/23 07:10 Antibiotics) [SULFA(SULFONAMIDE ANTIBIOTICS)] sumatriptan [From IMITREX] AdvReac Mild Vomiting Verified 10/26/23 07:10 Review of Systems Review of Systems: Constitutional : No Fever, No Chills, No Fatigue ENT/Mouth : No sore throat, No Rhinorrhea Eyes: No Eye Pain, No Swelling, No Redness Cardiovascular : No Chest Pain, No SOB, No Dyspnea on Exertion Respiratory : No Cough, No Sputum Gastrointestinal : No Nausea, No Vomiting, No Diarrhea, No abdominal Pain Genitourinary : No Dysuria, pos Urinary Frequency, No Hematuria, Musculoskeletal : No joint pain, No Myalgias, No Joint Swelling Skin : No Skin Lesions, No rash Neuro : No Weakness, No Numbness, No Dizziness, no Headache All other systems reviewed and are negative [facility] Past Medical History Attestation statement: The following information was validated with the patient. Source: old records reviewed Medical History Opioid dependence, uncomplicated Cholelithiasis Asthma Steatosis, liver Diaphragmatic hernia PTSD (post-traumatic stress disorder) Depression Anxiety Bipolar 2 disorder Opioid use disorder Surgical History Hx of nasal septoplasty History of sleeve gastrectomy Hx of bilateral breast reduction surgery Hx of section Obesity Family History Family History Father No problems noted. Mother No problems noted. Social History Social History Housing: Apartment Are you a primary lpn care manager to a significant other at home: No Do you presently have visiting nurse or other home services: No Alcohol intake: former Patient Tobacco Use Status: Former Tobacco user Cigarette Packs Per Day: 0.5 Cigarettes Per Day: 10.0 Years Smoked: 20 Substance Use Type: Crack/Cocaine, Heroin and Marijuana Advance Directives: No Advance Directives Information Provided: Yes service: No Current occupational status: unemployed Cognitive needs: No Hearing needs: No Vision needs: No Physical Exam Vital Signs: Vital Signs: Last Vital Signs Temp 97.8 F 10/26/23 07:08 Pulse 87 10/26/23 07:08 Resp 16 10/26/23 07:08 BP 122/98 H 10/26/23 07:08 Pulse Ox 97 10/26/23 07:08 O2 Del Method Room Air 10/26/23 07:08 BMI result Body Mass Index 18.3 Appearance: Alert. Oriented X3. No acute distress. Eyes: Pupils equal, round and reactive to light. ENT: Pharynx normal. Neck: Normal inspection. Neck supple. CVS: Normal heart rate and rhythm. Pulses normal. Respiratory: No respiratory distress. Breath sounds normal. Abdomen: Soft and nontender. no CVA ttp Skin: Skin warm and dry. Normal skin color. Normal skin turgor. Extremities: No lower extremity edema. No calf ttp Neuro: Oriented X 3. No motor deficit. No sensory deficit. Medical Decision Making Medical Decision Making [facility] Narrative: 38 yo female with PMH of substance abuse here with c/o urinary frequency and concern for UTI she has no fevers, n/v no flank pain she is eating cheez its not toxic at this time no STI concerns reported appears comfortable doubt stone. Will start on ceftin has some yeast in urine as well x 1 dose of diflucan stable for DC Differential Diagnosis Differential Diagnoses: The differential diagnosis associated with the presentation includes UTI Admission/Observation Consideration of admission/observation: Escalation of care including admission/observation considered not toxic, toloerating PO stable VS stable for outpatient management Lab Data [facility] Lab Attestation statement: I reviewed the patient's lab results. Labs: Lab Results 10/26/23 Range/Units 07:49 Urine Color Dark Yellow Urine Appearance Cloudy Urine pH 5.5 (5.0-9.0) Ur Specific [place] 1.025 (1.005-1.025) Urine Protein 30 (1+) H (Neg-Trace) mg/dL Urine Glucose (UA) Negative (Negative) mg/dL Urine Ketones Trace (Negative) mg/dL Urine Blood Negative (Negative) Urine Nitrite Negative (Negative) Ur Leukocyte Esterase Small (1+) H (Negative) Urine Test NEGATIVE (NEGATIVE) External Record Review External record reviewed: Prior outpatient labs Prescription Management I considered prescription management with: Antibiotic and Other Discharge Plan Discharge Clinical Impression: Vaginal yeast infection Urinary tract infection Qualifiers: Urinary tract infection type: acute cystitis Hematuria presence: without hematuria Qualified Code(s): N30.00 - Acute cystitis without hematuria Patient Disposition: Home, Self-Care Instructions: Urinary Tract Infection in Women (ED), Yeast Infection (ED) Additional Instructions: urine shows infection but also some yeast in urine suspect yeast as well - start antibiotics and diflucan today take second dose of diflucan at end of the antibiotic course return for worsening symptoms, fevers, vomiting, severe back pain or any other concerns stay hydrated and drink plenty of fluids Prescriptions: New cefuroxime axetil 250 mg tablet 250 mg PO BID 7 Days Qty: 14 0RF fluconazole 150 mg tablet 150 mg PO Q3D Qty: 2 0RF Rx Instructions: may repeat second dose 72 hrs after first dose if symptoms persist No Action clonidine HCl 0.3 mg tablet 0.3 mg PO BEDTIME 30 Days Qty: 30 2RF simethicone 180 mg capsule 180 mg PO BID PRN (Reason: abdominal distention) Qty: 60 1RF thiamine HCl (vitamin B1) 100 mg tablet 100 mg PO DAILY Qty: 90 0RF docusate sodium 100 mg capsule 100 mg PO BID PRN (Reason: Constipation) Qty: 60 2RF gabapentin 600 mg tablet 600 mg PO BID Qty: 180 1RF Brixadi 128 mg/0.36 mL solution, extended rel syringe 128 mg subcut Q28D Qty: 0.36 5RF topiramate 50 mg tablet 50 mg PO BID Qty: 60 0RF diazepam 5 mg tablet 1 tab PO TID PRN (Reason: anxiety) paliperidone 3 mg tablet extended release 24 hr 1 tab PO BEDTIME Mirena 20 mcg/24 hours (8 yrs) 52 mg intrauterine device intrauterine sucralfate [Carafate] 100 mg/mL suspension 2 g PO BID Qty: 400 0RF naloxone [Narcan] 4 mg/actuation spray,non-aerosol 4 mg intranasal Q2M PRN (Reason: opioid overdose) Qty: 2 0RF Rx Instructions: spray 1 dose into ONE nostril; alternate nostrils w each dose until help arrives buprenorphine-naloxone [Suboxone] 12-3 mg film 1 film buccal Q24H Qty: 21 0RF Brixadi 96 mg/0.27 mL solution, extended rel syringe 96 mg subcut Q28D Qty: 0.27 5RF Print Language: Zambian
[2023-10-26 08:06] LABS: Bacteria Urine 4+ (None Seen); Calcium Oxalate Crystals Urine Present; Hyaline Casts Urine 0-2 /LPF (0-2); RBC Urine 0-2 /HPF (0-2); UACC Culture Trigger YES; WBC Urine 21-50 /HPF (0-5)
[2023-10-26 08:25] VITALS: BP 139/92; PULSE 106; RESP 18; TEMP 36.6; O2SAT 98
== END 2023-10-26 08:26 | disposition home or self-care (01) ==
PROVIDERS: Emergency Provider Emergency Medicine
DX: B37.31 Acute candidiasis of vulva and vagina (principal); N30.00 Acute cystitis without hematuria; J45.909 Unspecified asthma, uncomplicated; F11.20 Opioid dependence, uncomplicated; Z87.891 Personal history of nicotine dependence; Z79.899 Other long term (current) drug therapy
CPT/HCPCS: 81001; 81025; 87086; 99282; 99283

== ENCOUNTER 2023-12-11 11:39 | Outpatient (AMB) | payer OTHER, SELFPAY ==
--- NOTE | 2023-12-11 11:58 | MHC.AM.SUB ---
Intake Visit Reasons: MAT/ Sub Injection Allergies hydrocodone [From Vicodin] Allergy (Intermediate, Verified 10/26/23 07:10) hives clavulanic acid [From Augmentin] Allergy (Mild, Verified 10/26/23 07:10) Diarrhea doxycycline Allergy (Verified 10/26/23 07:10) Vomiting Sulfa (Sulfonamide Antibiotics) [SULFA(SULFONAMIDE ANTIBIOTICS)] Adverse Reaction (Intermediate, Verified 10/26/23 07:10) Itching sumatriptan [From IMITREX] Adverse Reaction (Mild, Verified 10/26/23 07:10) Vomiting HPI HPI MAT/ Sub Injection: Details: Patient seen in follow up presented as a walk in for her Brixadi injection She reports that she recently discharged from inpatient addiction treatment program Was attending [facility], however due to transportation was not able to continue Declined urine tox screen during visit --did report cocaine use shortly after returning home from treatment. unwilling to discuss any further somewhat irritable and impatient during visit limited insight [facility] Medical History Opioid dependence, uncomplicated Cholelithiasis Asthma Steatosis, liver Diaphragmatic hernia PTSD (post-traumatic stress disorder) Depression Anxiety Bipolar 2 disorder Opioid use disorder Surgical History Hx of nasal septoplasty History of sleeve gastrectomy Hx of bilateral breast reduction surgery Hx of section Obesity Family History Father No problems noted. Mother No problems noted. Social History Housing: Apartment Are you a primary personal care assistant to a significant other at home: No Do you presently have visiting nurse or other home services: No Alcohol intake: former Patient Tobacco Use Status: Former Tobacco user Cigarette Packs Per Day: 0.5 Cigarettes Per Day: 10.0 Years Smoked: 20 Substance Use Type: Crack/Cocaine, Heroin and Marijuana service: No Current occupational status: unemployed Cognitive needs: No Hearing needs: No Vision needs: No Female Reproductive History Menstrual Age of Menarche: 10 Review of Systems Const Reports as per HPI Physical Exam Const General: well groomed Nutritional Appearance: underweight Orientation/consciousness: patient oriented x3 Limitations: no limitations Neuro General: patient oriented x3 Psych Speech and movement: Pressured speech present Affect: Irritable affect present Attitude: Guarded attititude/behavior present Thought process: Tangential thought process present Insight: Limited insight present (Psych) Judgement: Fair judgement present (Psych) Office Meds buprenorphine 128 mg/0.36 mL solution,ext.rel.subcutaneous syringe Performing Provider: Carlotta Gonzalez CNP Performing Location: [facility] Administered by: Jocelyne Mann RN on 12/11/23 12:09 Dose Route Admin Location Dispensed Lot Number Expiration Date [facility] Financial Examiner 128 mg subcut LLeg 0.36 mL [id number] 07/30/25 16961-188-46 [employer]. Assessment & Plan Assessment & Plan (1) Cocaine use disorder, severe, dependence: Code(s): F14.20 - Cocaine dependence, uncomplicated Category: Medical Plan: risk reduction education (as allowed by patient) (2) Opioid use disorder, moderate, in sustained remission: Code(s): F11.21 - Opioid dependence, in remission Category: Medical Plan: tolerated injection follow up 4 weeks Orders: Orders AMB Buprenorphine Injection - Patient Supplied Today F11.90 - Opioid use, unspecified, uncomplicated
== END 2023-12-11 13:02 | disposition home or self-care (01) ==
PROVIDERS: Visit Provider Nurse Practitioner Psychiatric/Mental Health
DX: F14.20 Cocaine dependence, uncomplicated (principal); F11.21 Opioid dependence, in remission; F11.90 Opioid use, unspecified, uncomplicated
CPT/HCPCS: 99214

== ENCOUNTER → 2023-12-11 11:39 | Outpatient (BNVA) | payer OTHER, SELFPAY | PROVIDERS: Visit Provider Nurse Practitioner Psychiatric/Mental Health | DX: F14.20 Cocaine dependence, uncomplicated (principal); F11.21 Opioid dependence, in remission | CPT/HCPCS: 96372; J0578 ==

== ENCOUNTER → 2024-02-08 11:27 | Outpatient (BNVA) | payer OTHER, SELFPAY | PROVIDERS: Visit Provider Physician Assistant Surgical ==

== ENCOUNTER 2024-02-22 11:43 | Outpatient (AMB) | payer OTHER, SELFPAY ==
--- NOTE | 2024-02-22 11:46 | MHC.AM.SUB ---
Intake Visit Reasons: per Carlotta - medication Allergies hydrocodone [From Vicodin] Allergy (Intermediate, Verified 10/26/23 07:10) hives clavulanic acid [From Augmentin] Allergy (Mild, Verified 10/26/23 07:10) Diarrhea doxycycline Allergy (Verified 10/26/23 07:10) Vomiting Sulfa (Sulfonamide Antibiotics) [SULFA(SULFONAMIDE ANTIBIOTICS)] Adverse Reaction (Intermediate, Verified 10/26/23 07:10) Itching sumatriptan [From IMITREX] Adverse Reaction (Mild, Verified 10/26/23 07:10) Vomiting HPI HPI per Carlotta - medication: Details: Patient presents for follow up via telehealth Reporting 47 days sober IOP at [facility] Has started attending NA meetings Reports she went to [facility] , then [facility] then Has been taking suboxone 8mg AM, 8mg PM and 4mg evenings Brixadi not available at facilities so she was transitioned back to oral bupe medications updated in EMR [facility], showing more insight telehealth appts due to transportation issues Review of Systems Const Reports as per HPI and Reports no additional complaints Telehealth Telehealth Telehealth Platform: Telephone Location of provider rendering services: practice address Location of patient: address on file Patient Identification confirmed using: Name, : Yes Telehealth method: voice only Patient verbally consented to treatment: Yes Patient verbally consented to billing insurance company: Yes Minutes spent on Phone/Video with Pt.: 25 Assessment & Plan Assessment & Plan (1) Opioid use disorder, moderate, in sustained remission: Code(s): F11.21 - Opioid dependence, in remission Category: Medical Plan: continue suboxone at current dose relapse prevention discussion (2) Cocaine use disorder, severe, dependence: Code(s): F14.20 - Cocaine dependence, uncomplicated Category: Medical Plan: topomax dose increased follow up 3 weeks telehealth Medications: New buprenorphine-naloxone 8-2 mg (Suboxone) 1 film buccal BID 60 ea 0RF buprenorphine-naloxone 4-1 mg (Suboxone) in addition to the 8mg BID 1 film buccal Q24H 30 ea 0RF Changed From topiramate 50 mg PO BID 60 tabs 0RF To topiramate 100 mg (2 x 50 mg) PO BID 60 tabs 3RF Discontinued fluconazole may repeat second dose 72 hrs after first dose if symptoms persist Discontinued Reason: Patient Completed Course 150 mg PO Q3D 2 tabs 0RF cefuroxime axetil Discontinued Reason: Patient Completed Course 250 mg PO BID 7 days 14 tabs 0RF gabapentin Discontinued Reason: Patient no longer taking 600 mg PO BID 180 tabs 1RF S16.1XXA - Strain of muscle, fascia and tendon at neck level, initial encounter simethicone Discontinued Reason: Patient no longer taking 180 mg PO BID PRN 60 caps 1RF abdominal distention sucralfate (Carafate) Discontinued Reason: Patient no longer taking 2 grams (20 mL) PO BID 400 mL 0RF buprenorphine-naloxone 12-3 mg (Suboxone) Discontinued Reason: Patient no longer taking 1 film buccal Q24H 21 ea 0RF PFSH Medical History Opioid dependence, uncomplicated Cholelithiasis Asthma Steatosis, liver Diaphragmatic hernia PTSD (post-traumatic stress disorder) Depression Anxiety Bipolar 2 disorder Opioid use disorder Surgical History Hx of nasal septoplasty History of sleeve gastrectomy Hx of bilateral breast reduction surgery Hx of section Obesity Family History Father No problems noted. Mother No problems noted. Social History Housing: Apartment Are you a primary healthcare administration intern to a significant other at home: No Do you presently have visiting nurse or other home services: No Alcohol intake: former Patient Tobacco Use Status: Former Tobacco user Cigarette Packs Per Day: 0.5 Cigarettes Per Day: 10.0 Years Smoked: 20 Substance Use Type: Crack/Cocaine, Heroin and Marijuana service: No Current occupational status: unemployed Cognitive needs: No Hearing needs: No Vision needs: No
== END 2024-02-22 13:00 | disposition home or self-care (01) ==
PROVIDERS: Visit Provider Nurse Practitioner Psychiatric/Mental Health
DX: F11.21 Opioid dependence, in remission (principal); F14.20 Cocaine dependence, uncomplicated
CPT/HCPCS: 99214

== ENCOUNTER → 2024-02-22 11:43 | Outpatient (BNVA) | payer OTHER, SELFPAY | PROVIDERS: Visit Provider Nurse Practitioner Psychiatric/Mental Health ==

== ENCOUNTER 2024-03-21 11:50 | Outpatient (AMB) | payer OTHER, SELFPAY ==
--- NOTE | 2024-03-21 11:51 | A.OFFVISCC_ITS ---
Intake Visit Reasons: per Carlotta- Tele Allergies hydrocodone [From Vicodin] Allergy (Intermediate, Verified 10/26/23 07:10) hives clavulanic acid [From Augmentin] Allergy (Mild, Verified 10/26/23 07:10) Diarrhea doxycycline Allergy (Verified 10/26/23 07:10) Vomiting Sulfa (Sulfonamide Antibiotics) [SULFA(SULFONAMIDE ANTIBIOTICS)] Adverse Reaction (Intermediate, Verified 10/26/23 07:10) Itching sumatriptan [From IMITREX] Adverse Reaction (Mild, Verified 10/26/23 07:10) Vomiting HPI HPI per Carlotta- Tele: Details: Patient presents for [facility] treatment follow up via telehealth Currently attending [facility] several days per week Was considering transferring to another program as she felt they were not treating her right Processed some around this, and it seems like they may have been holding her accountable for her attendance and did not provide her with a letter she requested for her court date. Encouraged patient to think it through before moving onto another program. Reports that she continues to abstain from all substances---limited transportation playing a role Therapy once per week --[facility] Scott Lima (Cindy), psych prescriber at [facility] Review of Systems Const Reports as per HPI and Reports no additional complaints Telehealth Telehealth Telehealth Platform: Telephone Location of provider rendering services: practice address Location of patient: address on file Patient Identification confirmed using: Name, : Yes Telehealth method: voice only Patient verbally consented to treatment: Yes Patient verbally consented to billing insurance company: Yes Minutes spent on Phone/Video with Pt.: 15 Assessment & Plan Assessment & Plan (1) Opioid use disorder, moderate, in sustained remission: Code(s): F11.21 - Opioid dependence, in remission Category: Medical Plan: * continue suboxone (2) Cocaine use disorder: Code(s): F14.10 - Cocaine abuse, uncomplicated Category: Medical Plan: * continue topomax--follow up 4 weeks [facility] Medical History Opioid dependence, uncomplicated Cholelithiasis Asthma Steatosis, liver Diaphragmatic hernia PTSD (post-traumatic stress disorder) Depression Anxiety Bipolar 2 disorder Opioid use disorder Surgical History Hx of nasal septoplasty History of sleeve gastrectomy Hx of bilateral breast reduction surgery Hx of section Obesity Family History Father No problems noted. Mother No problems noted. Social History Housing: Apartment Are you a primary care rep to a significant other at home: No Do you presently have visiting nurse or other home services: No Alcohol intake: former Patient Tobacco Use Status: Former Tobacco user Cigarette Packs Per Day: 0.5 Cigarettes Per Day: 10.0 Years Smoked: 20 Substance Use Type: Crack/Cocaine, Heroin and Marijuana service: No Current occupational status: unemployed Cognitive needs: No Hearing needs: No Vision needs: No
== END 2024-03-21 13:21 | disposition home or self-care (01) ==
PROVIDERS: Visit Provider Nurse Practitioner Psychiatric/Mental Health
DX: F11.21 Opioid dependence, in remission (principal); F14.10 Cocaine abuse, uncomplicated
CPT/HCPCS: 99214

== ENCOUNTER → 2024-03-21 11:50 | Outpatient (BNVA) | payer OTHER, SELFPAY | PROVIDERS: Visit Provider Nurse Practitioner Psychiatric/Mental Health ==

== ENCOUNTER 2024-04-30 09:25 | Outpatient (AMB) | payer OTHER, SELFPAY ==
--- NOTE | 2024-04-30 09:26 | MHC.AM.SUB ---
Intake Visit Reasons: MAT Tele Allergies hydrocodone [From Vicodin] Allergy (Intermediate, Verified 10/26/23 07:10) hives clavulanic acid [From Augmentin] Allergy (Mild, Verified 10/26/23 07:10) Diarrhea doxycycline Allergy (Verified 10/26/23 07:10) Vomiting Sulfa (Sulfonamide Antibiotics) [SULFA(SULFONAMIDE ANTIBIOTICS)] Adverse Reaction (Intermediate, Verified 10/26/23 07:10) Itching sumatriptan [From IMITREX] Adverse Reaction (Mild, Verified 10/26/23 07:10) Vomiting HPI HPI MAT Tele: Details: [facility] Currently prescribed Suboxone 20mg QD for OUD Topomax 100mg BID for cocaine use disorder Reports she has been doing well with recovery --has been attending meetings. Will be chairing a meeting on 05/28 Has an appt at [facility] today to help with employment Still engaged with therapist Review of Systems Const Reports as per HPI and Reports no additional complaints Telehealth Telehealth Telehealth Platform: Telephone Location of provider rendering services: practice address Location of patient: address on file Patient Identification confirmed using: Name, : Yes Telehealth method: voice only Patient verbally consented to treatment: Yes Patient verbally consented to billing insurance company: Yes Minutes spent on Phone/Video with Pt.: 15 PFSH Medical History Opioid dependence, uncomplicated Cholelithiasis Asthma Steatosis, liver Diaphragmatic hernia PTSD (post-traumatic stress disorder) Depression Anxiety Bipolar 2 disorder Opioid use disorder Surgical History Hx of nasal septoplasty History of sleeve gastrectomy Hx of bilateral breast reduction surgery Hx of section Obesity Family History Father No problems noted. Mother No problems noted. Social History Housing: Apartment Are you a primary youth care specialist to a significant other at home: No Do you presently have visiting nurse or other home services: No Alcohol intake: former Patient Tobacco Use Status: Former Tobacco user Cigarette Packs Per Day: 0.5 Cigarettes Per Day: 10.0 Years Smoked: 20 Substance Use Type: Crack/Cocaine, Heroin and Marijuana service: No Current occupational status: unemployed Cognitive needs: No Hearing needs: No Vision needs: No Assessment & Plan Assessment & Plan (1) Opioid use disorder, moderate, in sustained remission: Code(s): F11.21 - Opioid dependence, in remission Category: Medical Plan: continue suboxone (2) Cocaine use disorder: Code(s): F14.10 - Cocaine abuse, uncomplicated Category: Medical Plan: continue topomax--follow up 4 weeks
--- OUTSIDE RECORDS SUMMARY | 2024-04-30 10:53 | XMS_ITS | Patient Health Record ---
Author Organization [facility] Address [address] [address] Care Team Providers Care Builder Beam Name Role Phone Lakeisha Graves Unavailable [phone] Allergies Allergen (clinical drug ingredient) Drug/Non Drug Allergy documented on EMR Reaction Allergy Type Onset Date Status Substance with sulfonamide structure and antibacterial mechanism of action (substance) SULFA (uncoded) MARTIN Allergy Active sumatriptan IMITREX NAUSEAU/VOMITIN G Drug Allergy Active acetaminophen / oxycodone PERCOCET Skin Rash Drug Allergy Active VICODIN Skin Rash Drug Allergy Active Reason For Referral No Information Medications Medication SIG (Take, Route, Fr equency, Duration) Notes Start Date End Date Status Valtrex 1GM 1 ORAL NEEDED for -3 [facility] 07/[place]/2013 Active Topamax 100MG 1 ORAL twice daily for -3 [facility] 09/25/2012 Active Adipex-P 37.5 1 Oral daily for -3 [facility] 01/04/2011 Active Percocet 5-325MG 1 ORAL every six hours for 10 [facility] 01/2014 Active KlonoPIN 0.5MG 1 ORAL AT HS/ NEEDED for -2 [facility] 11/28 Active EC-Naprosyn 500MG 1 ORAL twice daily for -3 [facility] 2012 Active cloNIDine HCl 0.1MG 1 ORAL at bedtime for -3 [facility] 07/31 Active Immunizations Vaccine Route Administration Date Status Comme nts Influenza, live, intranasal Intramuscular 11/28/2011 Babatunde ramos Social History Tobacco Use: Social History Observation Description Date Details (start date - stop date) Current Smoker NA - NA Tobacco Use/Smoking Question Answer Notes Are you a current smoker How many cigarettes a day do you smoke? 5 or les s Problems Problem Type SNOMED Code ICD Code Onset Dates Problem Status W/U Status Risk Notes Problem Anxiety disorder (646886761) Anxiety disorder, unspecified (F41.9) Active confirmed Problem Migraine (disorder) (67610722) Migraine, unspecified without mention of intractable migraine without mention of status migrainosus (346.90) Active confirmed Major Problem Diffuse cystic mastopathy (48542123) Diffuse cystic mastopathy (610.1) Active confirmed Other Problem Dysmenorrhea (729740357) Dysmenorrhea (625.3) Active confirmed Diag Problem Backache (604190854) Unspecified backache (724.5) Active confirmed Diag Plan Of Treatment Pending Test Test Name Order Date Test, Urine 05/16/2014 PAP SMEAR 05/16/2014 Insurance Providers Payer Name Payer Address Payer Phone Subscriber Number Group Number Insured Name Patient Relationship to Insured Coverage Start Date Coverage End Date [facility] [address] [place] [address] [phone] PEGGY TAMAYO Self - patient is the insured Medical (General) History Medical History History ICD Code Dysmenorrhea 625.3 migraine anxiety Surgical History Surgery Date(Month/Year) c section cervical cryotherapy 1999 bilateral breast reduction 2002
--- OUTSIDE RECORDS SUMMARY | 2024-04-30 10:53 | XMS_ITS | Clinical Summary ---
[facility] Organization [facility] Address [address] [place] [address] Care Team Providers Care Clinical Technologist Name Role Phone Unavailable Primary Care Provider Unavailabl e Surgical History Surgery Date Site/Laterality Comments SECTION 04/02/2006 PROCEDURE: HISTORICAL DELIVERY GASTRIC BYPASS 2019 PROCEDURE: [place] GASTRIC RSTCV W/BYP W/SM INT RCNSTJ LIMIT ABSRPJ; COMMENT: gastric sleeve OTHER SURGICAL HISTORY 2020 PROCEDURE: HISTORY OTHER; COMMENT: Nasal septoplasty BREAST REDUCTION Bilateral PROCEDURE: DE BREAST REDUCTION Medical History Medical History Date Comments Bipolar affective disorder (CMS/HCC) 10/16/2014 DX:Bipolar affective disorder (HCC) Anxiety DX:Anxiety Depression DX:Depression Migraine DX:Migraine Family History Medical History Relation Name Comments Asthma Daughter 1 Other: epilepsy Daughter 2 asthma, ADHD , Hypertension Father Other cancer Father skin Heart attack Maternal Grandmother d heart disease, 60's Thyroid disease Mother depression o r anxiety Heart attack Sister 1 half sister (mo m's side) Breast cancer Neg Hx Colon cancer Neg Hx Ovarian cancer Neg Hx Pancreatic cancer Neg Hx Prostate cancer Neg Hx Uterine cancer Neg Hx Relation Name Status Comments Daughter 1 Daughter 2 Daughter 3 Alive Father Alive Maternal Grandfather Maternal Grandmother Mother Alive Paternal Grandfather Paternal Grandmother Sister 1 Sister 2 Alive 1/2 Social History Tobacco Use Types Packs/Day Years Used Date Smoking Tobacco: Former Cigarettes Q uit: 04/08/2017 Smokeless Tobacco: Never Alcohol Use Standard Drinks/Week Comments Yes 0 (1 standard drink = 0.6 oz pur e alcohol) Sex and Gender Information Value Date Recorded Sex Assigned at Not on file Gender Identity Not on file Sexual Orientation Not on file Obstetrics History Last Filed Vital Signs Vital Sign Reading Time Taken Comments Blood Pressure - - Pulse - - Temperature - - Respiratory Rate - - Oxygen Saturation - - Inhaled Oxygen Concentration - - Weight 56.7 kg (125 lb) 12/28/2021 9:32 AM EDT Height 160 cm (5' 3 ) 12/28/2021 9:32 AM EDT Body Mass Index 22.14 12/28/2021 9:32 AM EDT Plan of Treatment Health Maintenance Due Date Last Done Comments Breast Cancer Screening 1983 Cervical Cancer Screening: P ap Smear 01/12/2004 Depression Screening 02/28/2022 HIV Screening 02/28/2022 Hepatitis C Screening 02/28/2022 Social Influencers of Health Screening 02/28/2022 COVID-19 Vaccine (4 - 2023-2 5 season) 2023 02/13/2021, 08/17/2020, 07/27/2020 Influenza Vaccine (#1) 2023 7, 12/28/2015 DTaP,Tdap,and Td Vaccines (3 - Td or Tdap) 10/23/2026 10/23/2016, 02/07/2010 MMR Vaccines Completed 03/30/1994, 04/19/1984 Hepatitis B Vaccines Completed 07/20/1997, 02/18/1997, 01/14/1997 HPV Vaccines Completed 03/18/2008, 11/18/2007, 09/17/2007 Pneumococcal Vaccine: Pediatrics (0 to 5 Years) and At-Risk Patients (6 to 64 Years) Aged Out 03/05/2012 No longer eligible b ased on patient's age to complete this topic HIB Vaccines Aged Out No longer eligi ble based on patient's age to complete this topic Hepatitis A Vaccines Aged Out No long er eligible based on patient's age to complete this topic IPV Vaccines Aged Out No longer eligi ble based on patient's age to complete this topic Meningococcal ACWY Vaccine Aged Out N o longer eligible based on patient's age to complete this topic RSV Immunization Patients Under 20 months Aged Out No longer eligible b ased on patient's age to complete this topic Varicella Vaccines Aged Out No longer eligible based on patient's age to complete this topic
--- OUTSIDE RECORDS SUMMARY | 2024-04-30 10:53 | XMS_ITS | Clinical Summary ---
Author Organization [facility] Address [address] [id number] Care Team Providers Care Hse Coordinator Name Role Phone Ren Banegas MD Primary Care Provider [phone] Allergies Active Allergy Reactions Criticality Noted Date Comments Amoxicillin-Pot Clavulanate Other (see comments) 10/18/2021 Hydrocodone-Acetaminophen Other (see comments) 10/18/2021 Sulfa (Sulfonamide Antibiotics) Yeast infection 10/18/2021 Sumatriptan Other (see comments) 10/18/2021 Medications ziprasidone (GEODON) 20 mg capsule ziprasidone 20 mg capsule Active valACYclovir (VALTREX) 1 gram tablet valacyclovir 1 gram tablet TAKE 2 TABLETS TWICE A DAY BY ORAL ROUTE FOR 1 DAY. Active tretinoin (RETIN-A) 0.05% cream Apply topically to the affected area nightly. 10/10/19 Active spironolactone (ALDACTONE) 100 mg tablet spironolactone 100 mg tablet TAKE 1 TABLET BY MOUTH EVERY DAY Active sodium chloride ([place] Saline) 0.65% nasal spray [place] Saline 0.65 % nasal spray aerosol Active simethicone (MYLICON,GAS-X) 180 mg capsule Anti-Gas Ultra Strength 180 mg capsule Active naproxen (NAPROSYN) 500 mg tablet Take 500 mg by mouth 2 times a day as needed. 10/14/19 Active levonorgestreL (Mirena) 20 mcg/24 hours (7 yrs) 52 mg 5 year intrauterine device Mirena 20 mcg/24 hours (7 yrs) 52 mg intrauterine device Active gabapentin (NEURONTIN) 300 mg capsule gabapentin 300 mg capsule TAKE 1 CAPSULE BY MOUTH THREE TIMES A DAY MOOD, ANXIETY Active erythromycin (ILOTYCIN) 0.5% ophthalmic ointment SMARTSI Sparingly Left Eye 3 Times Daily 04/21/19 22 Active docusate sodium (COLACE) 100 mg capsule docusate sodium 100 mg capsule Active cycloSPORINE (Restasis MultiDose) 0.05 % drops Restasis MultiDose 0.05 % eye drops Active cloNIDine (CATAPRES) 0.2 mg tablet clonidine HCl 0.2 mg tablet TAKE 1 TABLET BY MOUTH EVERYDAY AT BEDTIME Active cloNIDine (CATAPRES) 0.3 mg tablet clonidine HCl 0.3 mg tablet Active clonazePAM (KlonoPIN) 1 mg tablet clonazepam 1 mg tablet TAKE 1 TABLET BY MOUTH TWICE A DAY X28 DAYS Active acetaminophen (TYLENOL) 500 mg tablet Take 500 mg by mouth every 6 hours as needed. 10/14/19 22 Active azelaic acid 15 % gel Apply topically to the affected area once a day. 03/29/20 21 Active Active Problems No known active problems Social History Tobacco Use Types Packs/Day Years Used Date Smoking Tobacco: Former Cigarettes 0.5 12 2019 Smokeless Tobacco: Never Alcohol Use Standard Drinks/Week Comments Never 0 (1 standard drink = 0.6 oz pur e alcohol) Comments Unknown Sex and Gender Information Value Date Recorded Sex Assigned at Not on file Legal Sex Female 11:35 AM EDT Gender Identity Not on file Sexual Orientation Not on file Plan of Treatment Health Maintenance Due Date Last Done Comments Cervical Cancer Screening 1983 HIV Screening 1983 HPV and Pap Smear 1983 Hepatitis C Screening 1983 Pap Smear 1983 Varicella Vaccines (1 of 2 - 13+ 2-dose series) 01/12/1996 Mammogram 2023 COVID-19 Vaccine (2023-2 5 season) 2023 02/13/2021, 08/17/2020, 07/27/2020 Influenza Vaccine (#1) 2023 7, 12/28/2015 Alcohol/Substance Use Screening 04/02/2024 Depression Screening and Follow-Up 04/02/2024 Social Drivers of Health Annual Screening 04/02/2024 DTaP,Tdap,and Td Vaccines (3 - Td or Tdap) 10/23/2026 10/23/2016, 02/07/2010 RSV Vaccine (60+ years old and patients) (1 - 1-dose 75+ series) 2058 Hepatitis B Vaccines Completed 07/20/1997, 02/18/1997, 01/14/1997 Pneumococcal Vaccine: Pediatric (0-5 Years) and At-Risk Patients (6-64 Years) Aged Out 03/05/2012 No longer eligible based on patient's age to complete this topic Insurance [employer] Care Teams Hse Coordinator Relationship Specialty Start Date End Date Ren Banegas MD [address] [place] [address] PCP - General Family Medicine 10/07/21
--- OUTSIDE RECORDS SUMMARY | 2024-04-30 10:53 | XMS_ITS | Referral Summary ---
Author Organization [facility] Address [address] [id number] Care Team Providers Care Computer Trainer Name Role Phone Ren Banegas MD Primary Care Provider [phone] Allergies Active Allergy Reactions Criticality Noted Date [...] BY MOUTH EVERY DAY Active sodium chloride ([place] Saline) 0.65% nasal spray [place] Saline 0.65 % nasal spray aerosol Active [...] Orientation Not on file Plan of Treatment Not on file Insurance [employer] Care Teams Computer Trainer Relationship Specialty Start Date End Date Ren Banegas MD [address] [place] [address] PCP - General Family Medicine 10/07/21
== END 2024-04-30 09:44 | disposition home or self-care (01) ==
PROVIDERS: Visit Provider Nurse Practitioner Psychiatric/Mental Health
DX: F11.21 Opioid dependence, in remission (principal); F14.10 Cocaine abuse, uncomplicated
CPT/HCPCS: 98012

== ENCOUNTER 2024-09-05 13:48 | Outpatient (AMB) | payer OTHER, SELFPAY ==
--- OUTSIDE RECORDS SUMMARY | 2024-09-05 13:51 | XMS_ITS | Referral Summary ---
Author Organization [facility] Address [address] [id number] Care Team Providers Care Shredding Specialist Name Role Phone Ren Banegas MD Primary Care Provider [phone] Allergies Active Allergy Reactions Criticality Noted Date [...] BY MOUTH EVERY DAY Active sodium chloride ([place] Saline) 0.65% nasal spray [place] Saline 0.65 % nasal spray aerosol Active [...] on file Insurance [employer] Care Teams Shredding Specialist Relationship Specialty Start Date End Date Ren Banegas MD [address] [place] [address] PCP - General Family Medicine 10/07/21
[2024-09-05 14:08] VITALS: PULSE 98; O2SAT 98
--- NOTE | 2024-09-05 14:08 | A.OFFVIS_ITS ---
Vital Signs 09/05/24 14:08 Height 5 ft 2 in Pulse 98 Pulse Source Pulse Oximeter Pulse Oximetry (%) 98 Oxygen Delivery Method Room Air Intake Visit Reasons: MAT/Injection Allergies hydrocodone [From Vicodin] Allergy (Intermediate, Verified 09/05/24 14:08) hives clavulanic acid [From Augmentin] Allergy (Mild, Verified 09/05/24 14:08) Diarrhea doxycycline Allergy (Verified 09/05/24 14:08) Vomiting Sulfa (Sulfonamide Antibiotics) [SULFA(SULFONAMIDE ANTIBIOTICS)] Adverse Reaction (Intermediate, Verified 09/05/24 14:08) Itching sumatriptan [From IMITREX] Adverse Reaction (Mild, Verified 09/05/24 14:08) Vomiting HPI HPI MAT/Injection: Details: She stopped taking Brixadi because she was incarcerated. She has been taking 128 monthly. [facility] Medical History Opioid dependence, uncomplicated Cholelithiasis Asthma Steatosis, liver Diaphragmatic hernia PTSD (post-traumatic stress disorder) Depression Anxiety Bipolar 2 disorder Opioid use disorder Surgical History Hx of nasal septoplasty History of sleeve gastrectomy Hx of bilateral breast reduction surgery Hx of section Obesity Family History Father No problems noted. Mother No problems noted. Social History Housing: Apartment Are you a primary resident care technician to a significant other at home: No Do you presently have visiting nurse or other home services: No Alcohol intake: former Patient Tobacco Use Status: Former Tobacco user Cigarette Packs Per Day: 0.5 Cigarettes Per Day: 10.0 Years Smoked: 20 Substance Use Type: Crack/Cocaine, Heroin and Marijuana service: No Current occupational status: unemployed Cognitive needs: No Hearing needs: No Vision needs: No Female Reproductive History Menstrual Age of Menarche: 10 Review of Systems Const All systems reviewed & are unremarkable except as noted in HPI and below Physical Exam Vital Signs: Last Vital Signs Pulse 98 09/05/24 14:08 Pulse Ox 98 09/05/24 14:08 Oxygen Delivery Method Room Air 09/05/24 14:08 Office Meds Sublocade 300 mg/1.5 mL solution,extended release subcutaneous syringe Performing Provider: Altagracia Mcfadden MD Performing Location: [facility] Documented (not given) by: Altagracia Mcfadden MD on 09/05/24 14:34 Reason Not Given: No Longer Necessary buprenorphine 128 mg/0.36 mL solution,ext.rel.subcutaneous syringe Performing Provider: Altagracia Mcfadden MD Performing Location: [facility] Administered by: Altagracia Mcfadden MD on 09/05/24 14:34 Dose Route Admin Location Dispensed Lot Number Expiration Date NDC Dye Tank Tender 128 mg subcut 0.36 mL [id number] 07/30/25 66822-287-04 Xoft. Results AMB 14 Panel Urine Drug Screen Urine Marijuana (THC) Negative Last Edit by Edgard Cherry CMA on 09/05/24 14:14 Urine Cocaine Positive Last Edit by Edgard Cherry CMA on 09/05/24 14:14 Urine Morphine Negative Last Edit by Edgard Cherry CMA on 5 14:14 Urine Methamphetamine Negative Last Edit by Edgard Cherry CMA on 09/05/24 14:14 Urine Amphetamine Negative Last Edit by Edgard Cherry CMA on 09/05/24 14:14 Urine Benzodiazepine Positive Last Edit by Edgard Cherry CMA on 09/05/24 14:14 Urine Barbiturates Negative Last Edit by Edgard Cherry CMA on 09/05/24 14:14 Urine Methadone Negative Last Edit by Edgard Cherry CMA on 14:14 Urine Buprenorphine Positive Last Edit by Edgard Cherry CMA on 09/05/24 14:14 Urine Tricyclic Antidepressant Positive Last Edit by Edgard Cherry CMA on 09/05/24 14:14 Urine MDMA Negative Last Edit by Edgard Cherry CMA on 09/05/24 14 :14 Urine Oxycodone Negative Last Edit by Edgard Cherry CMA on 14:14 Urine Phencyclidine Negative Last Edit by Edgard Cherry CMA on 09/05/24 14:14 Urine Propoxyphene Negative Last Edit by Edgard Cherry CMA on 09/05/24 14:14 AMB Test Urine AMB Test Urine Negative Last Edit by Edgard Cherry CMA on 09/05/24 14:14 Results Reviewed Results Reviewed: Laboratory Last Values [facility] Negative 09/05/24 14:09 POC Urine Buprenorphine Positive 09/05/24 14:09 POC Urine Morphine Negative 09/05/24 14:09 POC Urine Oxycodone Negative 09/05/24 14:09 POC Urine Methadone Negative 09/05/24 14:09 POC Urine Propoxyphene Negative 09/05/24 14:09 POC Urine Barbiturates Negative 09/05/24 14:09 POC U Tricyclic Antidpr Positive 09/05/24 14:09 POC Urine PCP Negative 09/05/24 14:09 POC Ur Amphetamines Negative 09/05/24 14:09 POC Ur Methamphetamine Negative 09/05/24 14:09 POC Urine MDMA Negative 09/05/24 14:09 POC Ur Benzodiazepine Positive 09/05/24 14:09 POC Urine Cocaine Positive 09/05/24 14:09 POC Ur Marijuana (THC) Negative 09/05/24 14:09 Assessment & Plan Assessment & Plan (1) Opioid use disorder, moderate, in sustained remission: Code(s): F11.21 - Opioid dependence, in remission Category: Medical Plan: Brixadi given today. See in one month Orders: Orders AMB HCG Urine Test Today Z32.02 - Encounter for test, result negative AMB Buprenorphine Injection - Patient Supplied Today F11.21 - Opioid dependence, in remission AMB 14 Panel Urine Drug Screen Today Z51.81 - Encounter for therapeutic drug level monitoring Coding Level of Care Code Est Pt Level 3 (38410) Diagnoses Opioid use disorder, moderate, in sustained remission F11.21
== END 2024-09-05 14:27 | disposition home or self-care (01) ==
LOC: HO.HCC 13:49
PROVIDERS: Visit Provider Internal Medicine
DX: F11.21 Opioid dependence, in remission (principal); Z51.81 Encounter for therapeutic drug level monitoring; Z32.02 Encounter for pregnancy test, result negative
CPT/HCPCS: 99213

== ENCOUNTER → 2024-09-05 13:48 | Outpatient (BNVA) | payer OTHER, SELFPAY | PROVIDERS: Visit Provider Internal Medicine | DX: F11.21 Opioid dependence, in remission (principal); Z51.81 Encounter for therapeutic drug level monitoring | CPT/HCPCS: 80307; 81025; 96372; J0578 ==

== ENCOUNTER 2024-10-01 09:47 | Outpatient (AMB) | payer OTHER, SELFPAY ==
--- OUTSIDE RECORDS SUMMARY | 2024-10-01 10:08 | XMS_ITS | Clinical Summary ---
[facility] Address [address] [place] [address] Care Team Providers Care Station Mechanic Helper Name Role Phone Unavailable Primary Care Provider Unavailabl e Surgical History Surgery Date Site/Laterality Comments SECTION 04/02/2006 PROCEDURE: HISTORICAL DELIVERY GASTRIC BYPASS 2019 PROCEDURE: [place] GASTRIC RSTCV W/BYP W/SM INT RCNSTJ LIMIT ABSRPJ; COMMENT: gastric sleeve OTHER SURGICAL HISTORY 2020 PROCEDURE: HISTORY OTHER; COMMENT: Nasal septoplasty BREAST REDUCTION Bilateral PROCEDURE: [place] BREAST REDUCTION Medical History Medical History Date Comments Bipolar affective disorder ( [facility] V24, [facility] V28) 10/16/2014 DX:Bipolar affective disorde r ([facility]) Anxiety DX:Anxiety Depression DX:Depression Migraine DX:Migraine Family [...] at Not on file Legal Sex Female 10:55 AM EST Gender Identity Not on file Sexual Orientation [...] Influencers of Health Screening 02/28/2022 COVID-19 Vaccine (2023-2 5 season) 2023 02/13/2021, 08/17/2020, 07/27/2020 Influenza Vaccine (#1) 2024 7, 12/28/2015 DTaP,Tdap,and Td Vaccines (3 - [...] patient's age to complete this topic Meningococcal B Vaccine Aged Out No l onger eligible based on patient's age to complete this topic RSV Immunization Patients Under 20 months Aged Out No longer eligible b ased on patient's age to complete this topic Varicella Vaccines Aged Out No longer eligible based on patient's age to complete this topic
--- OUTSIDE RECORDS SUMMARY | 2024-10-01 10:08 | XMS_ITS | Referral Summary ---
Author Organization [facility] Address [address] [id number] Care Team Providers Care Tank Truck Loader Name Role Phone Ren Banegas MD Primary Care Provider [phone] Allergies Active Allergy Reactions Criticality Noted Date [...] BY MOUTH EVERY DAY Active sodium chloride ([place] Saline) 0.65% nasal spray [place] Saline 0.65 % nasal spray aerosol Active [...] on file Insurance [employer] Care Teams Tank Truck Loader Relationship Specialty Start Date End Date Ren Banegas MD [address] [place] [address] PCP - General Family Medicine 10/07/21
--- OUTSIDE RECORDS SUMMARY | 2024-10-01 10:08 | XMS_ITS | Patient Health Record ---
Author Organization [facility] Address [address] [place] [address] Care Team Providers Care Deicer Kit Assembler Name Role Phone Lakeisha Graves Unavailable [phone] Allergies Allergen (clinical drug ingredient) Drug/Non Drug [...] End Date Status Valtrex 1GM 1 ORAL NEEDED; Duration: -3 [facility] Active Topamax 100MG 1 ORAL twice daily; Duration: -3 [facility] 09/25/2012 Active Adipex-P 37.5 1 Oral daily; Duration: -3 [facility] Active Percocet 5-325MG 1 ORAL every six richard rs; Duration: 10 [facility] 03/12/2014 Active KlonoPIN 0.5MG 1 ORAL AT HS/ NEED ED; Duration: -2 [facility] 11/28/2012 Active EC-Naprosyn 500MG 1 ORAL twice daily; Duration: -3 [facility] 12/30/2012 Active cloNIDine HCl 0.1MG 1 ORAL at bedtime; Duration: -3 [facility] 07/31/2013 Active Immunizations Vaccine Route Administration Date Status [...] W/U Status Risk Notes Problem Anxiety disorder (451133147) Anxiety disorder, unspecified (F41.9) Active confirmed Problem Migraine (disorder) (43520602) Migraine, unspecified without mention of intractable migraine without mention of status migrainosus (346.90) Active confirmed Major Problem Diffuse cystic mastopathy (89010713) Diffuse cystic mastopathy (610.1) Active confirmed Other Problem Dysmenorrhea (820589043) Dysmenorrhea (625.3) Active confirmed Diag Problem Backache (375805056) Unspecified backache (724.5) Active confirmed Diag Plan Of Treatment Pending Test Test Name Order Date Test, Urine 05/16/2014 PAP SMEAR 05/16/2014 Insurance Providers Payer Name Payer Address Payer Phone Subscriber Number Group Number Insured Name Patient Relationship to Insured Coverage Start Date Coverage End Date [facility] [address] [facility] [place] [address] [phone] PEGGY TAMAYO Self - patient is the insured Medical (General) History Medical History History ICD Code Dysmenorrhea 625.3 migraine anxiety Surgical History Surgery Date(Month/Year) c section cervical cryotherapy 1999 bilateral breast reduction 2002
[2024-10-01 10:18] VITALS: BP 111/76; PULSE 103; O2SAT 97
--- NOTE | 2024-10-01 10:18 | AM.OFFVISNUR ---
Vital Signs 10/01/24 10:18 BP 111/76 Blood Pressure Location Lt brachial Position Sitting Pulse 103 H Pulse Source Pulse Oximeter Pulse Oximetry (%) 97 Oxygen Delivery Method Room Air Intake Visit Reasons: Injection Allergies hydrocodone (From Vicodin) Allergy (Intermediate, Verified 09/05/24 14:08) hives clavulanic acid (From Augmentin) Allergy (Mild, Verified 09/05/24 14:08) Diarrhea doxycycline Allergy (Verified 09/05/24 14:08) Vomiting Sulfa (Sulfonamide Antibiotics) (SULFA(SULFONAMIDE ANTIBIOTICS)) Adverse Reaction (Intermediate, Verified 09/05/24 14:08) Itching sumatriptan (From IMITREX) Adverse Reaction (Mild, Verified 09/05/24 14:08) Vomiting Nursing Note Aisha is here today for 4 week check in and Brixadi injection. Aisha is alert and oriented x4 and reports doing well in early recovery. She reports 32 days of sobriety and is attending an IOP at [facility] three days a week. She reports no negative symptoms from her last injection. Aisha has not had the opportunity to return to yet due to her schedule however she did request a recovery advocate (application will be sent to [facility]). She has a psychiatrist and therapist through [facility]. Aisha is sleeping well and her appetite is good; she is excited to be traveling next week with her daughters competitive [employer] team. Folllow up appointment made in for next injection. Office Meds buprenorphine 128 mg/0.36 mL solution,ext.rel.subcutaneous syringe Performing Provider: Altagracia Mcfadden MD Performing Location: [facility] Administered by: Gabbi Bradley RN on 10/01/24 10:21 Dose Route Admin Location Dispensed Lot Number Expiration Date [facility] Pbx Repairer 128 mg subcut NATHAN 0.36 mL [id number] 08/30/26 16166-680-00 SNADEC. Total Dispensed Waste 0.36 mL 0 % Comments: Pt here for monthly Brixadi injection. Pt denies any concern with previous injections and tolerated injection well. Educated on signs and symptoms of infection and encouraged to call [facility] with any related questions or concerns, pt verbalized understanding. Medication guide given per [facility] protocol. Follow-up scheduled in 4 weeks for next injection. Assessment & Plan Assessment & Plan Orders: Orders AMB Buprenorphine Injection - Patient Supplied Today F11.21 - Opioid dependence, in remission, F14.10 - Cocaine abuse, uncomplicated Coding
== END 2024-10-01 11:10 | disposition home or self-care (01) ==
LOC: HO.HCC 09:47
DX: F14.10 Cocaine abuse, uncomplicated (principal); F11.21 Opioid dependence, in remission

== ENCOUNTER → 2024-10-01 09:47 | Outpatient (BNVA) | payer OTHER, SELFPAY | DX: F11.21 Opioid dependence, in remission (principal); F14.10 Cocaine abuse, uncomplicated | CPT/HCPCS: 96372; J0578 ==

== ENCOUNTER 2024-11-04 14:33 | Outpatient (AMB) | payer OTHER, SELFPAY ==
[2024-11-04 14:40] VITALS: BP 118/70; PULSE 96; O2SAT 110
--- NOTE | 2024-11-04 14:40 | A.OFFVIS_ITS ---
Vital Signs 11/04/24 14:40 Height 5 ft 2 in BP 118/70 Pulse 96 Pulse Oximetry (%) 110 H Intake Visit Reasons: MAT Allergies hydrocodone (From Vicodin) Allergy (Intermediate, Verified 11/04/24 14:41) hives clavulanic acid (From Augmentin) Allergy (Mild, Verified 11/04/24 14:41) Diarrhea doxycycline Allergy (Verified 11/04/24 14:41) Vomiting Sulfa (Sulfonamide Antibiotics) (SULFA(SULFONAMIDE ANTIBIOTICS)) Adverse Reaction (Intermediate, Verified 11/04/24 14:41) Itching sumatriptan (From IMITREX) Adverse Reaction (Mild, Verified 11/04/24 14:41) Vomiting HPI Comments Details: The patient is a 39-year-old female presents for follow-up visit related to substance use disorder. The patient received a Brixadi injection month ago and presents today requesting to return to buprenorphine-naloxone films. 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 Denies use of opioids, alcohol, and other substances with the exception of vaping. [facility] Medical History Opioid dependence, uncomplicated Cholelithiasis Asthma Steatosis, liver Diaphragmatic hernia PTSD (post-traumatic stress disorder) Depression Anxiety Bipolar 2 disorder Opioid use disorder Surgical History Hx of nasal septoplasty History of sleeve gastrectomy Hx of bilateral breast reduction surgery Hx of section Obesity Family History Father No problems noted. Mother No problems noted. Social History Housing: Apartment Are you a primary senior care assistant to a significant other at home: No Do you presently have visiting nurse or other home services: No Alcohol intake: former Patient Tobacco Use Status: Former Tobacco user Cigarette Packs Per Day: 0.5 Cigarettes Per Day: 10.0 Years Smoked: 20 Substance Use Type: Crack/Cocaine, Heroin and Marijuana service: No Current occupational status: unemployed Cognitive needs: No Hearing needs: No Vision needs: No Female Reproductive History Menstrual Age of Menarche: 10 Review of Systems Const All systems reviewed & are unremarkable except as noted in HPI and below Physical Exam Vital Signs: Last Vital Signs Pulse 96 11/04/24 14:40 BP 118/70 11/04/24 14:40 Pulse Ox 110 H 11/04/24 14:40 Const General: cooperative and well groomed Orientation/consciousness: patient oriented x3 Limitations: no limitations Neuro General: patient oriented x3 Psych Appearance: well kempt Mental Status: mental status grossly normal Speech and movement: Normal speech and movement present Affect: Anxious affect present Attitude: cooperative Thought process: Normal thought process present Thought content: Normal thought content present Insight: Good insight present (Psych) Judgement: Good judgement present (Psych) Assessment & Plan Assessment & Plan (1) Opioid use disorder, moderate, in sustained remission: Code(s): F11.21 - Opioid dependence, in remission Category: Medical Plan The plan of care is to resume buprenorphine-naloxone 8-2 mg films twice per day. Reduce frequency of vaping and follow up in two weeks or sooner, if needed. Medications: Changed From buprenorphine-naloxone 8-2 mg (Suboxone) 1 film buccal BID 60 ea 0RF To buprenorphine-naloxone 8-2 mg (Suboxone) Take one film sublingually twice per day. 1 film sublingual BID 14 ea 0RF 14 days Discontinued buprenorphine ER Discontinued Reason: Patient Completed Course 128 mg (0.36 mL) subcut Q28D 30 days 0.72 mL 5RF Patient Instructions: - Resume buprenorphine-naloxone 8-2 mg films twice per day. - Reduce frequency of vaping and follow up in two weeks or sooner, if needed. - Call with questions, concerns, or to report side effects/new onset of symptoms to [facility]3]. - The patient verbalized understanding and agreed with plan of care. Coding Level of Care Code Est Pt Level 3 (54036) Diagnoses Opioid use disorder, moderate, in sustained remission F11.21
--- OUTSIDE RECORDS SUMMARY | 2024-11-04 15:11 | XMS_ITS | Clinical Summary ---
Author Organization [facility] Address [address] [place] [address] Care Team Providers Care Complex Director Name Role Phone Unavailable Primary Care Provider Unavailabl e Surgical History Surgery Date Site/Laterality Comments SECTION 04/02/2006 PROCEDURE: HISTORICAL DELIVERY GASTRIC BYPASS 2019 PROCEDURE: [place] GASTRIC RSTCV W/BYP W/SM INT RCNSTJ LIMIT ABSRPJ; COMMENT: gastric sleeve OTHER SURGICAL HISTORY 2020 PROCEDURE: HISTORY OTHER; COMMENT: Nasal septoplasty BREAST REDUCTION Bilateral PROCEDURE: [place] BREAST REDUCTION Medical History Medical History Date Comments Bipolar affective disorder ( [facility] V24, [facility] V28) 10/16/2014 DX:Bipolar affective disorde r ([facility]) Anxiety DX:Anxiety Depression DX:Depression Migraine DX:Migraine Family [...] Cervical Cancer Screening: P ap Smear 01/12/2004 HIV Screening 02/28/2022 Hepatitis C Screening 02/28/2022 Social Influencers of Health Screening 02/28/2022 COVID-19 Vaccine (4 - 2023-2 5 season) 2023 02/13/2021, 08/17/2020, 07/27/2020 Depression Screening 04/02/2024 Influenza Vaccine (#1) 2024 7, 12/28/2015 DTaP,Tdap,and Td Vaccines (3 - Td or Tdap) 10/23/2026 10/23/2016, 02/07/2010 MMR Vaccines Completed 03/30/1994, 04/19/1984 Hepatitis B Vaccines Completed 07/20/1997, 02/18/1997, 01/14/1997 HPV Vaccines Completed 03/18/2008, 11/18/2007, 09/17/2007 Pneumococcal Vaccine: Pediatrics (0 to 5 Years) and At-Risk Patients (6 to 49 Years) Aged Out 03/05/2012 No longer eligible [...]
--- OUTSIDE RECORDS SUMMARY | 2024-11-04 15:11 | XMS_ITS | Patient Health Record ---
Author Organization [facility] Address [address] [place] [address] Care Team Providers Care Public Health Nutritionist Name Role Phone Lakeisha Graves Unavailable [phone] Allergies Allergen (clinical drug ingredient) Drug/Non Drug [...] Valtrex 1GM 1 ORAL NEEDED; Duration: -3 [facility]- 014 Active Topamax 100MG 1 ORAL twice daily; Duration: -3 [facility]- 09/25/2012 Active Adipex-P 37.5 1 Oral daily; Duration: -3 [facility]- 1 Active Percocet 5-325MG 1 ORAL every six richard rs; Duration: 10 [facility]- 03/12/2014 Active KlonoPIN 0.5MG 1 ORAL AT HS/ NEED ED; Duration: -2 [facility]- 11/28/2012 Active EC-Naprosyn 500MG 1 ORAL twice daily; Duration: -3 [facility]- 12/30/2012 Active cloNIDine HCl 0.1MG 1 ORAL at bedtime; Duration: -3 [facility]- 07/31/2013 Active Immunizations Vaccine Route Administration Date [...] W/U Status Risk Notes Problem Anxiety disorder (893914815) Anxiety disorder, unspecified (F41.9) Active confirmed Problem Migraine, unspecified without mention of intractable migraine without mention of status migrainosus (346.90) Active confirmed Major Problem Diffuse cystic mastopathy (70239347) Diffuse cystic mastopathy (610.1) Active confirmed Other Problem Dysmenorrhea (368161719) Dysmenorrhea (625.3) Active confirmed Diag Problem Backache (406352785) Unspecified backache (724.5) Active confirmed Diag Plan Of Treatment Pending Test Test Name Order Date Test, Urine 05/16/2014 PAP SMEAR 05/16/2014 Insurance Providers Payer Name Payer Address Payer Phone Subscriber Number Group Number Insured Name Patient Relationship to Insured Coverage Start Date Coverage End Date [facility] [address] [facility] [place] [address] PEGGY TAMAYO Self - patient is the insured Medical (General) History Medical History History ICD Code Dysmenorrhea 625.3 migraine anxiety Surgical History Surgery Date(Month/Year) c section cervical cryotherapy 1999 bilateral breast reduction 2002
--- OUTSIDE RECORDS SUMMARY | 2024-11-04 15:11 | XMS_ITS | Referral Summary ---
Author Organization [facility] Address [address] [id number] Care Team Providers Care Information Technology Auditor Name Role Phone Ren Banegas MD Primary Care Provider [phone] Allergies Active Allergy Reactions Criticality Noted Date [...] BY MOUTH EVERY DAY Active sodium chloride (Taylor Saline) 0.65% nasal spray Taylor Saline 0.65 % nasal spray aerosol Active [...] on file Insurance [employer] Care Teams Information Technology Auditor Relationship Specialty Start Date End Date Ren Banegas MD [address] [place] [address] PCP - General Family Medicine 10/07/21
--- OUTSIDE RECORDS SUMMARY | 2024-11-04 15:11 | XMS_ITS | Clinical Summary ---
Author Organization [facility] Address [address] [address] Phone Care Team Providers Care Railroad Passenger Agent Name Role Phone Ren Banegas MD Primary Care Provider Allergies Active Allergy Reactions Criticality Noted Date Comments Amoxicillin-Pot Clavulanate 10/18/2021 Other reaction(s): Other (see comments) Doxycycline Anxiety,Diarrhea,Flu shing,GI Upset,Itching,Rash Low 04/16/2023 Hydrocodone-Acetaminoph en Rash Low 10/18/2021 Other reaction(s): Other (see comments) Oxycodone-Acetaminophen Rash Low 08/27/2022 Sulfa (Sulfonamide Antibiotics) Other (See Comments) 10/18/2021 Other reaction(s): Yeast infection Other Reaction(s): MARTIN Sumatriptan Other (See Comments) 10/18/2021 Other reaction(s): NAUSEAU/VOMITING Medications cloNIDine HCl (CATAPRES) 0.3 MG tablet Take 1 tablet by mouth daily. Active Active Problems Problem Noted Date Diagnosed Date Anxiety disorder 04/16/2023 Depression 04/16/2023 Diffuse cystic mastopathy 04/16/2023 Dysmenorrhea 04/16/2023 Migraine without aura 05/03/2010 Family History Medical History Relation Comments Cancer Father 2 Hypertension Father 2 Relation Status Comments Father 1 Alive Father 2 Social History Tobacco Use Types Packs/Day Years Used Date Smoking Tobacco: Former Comments:Quit smokin09/30 Education Answer Date Recorded Are you interested in more education? Not on trina e 07/28/2022 Are you concerned about learning? Not on file 07/28/2022 No 07/28/2022 No 07/28/2022 Digital Access Answer Date Recorded No 08/26/2022 No 08/26/2022 Reliable internet access at home? Not on file 08/26/2022 Device with a working camera? Not on file Comments Unknown Sex and Gender Information Value Date Recorded Sex Assigned at Female 07/11/2021 12:30 PM EDT Legal Sex Female 1:22 PM EDT Gender Identity Female 07/11/2021 12:30 PM EDT Sexual Orientation Straight 07/11/2021 12 :30 PM EDT Last Filed Vital Signs Vital Sign Reading Time Taken Comments Blood Pressure 118/82 03/01/2015 2:26 AM EST Pulse - - Temperature - - Respiratory Rate - - Oxygen Saturation - - Inhaled Oxygen Concentration - - Weight 70.5 kg (155 lb 6.4 oz) 03/01/2015 2:26 A M EST Height 158.8 cm (5' 2.5 ) 03/01/2015 2:26 AM EST Body Mass Index 27.97 03/01/2015 2:26 AM EST Plan of Treatment Health Maintenance Due Date Last Done Comments DEPRESSION SCREENING 1995 SMOKING Hx and SMOKELESS TOBACCO SCREENING 01/12/1996 HEPATITIS C SCREENING 2001 HIV ONE-TIME SCREENING (18-6 5 YEARS) 2001 PAP SMEAR 01/12/2004 MAMMOGRAM 2023 COVID-19 VACCINE (2023-2 5 season) 2023 Adult Td,Tdap Booster 10/23/2026 10/23/2016 , 02/07/2010 PNEUMOCOCCAL VACCINES (0-49 years) Aged Out 03/05/2012 No longer eligible b ased on patient's age to complete this topic HEPATITIS A VACCINES Aged Out No long er eligible based on patient's age to complete this topic HIB VACCINES Aged Out No longer eligi ble based on patient's age to complete this topic MENINGOCOCCAL VACCINES (ACWY) Aged Out No longer eligible based on patient's age to complete this topic MENINGOCOCCAL VACCINES (B) Aged Out N o longer eligible based on patient's age to complete this topic Medical Devices Not on file [place] [address] [place] [address] ACO Member Subscriber Plan / Payer (Ef fective 2021-Present) Name:Aisha Dempsey Relation to Subscriber:Self Name:Aisha Dempsey Payer ID:[id number] Group ID:[id number] Type:Medicaid Address: [address] [employer] [facility] [employer] [place] [address] [place] [address] ACO Member Subscriber Plan / Payer (Ef fective 2021-Present) Name:Davidreynoldcleopatra Aisha Donna Relation to Subscriber:Self Name:Aisha Dempsey Payer ID:[id number] Group ID:[id number] Type:Medicaid Address: [address] [facility] [employer] [place] [address] [place] [address] [place] [address] [place] [address] [employer]GETHER M[employer] Member Subscriber Plan / Payer (Ef fective 2021-Present) Name:Aisha Dempsey Relation to Subscriber:Self Name:Aisha Dempsey Payer ID:[id number] Group ID:[id number] Type:Medicaid Address: [address] [place], [place] [address]O [employer] [address] [place], [place] [address]O Member Subscriber Plan / Payer (Ef fective 2021-Present) Name:Aisha Dempsey Relation to Subscriber:Self Name:Aisha Dempsey Payer ID:[id number] Group ID:[id number] Type:Medicaid Address: [address] [place], [place] [address]O [facility] [employer] Care Teams Railroad Passenger Agent Relationship Specialty Start Date End Date Ren Banegas MD [address] [place] [address] PCP - General Family Medicine 07/11/21 Additional Source Comments The information contained in this document represents components of the legal health record. It is not the complete legal health record.[facility]
== END 2024-11-04 14:54 | disposition home or self-care (01) ==
LOC: HO.HCC 14:34
PROVIDERS: Visit Provider Clinical Nurse Specialist Psychiatric/Mental Health
DX: F11.21 Opioid dependence, in remission (principal)
CPT/HCPCS: 99213

== ENCOUNTER 2024-11-18 13:02 | Outpatient (AMB) | payer OTHER, SELFPAY ==
[2024-11-18 13:11] VITALS: BP 110/68; PULSE 96; O2SAT 98
--- NOTE | 2024-11-18 13:11 | MHC.OFFVIS ---
Vital Signs 11/18/24 13:11 Height 5 ft 2 in BP 110/68 Pulse 96 Pulse Oximetry (%) 98 Intake Visit Reasons: MAT Allergies hydrocodone (From Vicodin) Allergy (Intermediate, Verified 11/18/24 13:11) hives clavulanic acid (From Augmentin) Allergy (Mild, Verified 11/18/24 13:11) Diarrhea doxycycline Allergy (Verified 11/18/24 13:11) Vomiting Sulfa (Sulfonamide Antibiotics) (SULFA(SULFONAMIDE ANTIBIOTICS)) Adverse Reaction (Intermediate, Verified 11/18/24 13:11) Itching sumatriptan (From IMITREX) Adverse Reaction (Mild, Verified 11/18/24 13:11) Vomiting HPI Comments Details: The patient is a 39-year-old female presents for follow-up visit r/t BRITTNEE in remission with use of buprenorphine-naloxone. Denies use of opioids, alcohol, or other substances. Reports vaping nicotine. [facility] Medical History Opioid dependence, uncomplicated Cholelithiasis Asthma Steatosis, liver Diaphragmatic hernia PTSD (post-traumatic stress disorder) Depression Anxiety Bipolar 2 disorder Opioid use disorder Surgical History Hx of nasal septoplasty History of sleeve gastrectomy Hx of bilateral breast reduction surgery Hx of section Obesity Family History Father No problems noted. Mother No problems noted. Social History Housing: Apartment Are you a primary specialist wound care to a significant other at home: No Do you presently have visiting nurse or other home services: No Alcohol intake: former Patient Tobacco Use Status: Former Tobacco user Cigarette Packs Per Day: 0.5 Cigarettes Per Day: 10.0 Years Smoked: 20 Substance Use Type: Crack/Cocaine, Heroin and Marijuana service: No Current occupational status: unemployed Cognitive needs: No Hearing needs: No Vision needs: No Female Reproductive History Menstrual Age of Menarche: 10 Review of Systems Const All systems reviewed & are unremarkable except as noted in HPI and below Physical Exam Vital Signs: Last Vital Signs Pulse 96 11/18/24 13:11 BP 110/68 11/18/24 13:11 Pulse Ox 98 11/18/24 13:11 Assessment & Plan Assessment & Plan (1) Opioid use disorder: Code(s): F11.99 - Opioid use, unspecified with unspecified opioid-induced disorder Category: Medical Plan The plan of care is to continue with buprenorphine-naloxone 8-2 mg BID, reduce frequency of vaping and follow up in one month or sooner if needed. Medications: Changed From buprenorphine-naloxone 8-2 mg (Suboxone) Place 1 film on inside of (each) cheek, twice per day. 1 film sublingual BID 14 days 28 packets 0RF To buprenorphine-naloxone 8-2 mg (Suboxone) Place 1 film on inside of (each) cheek, twice per day. 1 film sublingual BID 30 days 30 packets 0RF Refilled buprenorphine-naloxone 8-2 mg (Suboxone) Place 1 film on inside of (each) cheek, twice per day. 1 film sublingual BID 60 packets 0RF 30 days Patient Instructions: - Continue with buprenorphine-naloxone as prescribed. - reduce frequency of vaping. - Call with questions, concerns, or to report side effects/new onset of symptoms to [facility]. Concerns - The patient verbalized understanding and agreed with plan of care. Coding Level of Care Code Est Pt Level 3 (68229) Diagnoses Opioid use disorder F11.99
--- OUTSIDE RECORDS SUMMARY | 2024-11-18 14:10 | XMS_ITS | Patient Health Record ---
Author Organization [facility] Address [address] [place] [address] Care Team Providers Care Combination Operator Name Role Phone Lakeisha Graves Unavailable [phone] Allergies Allergen (clinical drug ingredient) Drug/Non Drug [...] Valtrex 1GM 1 ORAL NEEDED; Duration: -3 [facility]- 014 Active Topamax 100MG 1 ORAL twice daily; Duration: -3 [facility]- 09/25/2012 Active Adipex-P 37.5 1 Oral daily; Duration: -3 [facility]- 1 Active Percocet 5-325MG 1 ORAL every six richard rs; Duration: 10 [facility]- 03/12/2014 Active KlonoPIN 0.5MG 1 ORAL AT HS/ NEED ED; Duration: -2 [facility]- 11/28/2012 Active EC-Naprosyn 500MG 1 ORAL twice daily; Duration: -3 [facility]- 12/30/2012 Active cloNIDine HCl 0.1MG 1 ORAL at bedtime; Duration: -3 [facility]- 07/31/2013 Active Immunizations Vaccine Route Administration Date [...] W/U Status Risk Notes Problem Anxiety disorder (485956983) Anxiety disorder, unspecified (F41.9) Active confirmed Problem Migraine, unspecified without mention of intractable migraine without mention of status migrainosus (346.90) Active confirmed Major Problem Diffuse cystic mastopathy (09377876) Diffuse cystic mastopathy (610.1) Active confirmed Other Problem Dysmenorrhea (142823980) Dysmenorrhea (625.3) Active confirmed Diag Problem Backache (378381015) Unspecified backache (724.5) Active confirmed Diag Plan Of Treatment Pending Test Test Name Order Date Test, Urine 05/16/2014 PAP SMEAR 05/16/2014 Insurance Providers Payer Name Payer Address Payer Phone Subscriber Number Group Number Insured Name Patient Relationship to Insured Coverage Start Date Coverage End Date [facility] [address] [place] [address] [phone] PEGGY TAMAYO Self - patient is the insured Medical (General) History Medical History History ICD Code Dysmenorrhea 625.3 migraine anxiety Surgical History Surgery Date(Month/Year) c section cervical cryotherapy 1999 bilateral breast reduction 2002
--- OUTSIDE RECORDS SUMMARY | 2024-11-18 14:10 | XMS_ITS | Clinical Summary ---
Author Organization [facility] Address [address] [id number] Care Team Providers Care Test Borer Helper Name Role Phone Ren Banegas MD Primary Care Provider [phone] Allergies Active Allergy Reactions Criticality Noted Date [...] BY MOUTH EVERY DAY Active sodium chloride ([place] Saline) 0.65% nasal spray [place] Saline 0.65 % nasal spray aerosol Active [...] Screening 1983 HPV and Pap Smear 1983 Pap Smear 1983 Varicella Vaccines (1 of 2 - 13+ 2-dose series) 01/12/1996 COVID-19 Vaccine ( - 2023-2 5 season) 2023 02/13/2021, 08/17/2020, 07/27/2020 Alcohol/Substance Use Screening 04/02/2024 Influenza Vaccine (#1) 2024 7, 12/28/2015 DTaP,Tdap,and Td Vaccines (3 - Td or Tdap) 10/23/2026 10/23/2016, 02/07/2010 RSV Vaccine (60+ years old and patients) (1 - 1-dose 75+ series) 2058 Hepatitis B Vaccines Completed 07/20/1997, 02/18/1997, 01/14/1997 Pneumococcal Vaccine: Pediatric (0-5 Years) and At-Risk Patients (6-50 Years) Aged Out 03/05/2012 No longer eligible based on patient's age to complete this topic Insurance [employer] Care Teams Test Borer Helper Relationship Specialty Start Date End Date Ren Banegas MD [address] [place] [id number] PCP - General Family Medicine 10/07/21
--- OUTSIDE RECORDS SUMMARY | 2024-11-18 14:10 | XMS_ITS | Clinical Summary ---
Author Organization [facility] Address [address] [place] [address] Care Team Providers Care Crabber Name Role Phone Unavailable Primary Care Provider Unavailabl e Surgical History Surgery Date Site/Laterality Comments SECTION 04/02/2006 PROCEDURE: HISTORICAL DELIVERY GASTRIC BYPASS 2019 PROCEDURE: [place] GASTRIC RSTCV W/BYP W/SM INT RCNSTJ LIMIT ABSRPJ; COMMENT: gastric sleeve OTHER SURGICAL HISTORY 2020 PROCEDURE: HISTORY OTHER; COMMENT: Nasal septoplasty BREAST REDUCTION Bilateral PROCEDURE: [place] BREAST REDUCTION Medical History Medical History Date Comments Bipolar affective disorder ( [facility] V24, [facility] V28) 10/16/2014 DX:Bipolar affective disorde r ([facility]) Anxiety DX:Anxiety Depression DX:Depression Migraine DX:Migraine Family [...]
--- OUTSIDE RECORDS SUMMARY | 2024-11-18 14:10 | XMS_ITS | Clinical Summary ---
Author Organization [facility] Address [address] [address] Phone Care Team Providers Care Appeals Court Associate Justice Name Role Phone Ren Banegas MD Primary [...] topic Medical Devices Not on [place] [address] [address] ACO Member Subscriber Plan / Payer (Ef fective 2021-Present) Name:Aisha Dempsey Relation to Subscriber:Self Name:Aisha Dempsey Payer ID:[id number] Group ID:[id number] Type:Medicaid Address: [address] [employer] [facility] [employer] [place] [address] [place] [address] ACO Member Subscriber Plan / Payer (Ef fective 2021-Present) Name:Davidreynoldcleopatra Aisha Donna Relation to Subscriber:Self Name:Aisha Dempsey Payer ID:[id number] Group ID:[id number] Type:Medicaid Address: [address] [facility] [place] [address] [place] [address] [place] [address] [address] [place] [address] ACO TOGETHER MCO Member Subscriber Plan / Payer (Ef fective 2021-Present) Name:Aisha Dempsey Relation to Subscriber:Self Name:Aisha Dempsey Payer ID:[id number] Group ID:[id number] Type:Medicaid Address: [address] [place], [place] [address]O TOGETHER [address] [place], [place] [address]O Member Subscriber Plan / Payer (Ef fective 2021-Present) Name:Aisha Dempsey Relation to Subscriber:Self Name:Aisha Dempsey Payer ID:[id number] Group ID:[id number] Type:Medicaid Address: [address] [place], [place] [address]O [facility] MCO Care Teams Appeals Court Associate Justice Relationship Specialty Start Date End Date Ren Banegas MD [address] [place] [address] PCP - General Family Medicine 07/11/21 Additional Source Comments The information contained in this document represents components of the legal health record. It is not the complete legal health record.[facility]
== END 2024-11-18 13:53 | disposition home or self-care (01) ==
LOC: HO.HCC 13:02
PROVIDERS: Visit Provider Clinical Nurse Specialist Psychiatric/Mental Health
DX: F11.99 Opioid use, unspecified with unspecified opioid-induced disorder (principal)
CPT/HCPCS: 99213

== ENCOUNTER 2024-12-25 15:36 | Outpatient (AMB) | payer OTHER, SELFPAY ==
--- NOTE | 2024-12-25 15:29 | A.OFFVISCC_ITS ---
Intake Visit Reasons: MAT Allergies hydrocodone (From Vicodin) Allergy (Intermediate, Verified 11/18/24 13:11) hives clavulanic acid (From Augmentin) Allergy (Mild, Verified 11/18/24 13:11) Diarrhea doxycycline Allergy (Verified 11/18/24 13:11) Vomiting Sulfa (Sulfonamide Antibiotics) (SULFA(SULFONAMIDE ANTIBIOTICS)) Adverse Reaction (Intermediate, Verified 11/18/24 13:11) Itching sumatriptan (From IMITREX) Adverse Reaction (Mild, Verified 11/18/24 13:11) Vomiting Medication List - Last Reconciled 12/25/24 by Sarah Monge [employer] buprenorphine-naloxone 8-2 mg (Suboxone) 1 film sublingual BID 30 days clonidine HCl 0.3 mg PO BEDTIME 1 month diazepam 1 tab PO TID PRN levonorgestrel (Mirena) intrauterine naloxone 4 mg/actuation (Narcan) 4 mg intranasal Q2M PRN paliperidone ER 6 mg PO BEDTIME quetiapine 50 mg PO TID PRN topiramate 100 mg PO BID 30 days HPI Comments Details: The patient is a 39-year-old female f/u for telehealth visit for BRITTNEE in remission with buprenorphine-naloxone 8-2 mg BID. Denies use of opiates, alcohol, and other substances. Reports a recent arrest and requesting a letter confirming engagement in treatment for substance use disorder for probation. [facility] Medical History Opioid dependence, uncomplicated Cholelithiasis Asthma Steatosis, liver Diaphragmatic hernia PTSD (post-traumatic stress disorder) Depression Anxiety Bipolar 2 disorder Opioid use disorder Surgical History Hx of nasal septoplasty History of sleeve gastrectomy Hx of bilateral breast reduction surgery Hx of section Obesity Family History Father No problems noted. Mother No problems noted. Social History Housing: Apartment Are you a primary career discovery teacher to a significant other at home: No Do you presently have visiting nurse or other home services: No Alcohol intake: former Patient Tobacco Use Status: Former Tobacco user Cigarette Packs Per Day: 0.5 Cigarettes Per Day: 10.0 Years Smoked: 20 Substance Use Type: Crack/Cocaine, Heroin and Marijuana service: No Current occupational status: unemployed Cognitive needs: No Hearing needs: No Vision needs: No Assessment & Plan Assessment & Plan (1) Opioid use disorder, moderate, in sustained remission: Code(s): F11.21 - Opioid dependence, in remission Category: Medical Plan The patient will continue her established buprenorphine-naloxone 8-2 mg BID. She is stable and has no new concerns with her treatment. A refill of her medication has been ordered, and a follow-up in one month is planned to monitor her continued progress and maintain stability in her treatment. T/w informed patient of the requirement to sign a release of information for the letter request. Medications: Refilled buprenorphine-naloxone 8-2 mg (Suboxone) Place 1 film on inside of (each) cheek, twice per day. 1 film sublingual BID 60 packets 0RF 30 days Patient Instructions: - Continue with buprenorphine-naloxone as prescribed. - Follow-up in 1 month or sooner if needed. - Call with questions, concerns, or to report side effects/new onset of symptoms to [facility]. - The patient verbalized understanding and agreed with plan of care. Scribe Plan - Not visible on output: Patient was informed and verbally consented to the use of an ambient scribe for clinical note documentation during this visit.
--- OUTSIDE RECORDS SUMMARY | 2024-12-25 19:41 | XMS_ITS | Patient Health Record ---
Author Organization [facility] Address [address] [place] [address] Care Team Providers Care General Office Associate Name Role Phone Lakeisha Graves Unavailable [phone] Allergies Allergen (clinical drug ingredient) Drug/Non Drug [...] Valtrex 1GM 1 ORAL NEEDED; Duration: -3 [facility] [place] Active Topamax 100MG 1 ORAL twice daily; Duration: -3 [facility] [place] 09/25/2012 Active Adipex-P 37.5 1 Oral daily; Duration: -3 [facility] [place] Active Percocet 5-325MG 1 ORAL every six richard rs; Duration: 10 [facility] [place] 03/12/2014 Active KlonoPIN 0.5MG 1 ORAL AT HS/ NEED ED; Duration: -2 [facility] [place] 11/28/2012 Active EC-Naprosyn 500MG 1 ORAL twice daily; Duration: -3 [facility] [place] 12/30/2012 Active cloNIDine HCl 0.1MG 1 ORAL at bedtime; Duration: -3 [facility] [place] 07/31/2013 Active Immunizations Vaccine Route [...] W/U Status Risk Notes Problem Anxiety disorder (537013247) Anxiety disorder, unspecified (F41.9) Active confirmed Problem Migraine (disorder) (34067841) Migraine, unspecified without mention of intractable migraine without mention of status migrainosus (346.90) Active confirmed Major Problem Diffuse cystic mastopathy (00389567) Diffuse cystic mastopathy (610.1) Active confirmed Other Problem Dysmenorrhea (394109134) Dysmenorrhea (625.3) Active confirmed Diag Problem Backache (960199556) Unspecified backache (724.5) Active confirmed Diag Plan Of Treatment Pending Test Test Name Order Date Test, Urine 05/16/2014 PAP SMEAR 05/16/2014 Insurance Providers Payer Name Payer Address Payer Phone Subscriber Number Group Number Insured Name Patient Relationship to Insured Coverage Start Date Coverage End Date [facility] [address] [place] [address] [phone] PEGGY TAMAYO Self - patient is the insured Medical (General) History Medical History History ICD Code Dysmenorrhea 625.3 migraine anxiety Surgical History Surgery Date(Month/Year) c section cervical cryotherapy 1999 bilateral breast reduction 2002
--- OUTSIDE RECORDS SUMMARY | 2024-12-25 19:42 | XMS_ITS | Clinical Summary ---
Author Organization [facility] Address [address] [address] Phone Care Team Providers Care Boot And Shoe Repairman Name Role Phone Ren Banegas MD Primary [...] YEARS) 2001 PAP SMEAR 01/12/2004 MAMMOGRAM 2023 INFLUENZA VACCINE (#1) 2024 7, 12/28/2015 COVID-19 VACCINE (1 - 2023-2 5 season) 2024 Adult Td,Tdap Booster 10/23/2026 10/23/2016 , 02/07/2010 [...] topic Medical Devices Not on file Insurance [place] [address] ACO Member Subscriber Plan / Payer (Ef fective 2021-Present) Name:Aisha Dempsey Relation to Subscriber:Self Name:Aisha Dempsey Payer ID:[id number] Group ID:[id number] Type:Medicaid [address] [place] [address] ACO [employer] [facility] TOGETHER MCO ACO TOGETHER [address] [place], [place] [address]O Member Subscriber Plan / Payer (Ef fective 2021-Present) Name:Aisha Dempsey Relation to Subscriber:Self Name:Aisha Dempsey Payer ID:[id number] Group ID:[id number] Type:Medicaid Address: [address] [place] [address] ACO [employer] [place] [facility] Member Subscriber Plan / Payer (Ef fective 2021-Present) Name:Aisha Dempsey Relation to Subscriber:Self Name:Aisha Dempsey Payer ID:[id number] Group ID:[id number] Type:Medicaid Address: [address] [place] [employer] M[employer] [facility] MCO Care Teams Boot And Shoe Repairman Relationship Specialty Start Date End Date Ren Banegas MD [address] [place] [address] PCP - General Family Medicine 07/11/21 Additional Source Comments The information contained in this document represents components of the legal health record. It is not the complete legal health record.[facility]
--- OUTSIDE RECORDS SUMMARY | 2024-12-25 19:42 | XMS_ITS | Clinical Summary ---
Author Organization [facility] Address [address] [id number] Care Team Providers Care Lead Nuclear Medicine Technologist Name Role Phone Ren Banegas MD Primary Care Provider [phone] Allergies Active Allergy Reactions Criticality Noted Date [...] BY MOUTH EVERY DAY Active sodium chloride ([place] Saline) 0.65% nasal spray [place] Saline 0.65 % nasal spray aerosol Active [...] Health Maintenance Due Date Last Done Comments HIV Screening 1983 Varicella Vaccines (1 of 2 - 13+ 2-dose series) 01/12/1996 Alcohol/Substance Use Screening 04/02/2024 COVID-19 Vaccine (4 - 2024-2 6 season) 2024 02/13/2021, 08/17/2020, 07/27/2020 Influenza Vaccine (#1) 2024 [...] this topic Insurance [employer] Care Teams Lead Nuclear Medicine Technologist Relationship Specialty Start Date End Date Ren Banegas MD [address] [place] [id number] PCP - General Family Medicine 10/07/21
== END 2024-12-25 15:37 | disposition home or self-care (01) ==
LOC: HO.HCC 15:36
PROVIDERS: Visit Provider Clinical Nurse Specialist Psychiatric/Mental Health
DX: F11.21 Opioid dependence, in remission (principal)
CPT/HCPCS: 98013

== ENCOUNTER 2025-01-29 09:41 | Outpatient (AMB) | payer OTHER, SELFPAY ==
[2025-01-29 09:51] VITALS: BP 120/70; PULSE 100; O2SAT 97
--- NOTE | 2025-01-29 09:51 | A.OFFVIS_ITS ---
Vital Signs 01/29/25 09:51 BP 120/70 Pulse 100 Pulse Oximetry (%) 97 Intake Visit Reasons: MAT Allergies hydrocodone (From Vicodin) Allergy (Intermediate, Verified 01/29/25 09:52) hives clavulanic acid (From Augmentin) Allergy (Mild, Verified 01/29/25 09:52) Diarrhea doxycycline Allergy (Verified 01/29/25 09:52) Vomiting Sulfa (Sulfonamide Antibiotics) (SULFA(SULFONAMIDE ANTIBIOTICS)) Adverse Reaction (Intermediate, Verified 01/29/25 09:52) Itching sumatriptan (From IMITREX) Adverse Reaction (Mild, Verified 01/29/25 09:52) Vomiting HPI Comments Details: A 40-year-old female presents for a follow-up visit r/t BRITTNEE in sustained remission with buprenorphine-naloxone 8-2 mg BID. Denies use of opiates, alcoh ol, and other substances. Reports vaping for nicotine and continues to live at parent's home. Engages in conversation regarding actively looking for work. Notes difficulty with transportation due to no license. [facility] Medical History Opioid dependence, uncomplicated Cholelithiasis Asthma Steatosis, liver Diaphragmatic hernia PTSD (post-traumatic stress disorder) Depression Anxiety Bipolar 2 disorder Opioid use disorder Surgical History Hx of nasal septoplasty History of sleeve gastrectomy Hx of bilateral breast reduction surgery Hx of section Obesity Family History Father No problems noted. Mother No problems noted. Social History Housing: Apartment Are you a primary director of career resources to a significant other at home: No Do you presently have visiting nurse or other home services: No Alcohol intake: former Patient Tobacco Use Status: Former Tobacco user Cigarette Packs Per Day: 0.5 Cigarettes Per Day: 10.0 Years Smoked: 20 Substance Use Type: Crack/Cocaine, Heroin and Marijuana service: No Current occupational status: unemployed Cognitive needs: No Hearing needs: No Vision needs: No Female Reproductive History Menstrual Age of Menarche: 10 Review of Systems Const All systems reviewed & are unremarkable except as noted in HPI and below Physical Exam Vital Signs: Last Vital Signs Pulse 97 01/29/25 09:51 BP 120/70 01/29/25 09:51 Pulse Ox 97 01/29/25 09:51 Const General: cooperative Assessment & Plan Assessment & Plan (1) Opioid use disorder, moderate, in sustained remission: Code(s): F11.21 - Opioid dependence, in remission Category: Medical Plan The plan of care is to continue with buprenorphine-naloxone 8-2 mg BID. Engage in risk reduction activities to minimize vaping for nicotine. Follow-up in 2 m [facility] or sooner if needed. Medications: Changed From buprenorphine-naloxone 8-2 mg (Suboxone) Place 1 film on inside of (each) cheek, twice per day. 1 film sublingual BID 30 days 60 packets 0RF To buprenorphine-naloxone 8-2 mg (Suboxone) One film sublingually twice per day 1 film sublingual BID 60 packets 1RF 30 days Patient Instructions: - Continue with buprenorphine-naloxone as prescribed. - Engage in risk reduction activities to minimize vaping for nicotine. - Follow-up in 2 months or sooner if needed. - Call with questions, concerns, or to report side effects/new onset of symptoms to [facility]. - The patient verbalized understanding and agreed with plan of care. Coding Level of Care Code Est Pt Level 3 (71101) Diagnoses Opioid use disorder, moderate, in sustained remission F11.21
--- OUTSIDE RECORDS SUMMARY | 2025-01-29 11:19 | XMS_ITS | Clinical Summary ---
[facility] Organization [facility] Address [address] [place] [address] Care Team Providers Care Land Acquisition Specialist Name Role Phone Unavailable Primary Care Provider Unavailabl e Surgical History Surgery Date Site/Laterality Comments SECTION 04/02/2006 PROCEDURE: HISTORICAL DELIVERY GASTRIC BYPASS 2019 PROCEDURE: UT GASTRIC RSTCV W/BYP W/SM INT RCNSTJ LIMIT ABSRPJ; COMMENT: gastric sleeve OTHER SURGICAL HISTORY 2020 PROCEDURE: HISTORY OTHER; COMMENT: Nasal septoplasty BREAST REDUCTION Bilateral PROCEDURE: UT BREAST REDUCTION Medical History Medical History Date Comments Bipolar affective disorder ( [facility] V24, [facility] V28) 10/16/2014 DX:Bipolar affective disorde r ([facility]) Anxiety DX:Anxiety Depression DX:Depression Migraine DX:Migraine Family [...] 02/28/2022 Social Influencers of Health Screening 02/28/2022 Depression Screening 04/02/2024 COVID-19 Vaccine (4 - 2024-2 6 season) 2024 02/13/2021, 08/17/2020, 07/27/2020 Influenza Vaccine (#1) 2024 7, 12/28/2015 DTaP,Tdap,and Td Vaccines (3 - Td or Tdap) 10/23/2026 10/23/2016, 02/07/2010 RSV Immunization Adult Patients (1 - 1-dose 75+ series) 2058 MMR Vaccines Completed 03/30/1994, 04/19/1984 Hepatitis B [...]
--- OUTSIDE RECORDS SUMMARY | 2025-01-29 11:19 | XMS_ITS | Patient Health Record ---
Author Organization [facility] Address [address] [place] [address] Care Team Providers Care Plate Worker Helper Name Role Phone Lakeisha Graves Unavailable [phone] Allergies Allergen (clinical drug ingredient) Drug/Non Drug [...] Valtrex 1GM 1 ORAL NEEDED; Duration: -3 [facility] [place] 014 Active Topamax 100MG 1 ORAL twice daily; Duration: -3 [facility] [place] 09/25/2012 Active Adipex-P 37.5 1 Oral daily; Duration: -3 [facility] [place] 1 Active Percocet 5-325MG 1 ORAL every six richard rs; Duration: 10 [facility] [place]- 03/12/2014 Active KlonoPIN 0.5MG 1 ORAL AT HS/ NEED ED; Duration: -2 [facility] [place]- 11/28/2012 Active EC-Naprosyn 500MG 1 ORAL twice daily; Duration: -3 [facility] [place]- 12/30/2012 Active cloNIDine HCl 0.1MG 1 ORAL at bedtime; Duration: -3 [facility] [place]- 07/31/2013 Active Immunizations Vaccine Route Administration Date [...] W/U Status Risk Notes Problem Anxiety disorder (175874832) Anxiety disorder, unspecified (F41.9) Active confirmed Problem Migraine (disorder) (22873516) Migraine, unspecified without mention of intractable migraine without mention of status migrainosus (346.90) Active confirmed Major Problem Diffuse cystic mastopathy (36041004) Diffuse cystic mastopathy (610.1) Active confirmed Other Problem Dysmenorrhea (413003256) Dysmenorrhea (625.3) Active confirmed Diag Problem Backache (986785580) Unspecified backache (724.5) Active confirmed Diag Plan Of Treatment Pending Test Test Name Order Date Test, Urine 05/16/2014 PAP SMEAR 05/16/2014 Insurance Providers Payer Name Payer Address Payer Phone Subscriber Number Group Number Insured Name Patient Relationship to Insured Coverage Start Date Coverage End Date [facility] [address] [place] [address] PEGGY TAMAYO Self - patient is the insured Medical (General) History Medical History History ICD Code Dysmenorrhea 625.3 migraine anxiety Surgical History Surgery Date(Month/Year) c section cervical cryotherapy 1999 bilateral breast reduction 2002
--- OUTSIDE RECORDS SUMMARY | 2025-01-29 11:19 | XMS_ITS | Clinical Summary ---
Author Organization [facility] Address [address] [address] Phone Care Team Providers Care Boat Rental Clerk Name Role Phone Ren Banegas MD Primary [...] 2024 7, 12/28/2015 COVID-19 VACCINE (1 - 2024-2 6 season) 2024 Adult Td,Tdap Booster 10/23/2026 10/23/2016 [...] topic Medical Devices Not [place] [address] [address] [address] ACO Member Subscriber Plan / Payer (Ef fective 2021-Present) Name:Aisha Dempsey Relation to Subscriber:Self Name:Aisha Dempsey Payer ID:[id number] Group ID:[id number] Type:Medicaid Address[address] [place] [address] [address] ACO [employer] [facility] M[facility] ACO TOGETHER [address] [place], [place] [address] Member Subscriber Plan / Payer (Ef fective 2021-Present) Name:Aisha Dempsey Relation to Subscriber:Self Name:Aisha Dempsey Payer ID:[id number] Group ID:[id number] Type:Medicaid Address: [address] [place] [place] [address] ACO [employer] [place] [employer] [facility] Member Subscriber Plan / Payer (Ef fective 2021-Present) Name:Aisha Dempsey Relation to Subscriber:Self Name:Aisha Dempsey Payer ID:[id number] Group ID:[id number] Type:Medicaid Address: [address] [place] [employer] M[facility] MCO Care Teams Boat Rental Clerk Relationship Specialty Start Date End Date Ren Banegas MD PCP - General Family Medicine 07/11/21 Additional Source Comments The information contained in this document represents components of the legal health record. It is not the complete legal health record.[facility]
--- OUTSIDE RECORDS SUMMARY | 2025-01-29 11:20 | XMS_ITS | Clinical Summary ---
Author Organization [facility] Address [address] [id number] Care Team Providers Care Fisheries Officer Name Role Phone Ren Banegas MD Primary Care Provider [phone] Allergies Active Allergy Reactions Criticality Noted Date [...] BY MOUTH EVERY DAY Active sodium chloride ([place] Saline) 0.65% nasal spray [place] Saline 0.65 % nasal spray aerosol Active [...] - 13+ 2-dose series) 01/12/1996 Mammogram 2023 Alcohol/Substance Use Screening 04/02/2024 COVID-19 Vaccine (4 [...] to complete this topic Insurance [place] [address] Care Teams Fisheries Officer Relationship Specialty Start Date End Date Ren Banegas MD [address] [place] [id number] PCP - General Family Medicine 10/07/21
== END 2025-01-29 09:51 | disposition home or self-care (01) ==
PROVIDERS: Visit Provider Clinical Nurse Specialist Psychiatric/Mental Health
DX: F11.21 Opioid dependence, in remission (principal)
CPT/HCPCS: 99213

== ENCOUNTER 2025-03-25 10:41 | Outpatient (AMB) | payer OTHER, SELFPAY ==
--- NOTE | 2025-03-25 10:21 | A.OFFVISCC_ITS ---
Vital Signs 03/25/25 10:42 BP 122/68 Pulse 78 Pulse Oximetry (%) 98 Intake Visit Reasons: MAT Allergies hydrocodone (From Vicodin) Allergy (Intermediate, Verified 03/25/25 10:43) hives clavulanic acid (From Augmentin) Allergy (Mild, Verified 03/25/25 10:43) Diarrhea doxycycline Allergy (Verified 03/25/25 10:43) Vomiting Sulfa (Sulfonamide Antibiotics) (SULFA(SULFONAMIDE ANTIBIOTICS)) Adverse Reaction (Intermediate, Verified 03/25/25 10:43) Itching sumatriptan (From IMITREX) Adverse Reaction (Mild, Verified 03/25/25 10:43) Vomiting HPI HPI MAT: Details: She is doing well with OUD and back to taking Suboxone strips She has stopped Brixadi because she felt like she was getting stabbed all the time Her 15 year old cat . She is looking at jobs at homes and other places She has no license until July at least she says Review of Systems Const All systems reviewed & are unremarkable except as noted in HPI and below Physical Exam Vital Signs: Last Vital Signs Pulse 78 03/25/25 10:42 BP 122/68 03/25/25 10:42 Pulse Ox 98 03/25/25 10:42 Const General: cooperative [facility] Medical History Opioid dependence, uncomplicated Cholelithiasis Asthma Steatosis, liver Diaphragmatic hernia PTSD (post-traumatic stress disorder) Depression Anxiety Bipolar 2 disorder Opioid use disorder Surgical History Hx of nasal septoplasty History of sleeve gastrectomy Hx of bilateral breast reduction surgery Hx of section Obesity Family History Father No problems noted. Mother No problems noted. Social History Housing: Apartment Are you a primary patient centered care specialist to a significant other at home: No Do you presently have visiting nurse or other home services: No Alcohol intake: former Patient Tobacco Use Status: Former Tobacco user Cigarette Packs Per Day: 0.5 Cigarettes Per Day: 10.0 Years Smoked: 20 Substance Use Type: Crack/Cocaine, Heroin and Marijuana service: No Current occupational status: unemployed Cognitive needs: No Hearing needs: No Vision needs: No Assessment & Plan Assessment & Plan (1) Opioid use disorder: Comment: She is doing well with Suboxone Code(s): F11.99 - Opioid use, unspecified with unspecified opioid-induced disorder Category: Medical Plan: Continue Suboxone strips See in two months Plan See two months,check urine screen then Medications: New buprenorphine-naloxone 8-2 mg (Suboxone) 1 film sublingual BID 60 ea 1RF 30 days
[2025-03-25 10:42] VITALS: BP 122/68; PULSE 78; O2SAT 98
--- OUTSIDE RECORDS SUMMARY | 2025-03-25 10:45 | XMS_ITS | Clinical Summary ---
Author Organization [facility] Address [address] [place] [address] Care Team Providers Care Heel Padder Name Role Phone Cele Freire MD Unavailable [phone] Cele Freire MD Primary Care Provider + Allergies No known active allergies Social History Tobacco Use Types Packs/Day Years Used Date Smoking Tobacco: Never Assessed Comments Unknown Sex and Gender Information Value Date Recorded Sex Assigned at Not on file Legal Sex Female 10:11 AM EDT Gender Identity Not on file Sexual Orientation Not on file Last Filed Vital Signs Vital Sign Reading Time Taken Comments Blood Pressure 121/86 11/18/2023 10:20 AM EDT Pulse 107 11/18/2023 10:20 AM EDT Temperature 36.3 C (97.4 F) 11/18/2023 10:20 AM EDT Respiratory Rate 18 11/18/2023 10:20 AM EDT Oxygen Saturation 96% 11/18/2023 10:20 AM EDT Inhaled Oxygen Concentration - - Weight 44.9 kg (99 lb) 11/18/2023 10:20 AM EDT Height 157.5 cm (5' 2 ) 11/18/2023 10:20 AM EDT Body Mass Index 18.11 11/18/2023 10:20 AM EDT Plan of Treatment Health Maintenance Due Date Last Done Comments Lipid Panel 1983 Depression Screening 1995 Hepatitis C Screening 2001 Pap Smear 01/12/2004 Cervical Cancer Screening 2013 HPV/Cotest 2013 DTaP,Tdap,and Td Vaccines (2 - Td or Tdap) 02/08/2020 02/07/2010 Breast Cancer Screening 2023 Blood Pressure 11/17/2024 11/18/2023 COVID-19 Vaccine (2024-2 6 season) 2024 Influenza Vaccine (#1) 2024 Pneumococcal Vaccine Aged Out 03/05/2012 No long er eligible based on patient's age to complete this topic Meningococcal B Vaccines Aged Out No longer eligible based on patient's age to complete this topic Meningococcal Vaccines Aged Out No lo nger eligible based on patient's age to complete this topic Insurance [employer] [address] [employer] [facility] Care Teams Heel Padder Relationship Specialty Start Date End Date Cele Friere MD [address] [place] [id number] PCP - Insurance Assigned PCP 11/18/23 Cele Freire MD [address] [place] [id number] PCP - General Family Practice 11/18/23
--- OUTSIDE RECORDS SUMMARY | 2025-03-25 10:45 | XMS_ITS | Patient Health Record ---
Author Organization [facility] Address [address] [place] [address] Care Team Providers Care Care Clinician Name Role Phone Lakeisha Graves Unavailable [phone] Allergies Allergen (clinical drug ingredient) Drug/Non Drug [...] 1GM 1 ORAL NEEDED; Duration: -3 [facility] 014 Active Topamax 100MG 1 ORAL twice daily; Duration: -3 [facility] [place] 09/25/2012 Active Adipex-P 37.5 1 Oral daily; Duration: -3 [facility] [place] 1 Active Percocet 5-325MG 1 ORAL every six richard rs; Duration: 10 [facility] [place] 03/12/2014 Active KlonoPIN 0.5MG 1 ORAL AT HS/ NEED ED; Duration: -2 [facility] [place] 11/28/2012 Active EC-Naprosyn 500MG 1 ORAL twice daily; Duration: -3 [facility] [place] 12/30/2012 Active cloNIDine HCl 0.1MG 1 ORAL at bedtime; Duration: -3 [facility] [place] 07/31/2013 Active Immunizations Vaccine Route [...] W/U Status Risk Notes Problem Anxiety disorder (181588356) Anxiety disorder, unspecified (F41.9) Active confirmed Problem Migraine (disorder) (11748309) Migraine, unspecified without mention of intractable migraine without mention of status migrainosus (346.90) Active confirmed Major Problem Diffuse cystic mastopathy (05036170) Diffuse cystic mastopathy (610.1) Active confirmed Other Problem Dysmenorrhea (058626913) Dysmenorrhea (625.3) Active confirmed Diag Problem Backache (205090379) Unspecified backache (724.5) Active confirmed Diag Plan Of Treatment Pending Test Test Name Order Date Test, Urine 05/16/2014 PAP SMEAR 05/16/2014 Insurance Providers Payer Name Payer Address Payer Phone Subscriber Number Group Number Insured Name Patient Relationship to Insured Coverage Start Date Coverage End Date [facility] [address] [place] [address] [phone] PEGGY TAMAYO Self - patient is the insured Medical (General) History Medical History History ICD Code Dysmenorrhea 625.3 migraine anxiety Surgical History Surgery Date(Month/Year) c section cervical cryotherapy 1999 bilateral breast reduction 2002
--- OUTSIDE RECORDS SUMMARY | 2025-03-25 10:45 | XMS_ITS | Clinical Summary ---
[facility] Organization [facility] [address] [place] [address] Care Team Providers Care Claims Account Specialist Name Role Phone Unavailable Primary Care Provider Unavailabl e Surgical History Surgery Date Site/Laterality Comments SECTION 04/02/2006 PROCEDURE: HISTORICAL DELIVERY GASTRIC BYPASS 2019 PROCEDURE: ND GASTRIC RSTCV W/BYP W/SM INT RCNSTJ LIMIT ABSRPJ; COMMENT: gastric sleeve OTHER SURGICAL HISTORY 2020 PROCEDURE: HISTORY OTHER; COMMENT: Nasal septoplasty BREAST REDUCTION Bilateral PROCEDURE: ND BREAST REDUCTION Medical History Medical History Date Comments Bipolar affective disorder ( [facility] V24, [facility] V28) 10/16/2014 DX:Bipolar affective disorde r ([facility]) Anxiety DX:Anxiety Depression DX:Depression Migraine DX:Migraine Family [...] Years Used Date Smoking Tobacco: Former Cigarettes 1 Q uit: 04/08/2017 Smokeless Tobacco: Never Alcohol [...]
--- OUTSIDE RECORDS SUMMARY | 2025-03-25 10:45 | XMS_ITS | Clinical Summary ---
Author Organization [facility] Address [address] [address] Phone Care Team Providers Care Insurance Verification Clerk Name Role Phone Ren Banegas MD [...] topic Medical Devices Not on file [place] [address] ACO Member Subscriber Plan / Payer (Ef fective 2021-Present) Name:Aisha Dempsey Relation to Subscriber:Self Name:Aisha Dempsey Payer ID:[id number] Group ID:[id number] Type:Medicaid [address] [place] [address] ACO [employer] [facility] [employer]GET[employer] [address] [place], [place] [address]O Member Subscriber Plan / Payer (Ef fective 2021-Present) Name:Aisha Dempsey Relation to Subscriber:Self Name:Aisha Dempsey Payer ID:[id number] Group ID:[id number] Type:Medicaid Address: [address] [place] [address] ACO [employer] [place] [employer] [employer] [facility] Member Subscriber Plan / Payer (Ef fective 2021-Present) Name:Aisha Dempsey Relation to Subscriber:Self Name:Aisha Dempsey Payer ID:[id number] Group ID:[id number] Type:Medicaid Address: [address] [place] [employer] [employer] [facility] Care Teams Insurance Verification Clerk Relationship Specialty Start Date End Date Ren Banegas MD PCP - General Family Medicine 07/11/21 Additional Source Comments The information contained in this document represents components of the legal health record. It is not the complete legal health record.[facility]
--- OUTSIDE RECORDS SUMMARY | 2025-03-25 10:45 | XMS_ITS | Clinical Summary ---
Author Organization [facility] Address [address] [id number] Care Team Providers Care Design Coordinator Name Role Phone Ren Banegas MD Primary Care Provider [phone] Allergies Active Allergy Reactions Criticality Noted Date [...] BY MOUTH EVERY DAY Active sodium chloride ([place] Saline) 0.65% nasal spray [place] Saline 0.65 % nasal spray aerosol Active [...] 01/12/1996 Mammogram 2023 Alcohol/Substance Use Screening 04/02/2024 Influenza Vaccine (#1) 2024 7, 12/28/2015 COVID-19 Vaccine ( - 2024-2 6 season) 2024 02/13/2021, 08/17/2020, 07/27/2020 DTaP,Tdap,and Td Vaccines (3 - Td or Tdap) 10/23/2026 10/23/2016, 02/07/2010 Hepatitis B Vaccines Completed 07/20/1997, 02/18/1997, 01/14/1997 Pneumococcal Vaccine: Pediatric (0-5 Years) and At-Risk Patients (6-50 Years) Aged Out 03/05/2012 No longer eligible based on patient's age to complete this topic Insurance [place] [phone] Care Teams Design Coordinator Relationship Specialty Start Date End Date Ren Banegas MD [address] [place] [address] PCP - General Family Medicine 10/07/21
== END 2025-03-25 11:03 | disposition home or self-care (01) ==
LOC: HO.HCC 10:41
PROVIDERS: Visit Provider Internal Medicine
DX: F11.99 Opioid use, unspecified with unspecified opioid-induced disorder (principal)
CPT/HCPCS: 99213